=== PATIENT | female | born 1945 | race Caucasian/White ===

== ENCOUNTER → 2016-07-18 | Outpatient (CLI) | payer BC ==
[~2016-07-18] MED LIST: ACET-1325; ASPI81CH2 PO; CLXOPS3; DIFL0.0519; DVN80125 PO; GLC/500 PO; MULT-506 PO
--- NOTE | 2016-07-19 07:55 | MAMMOGRAPHY REPORT ---
BILATERAL DIGITAL SCREENING MAMMOGRAM WITH CAD: 07/18/2016 CLINICAL HISTORY: Routine screening. Patient has no complaints. TECHNIQUE: Current study was also evaluated with a Computer Aided Detection (CAD) system. Bilatera l CC and MLO views were obtained. COMPARISON: Comparison is made to exams dated: 06/28/2015 mammogram, 04/09/2014 mammogram, 3 mammogram, 04/02/2012 mammogram, 03/26/2011 mammogram, and 03/24/2010 mammogram - [facility]. BREAST COMPOSITION: There are scattered areas of fibroglandular density in both breasts. FINDINGS: No suspicious masses, calcifications, or areas of architectural distortion are noted in e ither breast. There has been no significant interval change compared to prior exams. Scattered bilat eral benign-appearing calcifications are not significantly changed. IMPRESSION: ACR BI-RADS CATEGORY 2: BENIGN There is no mammographic evidence of malignancy. A 1 year screening mammogram is recommended. The p atient will receive written notification of the results. Approximately 10% of breast cancers are not detected with mammography. A negative mammographic repor t should not delay biopsy if a clinically suggestive mass is present. Corry Staley M.D. /:07/18/2016 15:46:08 Skatesman: Nora MONTIEL(Kendal)(M), [facility] letter sent: Normal 1/2 BI-RADS Code: ACR BI-RADS Category 2: Benign
== END | disposition home or self-care (01) ==
LOC: C.MAMM 14:35
PROVIDERS: ATTEND Family Medicine
DX: Z12.31 Encounter for screening mammogram for malignant neoplasm of breast (principal)

== ENCOUNTER → 2017-08-16 | Outpatient (CLI) | payer BC ==
--- NOTE | 2017-08-19 14:34 | MAMMOGRAPHY REPORT ---
BILATERAL DIGITAL SCREENING MAMMOGRAM TOMOSYNTHESIS WITH CAD: 08/16/2017 CLINICAL HISTORY: Routine screening. Patient has no complaints. TECHNIQUE: Breast tomosynthesis in addition to standard 2D mammography was performed. Current study was also evaluated with a Computer Aided Detection (CAD) system. COMPARISON: Comparison is made to exams dated: 07/18/2016 mammogram, 06/28/2015 mammogram, 04/09/2014 m ammogram, 04/07/2013 mammogram, 04/02/2012 mammogram, and 03/26/2011 mammogram - [facility]. BREAST COMPOSITION: There are scattered areas of fibroglandular density in both breasts. FINDINGS: No suspicious masses, calcifications, or areas of architectural distortion are noted in ei ther breast. There has been no significant interval change compared to prior exams. Scattered bilater al benign-appearing calcifications are not significantly changed. IMPRESSION: ACR BI-RADS CATEGORY 2: BENIGN There is no mammographic evidence of malignancy. A 1 year screening mammogram is recommended. The pa tient will receive written notification of the results. Approximately 10% of breast cancers are not detected with mammography. A negative mammographic report should not delay biopsy if a clinically suggestive mass is present. Corry Staley M.D. /:08/16/2017 15:31:26 Hospital Clinic Assistant: Saskia Alfonso, [facility] letter sent: Normal 1/2 BI-RADS Code: ACR BI-RADS Category 2: Benign
== END | disposition home or self-care (01) ==
LOC: C.MAMM 15:09
PROVIDERS: ATTEND Family Medicine
DX: Z12.31 Encounter for screening mammogram for malignant neoplasm of breast (principal)

== ENCOUNTER 2018-07-16 14:01 | Inpatient (IN) ==
--- NOTE | 2018-07-16 15:05 | CT Scan Report ---
CT head/brain wo con CLINICAL HISTORY: 72 years-old Female presenting with stroke sx, fall 2 days ago, posterior head inju ry. TECHNIQUE: Multidetector CT imaging of the head was performed without the use of intravenous contrast . IV contrast: None. One or more dose lowering techniques were used consistent with the principles of ALARA (as low as reasonably achievable), including automatic exposure control, mA or kV adjustment t o individual patient size, and/or use of iterative reconstruction. COMPARISON: None. CT DOSE (mGy.cm): The estimated cumulative dose is 788.63 mGycm. FINDINGS: Court Bailiff topogram: Unremarkable. Proportional ventricular and sulcal prominence, likely age-related parenchymal volume loss. No hemorr dion. Periventricular and subcortical white matter hypoattenuation, nonspecific but likely indicative of chronic small vessel ischemic change. Extensive chronic small vessel change in the external capsu les, left greater right. Old lacunar infarct in the left globus pallidus. No acute territorial infarc t. No mass effect or midline shift. No extra-axial fluid collection. Paranasal sinuses and mastoid ai r cells clear. Calvarium intact. IMPRESSION: 1. Chronic small vessel ischemic change. No acute intracranial abnormality. Electronically signed by: Ye Calles M.D. 07/16/2018 3:04 PM
[2018-07-16] MEDS ORDERED: ASPIRIN CHEW 324 MG PO STA (15:39)
[2018-07-16] MEDS ORDERED: SODIUM CHLORIDE 0.9% 1000ML 1,000 ML IV SCH (15:45)
--- NOTE | 2018-07-16 16:05 | XRay Report ---
XR chest 1V portable HISTORY: Stroke symptoms. COMPARISON: Chest 01/10/2015. FINDINGS: The lungs are clear. Cardiac silhouette is normal in size. No pleural effusions. No pneumot horax. IMPRESSION: No acute process. Electronically signed by: Dao Madera M.D. 07/16/2018 4:04 PM
[2018-07-16 16:12] LABS: Basophils # (auto) 0.02 K/uL (0-0.2); Basophils % (auto) 0.3 %; Eosinophils # (auto) 0.04 K/uL (0-0.5); Eosinophils % (auto) 0.5 %; Hematocrit (blood only) 38.3 % (37-47); Hemoglobin 13.4 g/dL (12.0-16.0); Immature Granulocytes # (auto) 0.01 K/uL (0.00-0.02); Immature Granulocytes % (auto) 0.1 %; Lymphocytes # (auto) 0.79 K/uL (1.2-3.4); Lymphocytes % (auto) 10.4 %; Mean Corpuscular Volume 91.2 fL (80-100); Mean Platelet Volume 10.1 fL (7.4-10.4); Monocytes # (auto) 0.77 K/uL (0.11-0.59); Monocytes % (auto) 10.2 %; Neutrophils # (auto) 5.93 K/uL (1.4-6.5); Neutrophils % (auto) 78.5 %; Platelet Count 147 K/uL (130-400); RDW Standard Deviation 43.3 fL (36.4-46.3); White Blood Count 7.56 K/uL (4.8-10.8)
[2018-07-16 16:31] LABS: Alanine Aminotransferase 25 U/L (12-78); Albumin Level 2.6 gm/dl (3.4-5.0); Aspartate Aminotransferase 21 U/L (15-37); BUN Creatinine Ratio 17.9 (10-20); Blood Urea Nitrogen 32 mg/dl (7-18); Calcium 8.6 mg/dl (8.5-10.1); Carbon Dioxide 26 mmol/L (21-32); Chloride 98 mmol/L (98-107); Creatinine Clr Calc Pharmacy 26.9 ml/min; Est GFR (African American) 33.4; Est GFR (Non-African American) 28.8; Glucose 269 mg/dl (70-99); Magnesium 2.4 mg/dl (1.8-2.4); Sodium 133 mmol/L (136-145)
[2018-07-16 16:36] LABS: Albumin Globulin Ratio 0.6 (0.9-2); Alkaline Phosphatase 88 U/L (45-117); Bilirubin,Total 1.2 mg/dl (0.2-1); Globulin 4.5 gm/dl (2.5-4.0); Total Protein 7.1 gm/dl (6.4-8.2); Troponin I < 0.015 ng/ml (0-0.045)
[2018-07-16] MEDS ORDERED: SODIUM CHLORIDE 0.9% 1000ML 500 ML IV ONE (16:43)
--- NOTE | 2018-07-16 17:30 | Emergency Department Note ---
Entered by Tao Edward acting as a scribe for John Cabrera MD History of Present Illness General Chief complaint: Illness Stated complaint: HAVING TROUBLE SPEAKING Time Seen by Provider: 07/16/18 15:24 Source: patient and family History of Present Illness Onset (ago): day(s) 3 Location: mouth (speech) Pain Consistency: + other (persistent) Quality: + other (trouble finding words) Associated symptoms: + nausea/vomiting (night prior to symptom onset) and + oth er (denies one-sided weakness or urinary symptoms); no chest pain, no headaches and no shortness of breath The patient is a 72 year old female who presents to the Emergency Room with complaints of persistent speech difficulties for the past three days. The patient reports that she has been having trouble finding words, but her speech is not slurred. She denies headaches, one-sided weakness, chest pain, shortness of breath, urinary symptoms, or diarrhea. The notes that she vomited the night prior to the onset of her symptoms, but she has not vomited since that time. The patient reports that she has stopped taking her medications for the past three days, including metformin and medication for hypertension. She reports a history of stroke around 10 years ago, and the notes that she has a residual right facial droop from that event. Home Medications Home Medications Medication Instructions Recorded Confirmed Type aspirin [Aspir-81] 81 mg PO DAILY 07/16/18 07/16/18 History metformin [Glucophage] 0 mg PO BID 07/16/18 07/16/18 History multivitamin 1 tab PO DAILY 07/16/18 07/16/18 History valsartan-hydrochlorothiazide 0.5 tab PO DAILY 07/16/18 07/16/18 History [Diovan HCT] Allergies Allergy/AdvReac Type Severity Reaction Status Date / Time olmesartan AdvReac Unknown coughing/sn Verified 07/16/18 15:58 eezing Past Med/Surg History Medical History Essential hypertension Hemorrhagic cerebrovascular accident (CVA) (1994) Mixed hyperlipidemia Type 2 diabetes mellitus Surgical History S/P BRITTANY-BSO (total abdominal hysterectomy and bilateral salpingo-oophorectomy) S/P tonsillectomy Status post hernia repair Family History Other Colorectal cancer Diabetes Hypertension Social History Feels Safe at Home: Yes Smoking Status: Never smoker Review of Systems See HPI for pertinent positives & negatives. and A total of 10 systems reviewed and were otherwise negative Physical Exam Vital Signs Vital Signs - 24 hr 07/16/18 14:06 07/16/18 15:09 07/16/18 16:00 Temperature 37.2 C Temperature Source Oral Sepsis Recent Fever Within 48 Hours No Sepsis New/Unexplained Change in Mental Status No Sepsis Action Taken by Nursing No Action Required Pulse Rate 102 H Pulse Rate [Right Finger] 94 H 88 Pulse Rhythm [Right Finger] Regular Pulse Strength [Right Finger] Normal Respiratory Rate 16 18 18 Respiratory Effort / Characteristics Non-Labored Respiratory Depth Normal Respiratory Pattern Regular Blood Pressure 151/90 H Blood Pressure [Right Arm] 161/112 H 146/99 H Blood Pressure Mean 110 Blood Pressure Mean [Right Arm] 128 114 Blood Pressure Position [Right Arm] Lying Pulse Oximetry 95 95 99 Oxygen Delivery Method Room Air Room Air 07/16/18 18:00 Temperature Temperature Source Sepsis Recent Fever Within 48 Hours Sepsis New/Unexplained Change in Mental Status Sepsis Action Taken by Nursing Pulse Rate Pulse Rate [Right Finger] 80 Pulse Rhythm [Right Finger] Pulse Strength [Right Finger] Respiratory Rate 18 Respiratory Effort / Characteristics Respiratory Depth Respiratory Pattern Blood Pressure Blood Pressure [Right Arm] 150/91 H Blood Pressure Mean Blood Pressure Mean [Right Arm] 110 Blood Pressure Position [Right Arm] Pulse Oximetry 98 Oxygen Delivery Method GENERAL: Patient is in no acute distress. HEENT: No acute trauma, normocephalic atraumatic, mucous membranes moist, no nasal congestion, no scleral icterus. NECK: No stridor, no adenopathy, no meningismus, trachea is midline. LUNGS: Clear to auscultation bilaterally, no wheeze, no rhonchi, breath sounds equal. HEART: Without murmurs gallops or rubs, regular rate and rhythm. ABDOMEN: Soft, nontender, bowel sounds positive, no hernias, no peritonitis. EXTREMITIES: No cyanosis or edema, full range of motion of all the joints without pain or difficulty, no signs for acute trauma. NEUROLOGIC: Slight right-sided facial droop which is by history old, no pronator drift, no cerebellar dysfunction. No speech slur, but there is some difficulty finding words. SKIN: No rash, no jaundice, no diaphoresis. Course 1528: The patient was evaluated in room D4A, and a complete history and physical examination were performed. 1645: I updated the patient on current results and plan. 1655: I consulted Dr. Petit [facility] Hospitalist. The patient will be reevaluated for hospitalization. Consultations Consultation #1: I consulted Dr. Petit [facility] Hospitalist. The patient will be reevaluated for hospitalization. Time: 16:55 Administered Medications Discontinued Medications Aspirin (Aspirin) 324 mg PO NOW STA Stop: 07/16/18 15:40 Last Admin: 07/16/18 16:24 Dose: 324 mg Documented by: [id number] Sodium Chloride (Nss 1000ml) 1,000 mls @ 50 mls/hr IV .Q20H DAHIANA Stop: 08/15/18 15:44 Last Admin: 07/16/18 16:32 Dose: Not Given Documented by: [id number] Sodium Chloride (Nss 1000ml) 500 mls @ 999 mls/hr IV .Q31M ONE Stop: 07/16/18 17:13 Last Infusion: 07/16/18 17:30 Dose: 0 mls/hr Documented by: [id number] Admin: 07/16/18 16:53 Dose: 999 mls/hr Documented by: [id number] Medical Decision Making Differential Diagnosis Differential diagnosis: stroke, TIA, intracranial bleeding, UTI, viral illness, electrolyte imbalance, anemia, medication reaction, medication noncompliance Medical Records Attestation: I reviewed the patient's medical records. Home Medications Current Medication List: was personally reviewed by me Laboratory Data Attestation: I reviewed the patient's lab results. Result diagrams: 07/16/18 15:46 07/16/18 15:46 Lab Results 07/16/18 07/16/18 07/16/18 Range/Units 15:46 15:46 15:46 WBC 7.56 (4.8-10.8) K/uL RBC 4.20 (4.2-5.4) M/uL Hgb 13.4 (12.0-16.0) g/dL Hct 38.3 (37-47) % MCV 91.2 (80-100) fL MCH 31.9 (25-34) pg MCHC 35.0 (32-36) g/dL RDW Std Deviation 43.3 (36.4-46.3) fL RDW Coeff of Murray 13.0 (11.5-14.5) % Plt Count 147 (130-400) K/uL MPV 10.1 (7.4-10.4) fL Immature Gran % (Auto) 0.1 % Neut % (Auto) 78.5 % Lymph % (Auto) 10.4 % [place] % (Auto) 10.2 % Eos % (Auto) 0.5 % Baso % (Auto) 0.3 % Immature Gran # (Auto) 0.01 (0.00-0.02) K/uL Neut # (Auto) 5.93 (1.4-6.5) K/uL Lymph # (Auto) 0.79 L (1.2-3.4) K/uL [place] # (Auto) 0.77 H (0.11-0.59) K/uL Eos # (Auto) 0.04 (0-0.5) K/uL Baso # (Auto) 0.02 (0-0.2) K/uL PT Cancelled INR Cancelled APTT Cancelled PTT Ratio Cancelled Sodium 133 L (136-145) mmol/L Potassium 4.0 (3.5-5.1) mmol/L Chloride 98 (98-107) mmol/L Carbon Dioxide 26 (21-32) mmol/L Anion Gap 9.0 (3-11) BUN 32 H (7-18) mg/dl Creatinine 1.76 H (0.6-1.2) mg/dl Est Cr Clr Drug Dosing 26.9 ml/min Est GFR ( Amer) 33.4 Est GFR (Non-Af Amer) 28.8 BUN/Creatinine Ratio 17.9 (10-20) Glucose 269 H (70-99) mg/dl Calcium 8.6 (8.5-10.1) mg/dl Magnesium 2.4 (1.8-2.4) mg/dl Total Bilirubin 1.2 H (0.2-1) mg/dl AST 21 (15-37) U/L ALT 25 (12-78) U/L Alkaline Phosphatase 88 (45-117) U/L Troponin I < 0.015 (0-0.045) ng/ml Total Protein 7.1 (6.4-8.2) gm/dl Albumin 2.6 L (3.4-5.0) gm/dl Globulin 4.5 H (2.5-4.0) gm/dl Albumin/Globulin Ratio 0.6 L (0.9-2) 07/16/18 Range/Units 17:02 WBC (4.8-10.8) K/uL RBC (4.2-5.4) M/uL Hgb (12.0-16.0) g/dL Hct (37-47) % MCV (80-100) fL MCH (25-34) pg MCHC (32-36) g/dL RDW Std Deviation (36.4-46.3) fL RDW Coeff of Murray (11.5-14.5) % Plt Count (130-400) K/uL MPV (7.4-10.4) fL Immature Gran % (Auto) % Neut % (Auto) % Lymph % (Auto) % [place] % (Auto) % Eos % (Auto) % Baso % (Auto) % Immature Gran # (Auto) (0.00-0.02) K/uL Neut # (Auto) (1.4-6.5) K/uL Lymph # (Auto) (1.2-3.4) K/uL [place] # (Auto) (0.11-0.59) K/uL Eos # (Auto) (0-0.5) K/uL Baso # (Auto) (0-0.2) K/uL PT 11.0 INR 1.1 APTT 29.6 PTT Ratio 1.1 Sodium (136-145) mmol/L Potassium (3.5-5.1) mmol/L Chloride (98-107) mmol/L Carbon Dioxide (21-32) mmol/L Anion Gap (3-11) BUN (7-18) mg/dl Creatinine (0.6-1.2) mg/dl Est Cr Clr Drug Dosing ml/min Est GFR ( Amer) Est GFR (Non-Af Amer) BUN/Creatinine Ratio (10-20) Glucose (70-99) mg/dl Calcium (8.5-10.1) mg/dl Magnesium (1.8-2.4) mg/dl Total Bilirubin (0.2-1) mg/dl AST (15-37) U/L ALT (12-78) U/L Alkaline Phosphatase (45-117) U/L Troponin I (0-0.045) ng/ml Total Protein (6.4-8.2) gm/dl Albumin (3.4-5.0) gm/dl Globulin (2.5-4.0) gm/dl Albumin/Globulin Ratio (0.9-2) Imaging Data Radiologist's Impression: Radiology results as stated below per my review and the radiologist's interpretation: XR chest 1V portable HISTORY: Stroke symptoms. COMPARISON: Chest 01/10/2015. FINDINGS: The lungs are clear. Cardiac silhouette is normal in size. No pleural effusions. No pneumothorax. IMPRESSION: No acute process. Electronically signed by: Dao Madera M.D. 07/16/2018 4:[address] head/brain wo con CLINICAL HISTORY: 72 years-old Female presenting with stroke sx, fall 2 days ago, posterior head injury. TECHNIQUE: Multidetector CT imaging of the head was performed without the use of intravenous contrast. IV contrast: None. One or more dose lowering techniques were used consistent with the principles of ALARA (as low as reasonably achievable), including automatic exposure control, mA or kV adjustment to individual patient size, and/or use of iterative reconstruction. COMPARISON: None. CT DOSE (mGy.cm): The estimated cumulative dose is 788.63 mGycm. FINDINGS: Reeling Operator topogram: Unremarkable. Proportional ventricular and sulcal prominence, likely age-related parenchymal volume loss. No hemorrhage. Periventricular and subcortical white matter hypoattenuation, nonspecific but likely indicative of chronic small vessel ischemic change. Extensive chronic small vessel change in the external capsules, left greater right. Old lacunar infarct in the left globus pallidus. No acute territorial infarct. No mass effect or midline shift. No extra-axial fluid collection. Paranasal sinuses and mastoid air cells clear. Calvarium intact. IMPRESSION: 1. Chronic small vessel ischemic change. No acute intracranial abnormality. Electronically signed by: Ye Calles M.D. 07/16/2018 3:04 PM ECG Data Attestation: I personally reviewed and interpreted this ECG as follows: Indication: other (speech difficulties) Rate (beats per minute): 86 Rhythm: normal sinus Findings: + other (potential old septal infarct); no PVC and no ST elevation Blood Pressure Blood Pressure Findings: Elevated blood pressure Blood Pressure Disposition: further management by hospitalist MDM Narrative There is no leukocytosis or concerning anemia. There was an elevation to the creatinine, this could be consistent with dehydration. Glucose was slightly high at 269. No hepatitis by our testing. EKG shows a sinus rhythm, no acute ischemia. Cardiac enzyme testing x1 is not consistent with acute cardiac injury. Chest x-ray does not show mediastinal widening, pneumonia or pneumothorax. Brain CT shows no acute bleed or mass-effect. On exam, there were no focal neurologic extremity deficits. She did have some difficulty finding her words, no speech slur. The patient received IV saline. She was given oral aspirin. The patient is currently resting comfortably. I do think further workup in the hospital is warranted. She may have had a small stroke just not seen on CT. Further imaging and further neurologic workup is warranted. I spoke to the patient and case technician. The on-call hospitalist was consulted. Impression & Plan Stroke-like symptoms, Difficulty with speech, Vomiting, JUAN CARLOS (acute kidney injury) Discharge Plan Visit Data *Final* Discharge Date/Time: 07/16/18 18:33 Chief Complaint: Illness Stated Complaint: HAVING TROUBLE SPEAKING ED Provider: John Cabrera Discharge Problem: Stroke-like symptoms, Difficulty with speech, Vomiting, JUAN CARLOS (acute kidney injury) Patient Disposition: Admitted As Inpatient Discharge Instructions Interventions: ED Discharge Assessment Last Done: 07/16/18 18:33 Discharge Problem: Vomiting Qualifiers: Vomiting type: unspecified Vomiting Intractability: unspecified Nausea presence: unspecified Qualified Code(s): R11.10 - Vomiting, unspecified The scribe's documentation has been prepared under my direction and personally reviewed by me in its entirety. I confirm that the note above accurately reflects all work, treatment, procedures, and medical decision making performed by me.
[2018-07-16 17:37] LABS: INR 1.1 (0.9-1.1); Partial Thromboplastin Ratio 1.1; Partial Thromboplastin Time 29.6 Seconds (21.0-31.0)
--- NOTE | 2018-07-16 17:50 | History & Physical Report ---
Date of Service July 16, 2018 Assessment & Plan (1) Aphasia: - Patient presenting with difficulty finding words with very minimal stuttering of words - however speech largely comprehensible and follows commands/conversation - this started after a fall resulting in striking her head on a table and emesis - symptoms now have been present for a few days which would be outside the window of a TIA - H/O hemorrhagic CVA (1994) [place] [facility] [place] reports aphasia at that time but completely resolved and a mild facial droop that is very subtle and not noticeable on facial movements - Head CT - no acute findings; evidence of chronic small vessel ischemic changes, old lacunar infarct in L globus pallidus - Will order MRI to R/O CVA given her presentation that could be related to a possible new CVA - Carotid dopplers and monitor on telemetry for evidence of arrhythmia (denies H/O such) - Continue ASA 81 mg daily, will await MRI and consider Plavix addition - does have a hemorrhagic H/O but ischemic etiology may be a greater risk given her H/O T2DM, HTN, HLD - Will obtain an echocardiogram for further assessment - PT/OT/Speech; Stroke protocol - Consult Neurology - appreciate input Present on Admission?: Yes (2) JUAN CARLOS (acute kidney injury): - It is uncertain if this is JUAN CARLOS vs her baseline due to lack of records - she could easily have some diabetic nephropathy or even pre-renal from medications/emesis - Will trend BMP and gently hydrate with IVF and monitor - avoid nephrotoxins Present on Admission?: Yes (3) Type 2 diabetes mellitus: - She is uncertain of her A1c but states she thinks this is high - will check in AM labs - Hold Metformin given elevated Cr and cover with SSI Present on Admission?: Yes (4) Essential hypertension: - Hold Valsartan/HCTZ given elevated Cr and until CVA R/O'd Present on Admission?: Yes (5) Mixed hyperlipidemia: - Check lipid panel in AM - Start Atorvastatin 40 mg daily Present on Admission?: Yes (6) DVT prophylaxis: Disposition: Await further testing and PT/OT History of Present Illness Chief Complaint: Aphasia Primary Care Provider: Georges Carrillo Ms. Wong is a 72 y/o female with PMHx of Hemorrhagic CVA (1994), T2DM, HTN, and HLD who presents to the ED c/o aphasia. She reports that she sustained a fall on Saturday resulting in hitting the backside of the L side of her head. She states she initially had a mild headache and some pain with pushing on the head but this has since resolved. She is not completely sure how she fell but does not recall tripping. She states she hit her head on a table but denies LOC that she is aware of. She then developed one large episode of emesis on Saturday and nothing since. However, states she has never felt right since that emesis. She denies abdominal pain or nausea. Denies further headaches or vision changes. She then noted at sometime after her emesis she was having difficulty finding her words. She knows what she wants to say but cannot get them out. She can be slow to speak during my assessment and does struggle to find intermittent words. She would stutter on a couple words however followed the conversation well and could answer appropriately. Denies saying words that she does not mean to say. She also notes that she had difficulty ambulating up the stairs at her home. With help from her she was able to. She states it feels more like she has generalized weakness not so much motion or balance issues. She denies any other focal deficits she has noticed. She does follow routinely with her eye doctor amadeo baer her diabetes and states he sugars are not as controlled as she would like. She also states she has not taken her Metformin or BP medication for a couple days. She denies fever/chills, CP, SOB, palpitations, diarrhea/constipation. She states she did have aphasia with her previous stroke that resolved, has a mild facial droop at baseline, but no other residual deficits. Allergies Allergy/AdvReac Type Severity Reaction Status Date / Time olmesartan AdvReac Unknown coughing/sn Verified 07/16/18 15:58 eezing Home Medications Home Medications Medication Instructions Recorded Confirmed Type multivitamin 1 tab PO DAILY 07/16/18 07/16/18 History valsartan-hydrochlorothiazide 0.5 tab PO DAILY 07/16/18 07/16/18 History [Diovan HCT] cephalexin 500 mg PO BID #13 cap 07/17/18 Rx clopidogrel [Plavix] 75 mg PO DAILY 30 Days #30 tab 07/17/18 Rx metformin [Glucophage] 850 mg PO BID #0 tab 07/17/18 07/16/18 Rx Past Med/Surg History Medical History Essential hypertension Hemorrhagic cerebrovascular accident (CVA) (1994) Mixed hyperlipidemia Type 2 diabetes mellitus Surgical History History of cataract surgery History of knee replacement procedure of left knee S/P BRITTANY-BSO (total abdominal hysterectomy and bilateral salpingo-oophorectomy) S/P tonsillectomy Status post hernia repair Social History Communication Ability: Effective Beliefs That Will Affect Care: None marital status: Current Living Situation: Spouse current occupational status: retired Other Information That Helps Us Care for You: No other: 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, 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 [employer] Feels Safe at Home: Yes Safety Concerns: Feels Safe At This Time Smoking Status: Never smoker Hx Alcohol Use: No Hx Substance Use: No Review of Systems Constitutional: + fatigue and + weakness (generalized); no fever, no chills and no anorexia Eyes: no diplopia, no eye pain, no photophobia, not seeing flashes and no worsening vision Ear, Nose, Mouth, Throat: no dysphagia Respiratory: no cough and no dyspnea Cardiovascular: no chest pain, no palpitations, no lightheadedness and no edema Gastrointestinal: + vomiting (one episode on Saturday); no abdominal pain, no nausea, no constipation, no diarrhea/loose stools, no blood in stools and no melena Genitourinary (Female): no dysuria Musculoskeletal: no body aches Integumentary: no rash Neurologic: + falls, + generalized weakness, + headache(s) (initially on fall - none currently) and + abnormal speech; no tingling, no numbness, no abnormal movements, no confusion and no memory loss Physical Exam Vital Signs (Past 24 Hours): Last Vital Signs Temp 37.2 C 07/16/18 14:06 Pulse 88 07/16/18 16:00 Resp 18 07/16/18 16:00 BP 146/99 H 07/16/18 16:00 Pulse Ox 99 07/16/18 16:00 Constitutional: WD/WN, vitals as above Eyes: + anicteric sclerae, PERRL and EOM intact bilaterally ENMT: Ears: no hearing impairment Mouth: no oral mucosal abnormality and no tongue abnormality Throat: uvula midline; no posterior oropharynx abnormality Neck: normal visual inspection and trachea midline Respiratory: normal respiratory effort, lungs clear to auscultation Cardiovascular: RRR, no murmur, no edema Gastrointestinal (Abdomen): Inspection/Auscultation: normal bowel sounds Percussion/Palpation: abdomen soft; abdomen nontender Musculoskeletal: Head/Neck/Chest: normocephalic and head atraumatic Extrem ities: no cyanosis and no clubbing Skin: no rashes, warm and dry Neurologic: moves all extremities and awake Speech / Cognition: + abnormal speech and + anomia Motor/Sensory: no tremor, normal movement and no pronator drift Cranial Nerves: PERRL, normal accommodation, EOM intact bilaterally, tongue midline, normal hearing and no nystagmus Coordination: normal [id number] test (however movement was slow but connection intact) and normal rapid alternating movements Psychiatric: A+Ox3, euthymic affect Code Status & VTE Plan Code Status FULL CODE Supervising Physician Co-Signing Physician Notes Attending note: patient seen and examined with Hailee Shepherd PA-C. I agree with her HPI, history, exam, ROS and A/P. I personally reviewed the labs and imaging findings. Patient seen by me in the morning on 07/17/18. Discussed details of the admission over the phone with Hailee DIAZ on 07/16/18. Patient was feeling much better in the morning on 07/17. No further symptoms of word finding, weakness. Discussed results of MRI, no acute stroke, there was evidence of old strokes. Discussed with Dr. Krishna, appreciate his recommendations. - Possible expressive aphasia, weakness: likely a concussion from the fall she suffered several days prior to admission no evidence of acute stroke on MRI carotid doppler negative for significant stenosis see H&P and later the discharge summary for full details.
[2018-07-16] MEDS ORDERED: MAGNESIUM HYDROXIDE SUSP 30 ML UDC PO PRN (19:52)
[2018-07-16] MEDS ORDERED: POLYETHYLENE (MIRALAX) 17 GM PACK PO PRN (19:52)
[2018-07-16] MEDS ORDERED: ALUMINUM/MAGNESIUM SUSP 30 ML UDC PO PRN (19:52)
[2018-07-16] MEDS ORDERED: GLUCAGON FOR INJ 1 MG VIAL SQ PRN (19:52)
[2018-07-16] MEDS ORDERED: CARBOHYDRATES FOR HYPOGLYCEMIA PO PRN (19:52)
[2018-07-16] MEDS ORDERED: GLUCOSE 40% GEL 15 GM TUBE PO PRN (19:52)
[2018-07-16] MEDS ORDERED: PHARMACIST DISCHARGE MED REC CONSULT PRN (19:52)
[2018-07-16] MEDS ORDERED: GLUCOSE 10 TABS/TUBE PO PRN (19:52)
[2018-07-16] MEDS ORDERED: ACETAMINOPHEN 325 MG TAB PO PRN (19:52)
[2018-07-16] MEDS ORDERED: DEXTROSE 50% 50 ML SYRINGE IV PRN (19:52)
[2018-07-16] MEDS ORDERED: ONDANSETRON INJ 2 MG/ML 2 ML VIAL IV PRN (19:52)
[2018-07-16] MEDS: SODIUM CHLORIDE 0.9% 1000ML 1,000 ML IV SCH (20:51)
[2018-07-16 21:24] LABS: Appearance Urine Cloudy (Clear); Bacteria Urine Automated 4+ (Negative); Bilirubin Urine Negative (Negative); Blood Urine 3+ (Negative); Color Urine Dark Yellow; Glucose Urine UA 1+ (Negative); Ketones Urine 1+ (Negative); Leukocyte Esterase Urine 2+ (Negative); Nitrite Urine Positive (Negative); Protein Urine 2+ (Negative); RBC Urine Automated >30 /hpf (0-4); Specific Gravity Urine 1.019 (1.000-1.030); Urobilinogen Urine Negative (Negative); WBC Urine Automated >30 /hpf (0-5); pH Urine 5.5 (4.5-7.5)
--- NOTE | 2018-07-16 21:59 | Ultrasound Report ---
CAROTID ARTERY ULTRASOUND CLINICAL HISTORY: CVA Workup COMPARISON STUDY: None. TECHNIQUE: Real-time, grayscale, and color Doppler sonography of the carotid and vertebral arteries w as performed. Images were viewed in the transverse and longitudinal planes. FINDINGS: There is mild atherosclerotic plaque . Velocity measurements are listed below. COMMON CAROTID PEAK SYSTOLIC VELOCITY (CM/S): RIGHT 59 LEFT 81 ICA PEAK SYSTOLIC VELOCITY (CM/S): RIGHT 57 LEFT 74 Systolic ratios between the internal to common carotid arteries are normal. Antegrade flow is seen in the vertebral arteries. The external carotid arteries are patent. Blood pressure in the right arm measured 159/96. Blood pressure in the left arm measured 153/96. IMPRESSION: No evidence for a hemodynamically significant stenosis. Electronically signed by: Mario Doyle M.D. 07/16/2018 9:58 PM
--- NOTE | 2018-07-16 22:16 | Magnetic Resonance Report ---
MRI OF THE BRAIN WITHOUT CONTRAST CLINICAL HISTORY: Aphasia. Evaluate for cerebrovascular accident. COMPARISON STUDY: Head CT performed earlier today. TECHNIQUE: Utilizing a 1.5 Shayy magnet and dedicated coil, multiplanar, multiecho imaging of the bra in was performed without IV contrast. FINDINGS: There are no foci of restricted diffusion to suggest acute infarct. No acute intracranial h emorrhage, midline shift or mass effect is present. Several old lacunar infarcts are noted. An old le ft basal ganglia infarct is also noted. White matter T2 hyperintense foci suggest moderate small vess el disease. Basilar cisterns are patent. There are no extra-axial collections. Ventricular system is normal for age. Calvarial signal is maintained. Flow-voids for the major intracranial vessels are pre sent. Orbits are unremarkable. No intracranial masses are identified on this unenhanced exam. IMPRESSION: 1. No acute intracranial findings. 2. Several old infarcts and moderate small vessel disease. Electronically signed by: Mario Doyle M.D. 07/16/2018 10:14 PM
[2018-07-16] MEDS: INSULIN ASPART 100 UNITS/ML 3 ML PEN SC SCH (22:36)
[2018-07-17 06:44] LABS: Basophils # (auto) 0.01 K/uL (0-0.2); Basophils % (auto) 0.1 %; Eosinophils # (auto) 0.12 K/uL (0-0.5); Eosinophils % (auto) 1.6 %; Hemoglobin 12.7 g/dL (12.0-16.0); Immature Granulocytes # (auto) 0.03 K/uL (0.00-0.02); Immature Granulocytes % (auto) 0.4 %; Lymphocytes # (auto) 0.74 K/uL (1.2-3.4); Lymphocytes % (auto) 10.1 %; Mean Corpuscular Hgb Conc 35.3 g/dL (32-36); Mean Corpuscular Volume 91.4 fL (80-100); Mean Platelet Volume 9.6 fL (7.4-10.4); Monocytes # (auto) 0.87 K/uL (0.11-0.59); Monocytes % (auto) 11.9 %; Neutrophils # (auto) 5.55 K/uL (1.4-6.5); Neutrophils % (auto) 75.9 %; Platelet Count 148 K/uL (130-400); RDW Standard Deviation 44.1 fL (36.4-46.3); Red Blood Count 3.94 M/uL (4.2-5.4); White Blood Count 7.32 K/uL (4.8-10.8)
[2018-07-17 07:06] LABS: BUN Creatinine Ratio 21.5 (10-20); Calcium 8.5 mg/dl (8.5-10.1); Creatinine Clr Calc Pharmacy 37.1 ml/min; Est GFR (African American) 43.3; Est GFR (Non-African American) 37.3; Potassium 3.7 mmol/L (3.5-5.1)
[2018-07-17 08:33] LABS: Estimated Average Glucose 209 mg/dl; Hemoglobin A1C 8.9 % (4.5-5.6)
--- NOTE | 2018-07-17 08:47 | Neurology Consultation ---
Date of Consultation July 17, 2018 Assessment & Plan (1) Recent head trauma: Patient had an episode of head trauma in the manager technology hours of July 14. This was from a fall (lost her balance) striking her left occipital head region. She has had a number of symptoms since including word-finding difficulties, balance problems, and urinary urgency and incontinence. Currently, on neurologic examination, she has no acute or focal findings. She has a slight droop at the corner of the mouth on the right which moves voluntarily and a slight right drift with outstretched arms, both of which are likely old secondary to her previous hemorrhagic stroke. She has no encephalopathy, speech or word-finding problems, or meningeal signs. I suspect this patient has had a concussion from this head trauma. Clinically she is already making improvements and does not have any obvious word-finding difficulties today and her balance is better. MRI of the brain showed old small vessel ischemia and no acute changes. Therefore, there was no stroke. The time frame of her symptoms especially in conjunction with the head trauma make TIA much less likely. (2) Incontinence of urine: Patient has some incontinence of urine and urinary urgency which started after her head trauma 4 days ago. This would be an unusual symptom postconcussion, however, the patient has a probable urinary tract infection (cultures are pending). (3) Chronic cerebral ischemia: There are significant old small vessel ischemic changes/lacunar infarcts seen bilaterally. She does have a history of left hemispheric hemorrhage in 1994. I do not have any records of this but I suspect that she had a left basal ganglia hemorrhage secondary to her hypertension. (4) Hypertension: Patient has a longstanding history of hypertension not adequately controlled. (5) Diabetes: Patient has a longstanding history of diabetes, not currently adequately controlled. Hemoglobin A1c is markedly elevated at 8.9. Patient also has dyslipidemia with markedly elevated triglycerides. Recommendations: 1. Given her amount of old cerebral ischemia and risk factors for new small vessel ischemic disease, I recommend discontinuing aspirin and initiating clopidogrel 75 milligrams daily. 2. Echocardiogram is pending. 3. Control blood pressure as you are doing, aiming for a mean arterial pressure of between 95 and 100 4. Control glucose, trying to initially decrease hemoglobin A1c down to 7 5. Continue atorvastatin 40 milligrams daily. 6. Increase activity as able. This patient would likely benefit from physical therapy for gait training. She has joint issues in the legs and may benefit from an orthopedic consult as an outpatient. 7. Urine culture is pending; initiate antibiotic if positive. 8. I see no need for additional neurologic testing at this time. Please contact me if I can be of further assistance on this case. Overall, I spent a total of 85 minutes with this case including review of records, review of MRI films, direct evaluation the patient at bedside, discussion of the case with the patient, clinical staff, and Hailee Shepherd PA-C, including differential diagnosis and treatment options. History of Present Illness Reason for Consultation: Patient is a 72-year-old, who I was asked to see the request of Hailee Horner, for neurologic consultation regarding new onset speech problems with other issues. Requesting Physician: Hailee Horner Attending Physician: Moisés Villela, History of Present Illness Patient has a history of a left hemispheric hemorrhagic stroke in 1994 giving her some aphasia and right sided weakness. She recovered from this and has just some residual droop at the corner of her mouth on the right. Her speech was doing very well. Patient has a longstanding history of hypertension (30+ years), diabetes type 2 (45+ years), dyslipidemia. She has been on 81 milligram aspirin tablet, metformin and Diovan HCT She went to bed Saturday night July 13 feeling fine. Sometime in the middle the night she woke up try to ambulate to the bathroom but ended up losing her balance and falling backwards hitting her left occipital head region on a table. She denies loss of consciousness but was stunned for 2nd or 2. She noted trouble crawling back to bed. Later that morning she had a violent episode of emesis 1 time. She has not had any nausea or vomiting since. Since this head trauma, she has noted balance problems, which seem to be persistent. She has not fallen anymore. She has noted speech problems with word-finding difficulty. She knows what she wants to say but the words does not come out. She is not having slurred speech. She also has noted some urgency with urination and she can have incontinence if she does not make it to the bathroom. She denies numbness or weakness of the limbs specifically but does have left knee problems and some left hip and knee pain affecting her gait. This is old. She has no new vision problems or double vision. She arrived to the emergency room July 16 at 1406 with a temperature 37.2, pulse 102, respiratory rate 16, blood pressure 151/90 and O2 saturation 95 percent. In the emergency room blood pressure increased to 161/112. On exam she had the old right facial droop at the corner of the mouth and some word-finding difficulty noted. There were no other focal signs, meningeal signs, or encephalopathy. Chest x-ray was unremarkable. CT scan of the head showed old ischemia and no acute hemorrhage or other events. She was given aspirin in the emergency room. CBC was unremarkable. Chem profile was noted for an elevated BUN and creatinine and glucose of 269. Liver profile was unremarkable. Hemoglobin A1c is 8.9. Triglycerides were 363, cholesterol 169, and LDL 80 Urine is cloudy with elevated white cells and a culture is pending. Carotid ultrasound was unremarkable with no significant stenoses. MRI of the brain without contrast revealed old scattered lacunar infarcts including a left basal ganglia. There was moderate old small vessel ischemia in general and mild to moderate generalized atrophy. There were no acute findings. This morning blood pressure is 152/84 and the patient feels 100 percent better today. He is not having word-finding difficulties auras much balance problems today. She denies neck and low back pain. Allergies Allergy/AdvReac Type Severity Reaction Status Date / Time olmesartan AdvReac Unknown coughing/sn Verified 07/16/18 15:58 eezing Home Medications Home Medications Medication Instructions Recorded Confirmed Type aspirin [Aspir-81] 81 mg PO DAILY 07/16/18 07/16/18 History metformin [Glucophage] 0 mg PO BID 07/16/18 07/16/18 History multivitamin 1 tab PO DAILY 07/16/18 07/16/18 History valsartan-hydrochlorothiazide 0.5 tab PO DAILY 07/16/18 07/16/18 History [Diovan HCT] Patient History Medical History Essential hypertension Hemorrhagic cerebrovascular accident (CVA) (1994) Mixed hyperlipidemia Type 2 diabetes mellitus Surgical History History of cataract surgery History of knee replacement procedure of left knee S/P BRITTANY-BSO (total abdominal hysterectomy and bilateral salpingo-oophorectomy) S/P tonsillectomy Status post hernia repair Family History Mother Hypertension Diabetes Father , age 69 of a significant accident involving a train. 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 [employer] Feels Safe at Home: Yes Safety Concerns: Feels Safe At This Time Smoking Status: Never smoker Hx Alcohol Use: No Hx Substance Use: No Review of Systems Constitutional: no fever, no fatigue and no weakness Eyes: no diplopia, no eye pain and no worsening vision Ear, Nose, Mouth, Throat: no ear pain, no tinnitus, no hearing loss and no dysphagia Respiratory: no cough and no dyspnea Cardiovascular: no chest pain, no dyspnea and no palpitations Gastrointestinal: no abdominal pain, no nausea and no vomiting Genitourinary (Female): + urinary urgency and + urinary incontinence; no dysuria and no urinary frequency Musculoskeletal: no back pain, no neck pain, no radicular pain, no myalgia, no muscle weakness and no muscle atrophy Integumentary: no rash and no lesions Neurologic: + gait abnormality and + abnormal speech; no falls, no localized weakness, no generalized weakness, no tingling, no numbness, no tremor(s), no abnormal movements, no dizziness, no headache(s), no behavioral changes, no confusion and no memory loss Psychiatric: no depression, no abnormal sleep pattern, no anxiety, no difficulty concentrating, no confusion and no hallucinations Endocrine: no fatigue and no flushing Hematologic / Lymphatic: no easy bleeding and no easy bruising Allergy / Immunological: no urticaria Physical Exam Vital Signs (Past 24 Hours): Last Vital Signs Temp 36.8 C 07/17/18 06:58 Pulse 68 07/17/18 06:58 Resp 18 07/17/18 06:58 BP 152/84 H 07/17/18 06:58 Pulse Ox 98 07/17/18 06:58 Physical Exam: The patient is right-handed. The patient is awake, alert, and attentive. Speech is normal without any aphasia or dysarthria. Mentation and thought processes are intact, with full orientation and normal fund of knowledge. Attention and concentration are normal. Mood and affect are normal and appropriate. General appearance and grooming are normal. Short and long-term memory are intact. The discs are sharp with positive venous pulsations bilaterally. There are no exudates, hemorrhages, or blood vessel changes seen. Pupils are 3 mm bilaterally and reactive to light. Extraocular eye muscles are intact without nystagmus. Visual acuity and visual belcher seem normal grossly to confrontation. There are no deficits to sensation in the face in all 3 distributions of the fifth cranial nerve bilaterally. Corneal reflexes are positive bilaterally. Facial strength was normal bilaterally, however, there was a slight droop at the corner of the mouth on the right (which move voluntarily symmetrically). Hearing seems intact grossly to voice and finger rub bilaterally. Palate moves well without asymmetry. There is normal sternocleidomastoid and trapezius ( shoulder shrug) strength bilaterally. Tongue is midline with good strength bilaterally. Neck has a full range of motion without discomfort. There are no cervical bruits bilaterally. There are no cranial or ocular bruits. Heart is without murmur. There is a regular rhythm and rate. Cervical, thoracic, and lumbar spine are nontender to palpation. Gait is narrow based, with reasonable arm swing, turns, and stance, however, she limps favoring her left leg (knee and hip). Stance is normal eyes open. The patient can tandem walk without difficulty. T With outstretched arms there is very mild drift on the right but not the left. There are no resting, postural, or action tremors. There is no ataxia with finger to nose testing. There is good facility in the hands. No other abnormal involuntary movements are noted. Motor strength is 5/5 diffusely in the arms bilaterally including deltoids, biceps, triceps, brachioradialis, wrist flexors and extensors, supervisor records change, and intrinsic hand muscles. Motor strength is 5/5 diffusely in the legs bilaterally including hip flexors, quadriceps, hamstrings, gastrocnemius, tibialis anterior, tibialis posterior, and Peroneii muscles bilaterally. Toe extensors are normal and there is good bulk in the extensor digitorum brevis muscles bilaterally. The limbs have good tone without rigidity or spasticity. There is no atrophy noted in the muscles. Muscle bulk is normal, there is no tenderness to palpation, no myotonia to percussion, and no fasciculations seen. Sensory examination is intact to touch and pin throughout all 4 limbs diffusely. Reflexes are 2/4 in the biceps tendons bilaterally. Triceps tendons are 1/4 bilaterally and brachioradialis, quadriceps, and Achilles tendon reflexes are 0/4. Toes are downgoing with plantar stimulation bilaterally. Peripheral pulses are present and of normal quality distally in all 4 limbs. There is mild peripheral edema noted in the legs distally.. Results & Data Diagnostic Findings MRI OF THE BRAIN WITHOUT CONTRAST CLINICAL HISTORY: Aphasia. Evaluate for cerebrovascular accident. COMPARISON STUDY: Head CT performed earlier today. TECHNIQUE: Utilizing a 1.5 Shayy magnet and dedicated coil, multiplanar, multiecho imaging of the brain was performed without IV contrast. FINDINGS: There are no foci of restricted diffusion to suggest acute infarct. No acute intracranial hemorrhage, midline shift or mass effect is present. Several old lacunar infarcts are noted. An old left basal ganglia infarct is also noted. White matter T2 hyperintense foci suggest moderate small vessel disease. Basilar cisterns are patent. There are no extra-axial collections. Ventricular system is normal for age. Calvarial signal is maintained. Flow-voids for the major intracranial vessels are present. Orbits are unremarkable. No intracranial masses are identified on this unenhanced exam. IMPRESSION: 1. No acute intracranial findings. 2. Several old infarcts and moderate small vessel disease. Electronically signed by: Mario Doyle M.D. 07/16/2018 10:14 PM
[2018-07-17] MEDS: SODIUM CHLORIDE 0.9% 1000ML 1,000 ML IV SCH (08:51)
[2018-07-17] MEDS: INSULIN ASPART 100 UNITS/ML 3 ML PEN SC SCH ×2 (08:52→12:17)
[2018-07-17] MEDS ORDERED: cephALEXin 500 MG CAP PO SCH (09:00)
[2018-07-17] MEDS ORDERED: ASPIRIN 81 MG ECTAB PO SCH (09:00)
[2018-07-17] MEDS ORDERED: ATORVASTATIN 40 MG TAB PO SCH (09:00)
[2018-07-17] MEDS ORDERED: STROKE PATIENT DISCHARGE STA (12:54)
--- NOTE | 2018-07-17 13:38 | Pharmacy Report ---
Pharmacist Stroke Counseling - Date of Service July 17, 2018 - Scope: Pharmacy has been consulted to provide medication discharge counseling for this patient admitted with NO NEW STROKE BUT GOING HOME ON NEW ANTIPLT as per the Pharmacist Discharge Counseling for Stroke Patients Protocol. - Medications on Discharge: Home Medications Medication Instructions Recorded Confirmed multivitamin 1 tab PO DAILY 07/16/18 07/16/18 valsartan-hydrochlorothiazide 0.5 tab PO DAILY 07/16/18 07/16/18 [Diovan HCT] New Rx's Medication Instructions Recorded cephalexin 500 mg PO BID #13 cap 07/17/18 clopidogrel [Plavix] 75 mg PO DAILY 30 Days #30 tab 07/17/18 metformin [Glucophage] 850 mg PO BID #0 tab 07/17/18 - Action: The above medications, specifically ones for stroke treatment/prophylaxis, have been reviewed in detail with the patient and/or patient technical services representative(s) prior to discharge. This includes indication, common adverse reactions, drug interactions, and medication administration. Medication counseling has been employed using the teach-back method to ensure understanding. - Outcome: The patient and/or patient technical services representative(s) have demonstrated understanding of the medications. Please note, they are aware that the pharmacist will call them within 72 hours post-discharge to confirm that the appropriate medications are being taken and answer any further medication related questions the patient might have at that time. Contact information Individual to be contacted: Yahaira Wong Relationship to patient (if applicable): n/a Phone number: Best time to call: [phone] Additional comments: spoke with pt re: asa ---> Plavix switch. Pt is aware of the d-di with omeprazole. She does not take omeprazole OTC. She was made aware of the ADRs associated with plavix. She admits to taking multiple herbal supps at home. She can not remember which ones. we will discuss these tomorrow during my f/u phone call. Further, her had a heart transplant 15 years ago. he would like me to discuss his rx's with him as well. will f/u tomorrow Thank you for allowing pharmacy to be involved in the care of this patient. Please call [phone] or [phone] with any additional questions
--- NOTE | 2018-07-17 16:29 | Discharge Summary ---
Date of Service July 17, 2018 Admission HPI Per Admitting Provider Ms. Wong is a 72 y/o female with PMHx of Hemorrhagic CVA (1994), T2DM, HTN, and HLD who presents to the ED c/o aphasia. She reports that she sustained a fall on Saturday resulting in hitting the backside of the L side of her head. She states she initially had a mild headache and some pain with pushing on the head but this has since resolved. She is not completely sure how she fell but does not recall tripping. She states she hit her head on a table but denies LOC that she is aware of. She then developed one large episode of emesis on Saturday and nothing since. However, states she has never felt right since that emesis. She denies abdominal pain or nausea. Denies further headaches or vision changes. She then noted at sometime after her emesis she was having difficulty finding her words. She knows what she wants to say but cannot get them out. She can be slow to speak during my assessment and does struggle to find intermittent words. She would stutter on a couple words however followed the conversation well and could answer appropriately. Denies saying words that she does not mean to say. She also notes that she had difficulty ambulating up the stairs at her home. With help from her she was able to. She states it feels more like she has generalized weakness not so much motion or balance issues. She denies any other focal deficits she has noticed. She does follow routinely with her eye doctor given her diabetes and states he sugars are not as controlled as she would like. She also states she has not taken her Metformin or BP medication for a couple days. She denies fever/chills, CP, SOB, palpitations, diarrhea/constipation. She states she did have aphasia with her previous stroke that resolved, has a mild facial droop at baseline, but no other residual deficits. Principal Diagnosis Aphasia; E. Coli UTI Discharge Exam Constitutional WD/WN, vitals as above Eyes + anicteric sclerae, PERRL and EOM intact bilaterally ENMT Ears: no hearing impairment Mouth: no oral mucosal abnormality and no tongue abnormality Throat: uvula midline; no posterior oropharynx abnormality Neck normal visual inspection and trachea midline Respiratory normal respiratory effort, lungs clear to auscultation Cardiovascular RRR, no murmur, no edema Gastrointestinal (Abdomen) Inspection/Auscultation: normal bowel sounds Percussion/Palpation: abdomen soft; abdomen nontender Musculoskeletal Head/Neck/Chest: normocephalic and head atraumatic Extremities: no cyanosis and no clubbing Skin no rashes, warm and dry Neurologic moves all extremities and awake Speech / Cognition: normal speech Motor/Sensory: no tremor, normal movement and no pronator drift Cranial Nerves: PERRL, normal accommodation, EOM intact bilaterally, tongue midline, normal hearing and no nystagmus Coordination: normal [id number] test and normal rapid alternating movements Psychiatric A+Ox3, euthymic affect Discharge Data Allergies Allergy/AdvReac Type Severity Reaction Status Date / Time olmesartan AdvReac Unknown coughing/sn Verified 07/16/18 15:58 eezing Consultations 07/16/18 16:57 ED Decision to Admit Stat 07/16/18 19:52 Consult Case Management - Discharge Planning Routine Consult Neurology Routine Ordered Studies 07/16/18 14:11 CT head/brain wo con Stat 07/16/18 19:52 MR brain wo con Routine US carotid doppler BI Routine Hospital Course (1) Aphasia: - Occurred after a fall resulting in striking her head on a table - Speech is completely resolved today and very mild R facial droop present at rest (residual from prior CVA) but nothing on movement; no focal deficits elsewhere and again speech is completely resolved today - H/O hemorrhagic CVA (1994) - maybe hypertension induced? no records to review for this - MRI without acute CVA but evidence of small vessel disease and old lacunars/CVAs; Carotids negative for hemodynamically significant stenosis - No arrhythmias noted on monitor or H/O such - Did well with therapy and no speech needs - Change ASA 81 mg daily to Plavix 75 mg daily; Discussed statin therapy however she was unsure about this - lipid panel only with elevated triglycerides and can be discussed with PCP - Discussed with Neurology - given the precipitating factor of a fall this could be a post-concussive presentation, duration is quite too long for a TIA, but maybe caused by UTI? (2) E. coli UTI: - UA was pending on admission but likely symptoms could be due to this UTI. Growing E. coli with sensitivities pending - Patient is doing clinically well and did start Keflex 500 mg BID x 7 days and can monitor sensitivities to make sure this is susceptible - do not have prior Cx to compare previous infections/organisms (3) JUAN CARLOS (acute kidney injury): - It is uncertain if this is JUAN CARLOS vs her baseline due to lack of records - she could easily have some diabetic nephropathy or even pre-renal from medications/emesis - Cr increased from 1.7 down to 1.4 and maybe some dehydration was contributing to her symptoms (4) Type 2 diabetes mellitus: - A1c is 8.9 - Will continue Metformin now and likely could benefit from an additional agent or increased dosing - however that would be dependent on her baseline Cr as a different agent may be better suited (5) Essential hypertension: - Continue Valsartan/HCTZ - can continue at this time but may need different option pending on what her baseline Cr truly is; maybe played a role in the suspected JUAN CARLOS however for stroke prevention this would be beneficial to have good control (6) Mixed hyperlipidemia: - Lipid panel with elevated triglycerides Total Time Total Time Spent Total Time Spent (In Minutes): Greater than 30 minutes Discharge Plan Discharge Items Patient Disposition: Home - Self-Care Reason For Visit: APHASIA,CVA R/O Discharge Diagnosis: Word Finding Issues/Concussion; Urinary Tract Infection Discharge Goals: Decrease discomfort and Prevent disease Activity: Resume your previous activity Non-emergency contact: Primary Care Provider Call non-emergency contact if: you have any medication questions, your symptoms worsen and you have a fever Follow-up/Referrals: Georges Carrillo [Primary Care Provider] - Diet: Carb Consistent or DM2 Addtl Provider Instructions: Word Finding Issues: Possible Concussion: - Thankfully your MRI of the brain did not show a new stroke. It does show that you had a stroke in the past and have some changes that are caused by having high blood pressure. But again NO new stroke and NO bleeding in the brain - Your symptoms can likely be caused by a concussion given that you fell and it your head and vomiting and having different neurological symptoms could happen. - The best thing to do is rest and take it easy for a few days. Try to avoid watching too much TV or reading books in dim light (anything that makes you strain your eyes and such) so that your brain can rest some - The neurologist does recommend changing your baby aspirin to Plavix 75 mg daily. This is similar to aspirin but can have better protection to prevent strokes in the future. - Could also consider a cholesterol medication which you can discuss with your family doctor. - The [place]ura to stroke prevention for you is good sugar control and good blood pressure control. Which we will talk about below Urinary Tract Infection: - As well, your weakness and even your speech may have partially been impacted by a urinary tract infection (bacteria in the urine). You culture is growing e. coli which is a very common bacteria found during urinary tract infections. - For some people this can cause them to have memory issues or not act normal. Sometimes people never have actual urinary symptoms. - We will treat with Keflex 500 mg twice a day for 7 days. Sometimes people can get some loose stool with antibiotics so watch for that. Diabetes: - Your A1c is 8.9 which is higher than we would like to see it. If you can work towards getting this number closer to 7 that would be fantastic. - High sugars can cause blood vessel issues and can increase your risk of strokes. Recommend to continue your medications and talk with your doctor about it as a different medication may be a better option for you. High Blood Pressure: - Recommend to continue your blood pressure medication as prescribed and to have your blood pressures routinely checked. Your family doctor can monitor them and make medication adjustments if necessary Higher Kidney Number: - Your kidney number (creatinine) was a little higher than normal (we like this below 1.2 but is now 1.4) this could be from dehydration from your urinary tract infection and not feeling well over the past couple days. - However, Metformin and your blood pressure medication is processed through your kidneys more than other medications and may need this adjusted if your kidney numbers stay a little bumped up. However, you do not need to do anything about this right now but just need to have your labs routinely monitored with your family doctor. . Who to Call and When: Medical Emergencies: Call 911 immediately if you experience any of the following warning signs and symptoms of Stroke: * Sudden numbness or weakness of the face, arm or leg, especially on one side of the body * Sudden confusion, trouble speaking or understanding * Sudden trouble seeing in one or both eyes * Sudden trouble walking, dizziness, loss of balance or coordination * Sudden severe headache with no cause Do not delay calling 911 if you experience any warning signs or symptoms of a stroke. Delay in seeking medical attention may affect what treatments can be given to you. . Risk Factors for Stroke: You can reduce your chances of stroke by working with your medical provider to adopt a healthy lifestyle. Some specific ways to lower your chance of stroke are: * If you are a smoker, now is the time to stop smoking cigarettes * If you are diabetic, improve the control of your blood sugars * Avoid excessive amounts of alcohol * Control high blood pressure * Lose weight if you are overweight * Be sure to lead an active lifestyle * Eat a healthy diet low in salt, cholesterol and fat You should know about other risk factors for stroke that you are unable to control. These include: * Age 55 years or older * Male gender * Certain racial groups: , or / * Family History of Stroke, Mini stroke or Heart Attack * Sickle Cell Disease Follow Up: It is important for you to keep your follow up appointments with your medical provider. Who to Call and When: Medical Emergencies: Call 911 immediately if you experience any of the following warning signs and symptoms of Stroke: * Sudden numbness or weakness of the face, arm or leg, especially on one side of the body * Sudden confusion, trouble speaking or understanding * Sudden trouble seeing in one or both eyes * Sudden trouble walking, dizziness, loss of balance or coordination * Sudden severe headache with no cause Do not delay calling 911 if you experience any warning signs or symptoms of a stroke. Delay in seeking medical attention may affect what treatments can be given to you. . Prescriptions: New cephalexin 500 mg Capsule 500 mg PO BID Qty: 13 RF: 0 clopidogrel [Plavix] 75 mg tablet 75 mg PO DAILY 30 Days Qty: 30 RF: 1 Continued multivitamin Tablet 1 tab PO DAILY RF: 0 valsartan-hydrochlorothiazide [Diovan HCT] 80-12.5 mg tablet 0.5 tab PO DAILY RF: 0 Changed metformin [Glucophage] 850 mg tablet 850 mg PO BID Qty: 0 RF: 0 Discontinued aspirin [Aspir-81] 81 mg Tablet,Delayed Release (Dr/Ec) 81 mg PO DAILY RF: 0 Stand-Alone Forms: [facility] Discharge Orders: Discharge Order (Routine); Ordered 07/17/18 Ordered By: Hailee Shepherd Admission Data Admit Date/Time: 07/16/18 17:50 Attending Provider: Moisés Villela Admit Provider: Moisés Villela Primary Care Provider: Georges Carrillo Other Providers: Maximiliano Petit Emile Pierre III Service: Telemetry Medical Other Interventions: Discharge Summary Assessment (RN) Last Done: 07/17/18 13:06 Pending Studies at Discharge: No DC Date/Time DO NOT enter until pt leaves facility: 07/17/18 14:33
--- NOTE | 2018-07-18 10:52 | Pharmacy Report ---
Pharmacist Post D/C Phone Note - Phone Note: Date of phone call: July 18, 2018. Individual with whom pharmacist spoke to: VALERIE MAURICIO The following questions were reviewed during the phone call with responses listed below each: Can you tell me the medications that you are currently taking as well as when and how you take each medication? -See Table Below When have you missed any doses of your medications? - none yet What side effects are you having from your medications, specifically, the new medications you were started on? - none What questions do you have about your medications? - none What problems are you having obtaining your medications? - none When is your next appointment with your primary care doctor? - july [address] Georges Carrillo Additional comments: - D/w patient her herbal/OTC supps. She takes melatonin PRN insomnia. No other supps to report. Her was asleep at this time and not available to speak with me re: his anti rejection medications. They will call [facility] pharmacy if they have further questions As per the Pharmacist Discharge Counseling for Stroke Patients Protocol, this phone call has been completed within 72 hours of discharge. Thank you for allowing us to be involved in the care of this patient. - Home Medications: Home Medications Medication Instructions Recorded Confirmed multivitamin 1 tab PO DAILY 07/16/18 07/16/18 valsartan-hydrochlorothiazide 0.5 tab PO DAILY 07/16/18 07/16/18 [Diovan HCT] New Rx's Medication Instructions Recorded cephalexin 500 mg PO BID #13 cap 07/17/18 clopidogrel [Plavix] 75 mg PO DAILY 30 Days #30 tab 07/17/18 metformin [Glucophage] 850 mg PO BID #0 tab 07/17/18
== END 2018-07-17 14:33 | disposition home or self-care (01) | DRG 89 ==
LOC: ED 14:01 → 2W 17:50

== ENCOUNTER 2019-01-01 05:49 | Inpatient (IN) ==
--- NOTE | 2018-12-19 11:09 | PAT Medication Instructions ---
Medication Instructions Date of Service December 19, 2018 Home Medications multivitamin 1 tab PO DAILY valsartan-hydrochlorothiazide [Diovan HCT] 0.5 tab PO QAM aspirin 81 mg chewable tablet 81 mg PO QAM insulin glargine [Lantus U-100 Insulin] 10 unit SUBCUT HS metformin [Glucophage] 850 mg PO QAM DO NOT take the morning of surgery multivitamin 1 tab PO DAILY valsartan-hydrochlorothiazide [Diovan HCT] 0.5 tab PO QAM metformin [Glucophage] 850 mg PO QAM Take morning of surgery With a small sip of water, OTHERWISE NOTHING TO EAT OR DRINK AFTER MIDNIGHT: aspirin 81 mg chewable tablet 81 mg PO QAM Take evening before surgery insulin glargine [Lantus U-100 Insulin] 10 unit SUBCUT HS Other Notes If you have any questions please call us at [phone] or [phone] or [phone] or [phone]
--- NOTE | 2018-12-19 13:16 | Anesthesiology Consultation ---
Date of Service December 19, 2018 Assessment & Plan (1) Encounter for pre-operative examination: - Check BSG AM DOS Chart Review Chart Review: Acceptable Risk for Surgery (pending surgeon-ordered PCP clearance scheduled 12/24 (Dr. Carrillo)) and Patient seen in Pre Admission Testing Teaching & Discussion Pre-Anesthesia Teaching/Discussion Notes: Instructed NPO after midnight before surgery,except medications with 15 cc of water. Medication instructions provided according to the PAT guidelines. History Surgery Operation Date: 01/01/19 07:00 Proposed Procedures p Right Total Knee Arthroplasty - Ye Lucia MD Height/Weight Height: 5 ft Weight: 89 kg Allergies Allergy/AdvReac Type Severity Reaction Status Date / Time olmesartan Allergy Unknown coughing/sn Verified 12/12/18 15:34 eezing Medications Home Medications Medication Instructions Recorded Confirmed Last Taken multivitamin 1 tab PO DAILY 07/16/18 12/12/18 Unknown valsartan-hydrochlorothiazide 0.5 tab PO QAM 07/16/18 12/12/18 12/12/18 [Diovan HCT] aspirin 81 mg chewable tablet 81 mg PO QAM 11/27/18 12/12/18 12/12/18 insulin glargine [Lantus U-100 10 unit SUBCUT HS 12/12/18 12/12/18 12/11/18 Insulin] metformin [Glucophage] 850 mg PO QAM 12/12/18 12/12/18 12/12/18 Past Medical History Medical History CKD (chronic kidney disease) Cancer ?uterine (s/p hysterectomy, no chemo or radiation) Essential hypertension Hemorrhagic cerebrovascular accident (CVA) Hx (1994)- residual rare right hand weakness Mixed hyperlipidemia Obesity Osteoarthritis Type 2 diabetes mellitus IDDM Exercise / Class Metabolic Activity II 4-5 Yardwork/Stairs/Walk up hill Past Family History Family History Mother Hypertension Diabetes Father , age 69 of a significant accident involving a train. Diabetes Congenital kidney disease Sister Breast cancer Other Colorectal cancer Past Surgical History Surgical History History of cataract surgery B/L History of colonoscopy History of hand surgery LEFT X2 History of hernia repair History of knee replacement procedure of left knee History of tonsillectomy History of total abdominal hysterectomy and bilateral salpingo-oophorectomy Past Anesthesia History No Family Hx of Anesthesia Complications and Other "Slow to wake"; no known hx reintubation. History of PONV No Hx of PONV and No Hx of Motion Sickness Social History Smoking Status: Never smoker Do You Dip or Chew Tobacco: No Hx Alcohol Use: No Hx Substance Use: No substance use type: does not use Review of Systems Patient denies chest pain, shortness of breath, dyspnea on exertion, reflux, cough, wheezing, palpitations. Physical Exam Vital Signs VITALS BP 147/88 P 60 TEMP 98.3 SP02 97% RESP 18 PHYSICAL Full neck and c-spine range of motion. Full TMJ range of motion. TMD 4 finger breaths Mallampati Score 1 Dentition: missing molar, cracked molar, caps on molars Lungs: clear throughout to auscultation Cardiac: regular rate and rhythm, no murmurs noted Spine: normal Carotid arteries: negative bruit Extremities: no edema Testing Laboratory Results 12/19/18 13:36 12/19/18 13:36 PT 10.1 Seconds (9.0-12.0) 12/19/18 13:36 INR 1.0 (0.9-1.1) 12/19/18 13:36 APTT 26.0 Seconds (21.0-31.0) 12/19/18 13:36 Blood Type A Positive 12/19/18 13:36 Antibody Screen NEGATIVE 12/19/18 13:36 Electrocardiogram Date: 07/16/18 NSR at 86bpm. Possible LAE. NS STA. Inferior infarct (subsequent ECHO done 07/17/18*) Chest X-Ray Date: 07/16/18 Findings: + NAD Echocardiogram Date: 07/17/18 EF 50-55%. Possible apical HK (apex not well visualized). Mild cLVH. Type I DD. Mild LAD. Mild MR.
[2018-12-19 15:26] LABS: Basophils # (auto) 0.01 K/uL (0-0.2); Basophils % (auto) 0.2 %; Eosinophils # (auto) 0.13 K/uL (0-0.5); Eosinophils % (auto) 2.3 %; Hemoglobin 13.4 g/dL (12.0-16.0); Immature Granulocytes # (auto) 0.02 K/uL (0.00-0.02); Immature Granulocytes % (auto) 0.4 %; Lymphocytes # (auto) 1.48 K/uL (1.2-3.4); Lymphocytes % (auto) 26.3 %; Mean Corpuscular Hemoglobin 31.2 pg (25-34); Mean Corpuscular Hgb Conc 34.4 g/dL (32-36); Mean Corpuscular Volume 90.7 fL (80-100); Mean Platelet Volume 10.5 fL (7.4-10.4); Monocytes # (auto) 0.35 K/uL (0.11-0.59); Monocytes % (auto) 6.2 %; Neutrophils # (auto) 3.63 K/uL (1.4-6.5); Neutrophils % (auto) 64.6 %; Platelet Count 202 K/uL (130-400); RDW Standard Deviation 42.6 fL (36.4-46.3); White Blood Count 5.62 K/uL (4.8-10.8)
[2018-12-19 15:34] LABS: Albumin Level 3.2 gm/dl (3.4-5.0); BUN Creatinine Ratio 19.2 (10-20); Calcium 8.8 mg/dl (8.5-10.1); Creatinine Clr Calc Pharmacy 39.7 ml/min; Est GFR (African American) 47.7; Est GFR (Non-African American) 41.1; Potassium 4.2 mmol/L (3.5-5.1)
[2018-12-19 15:39] LABS: Prothrombin Time 10.1 Seconds (9.0-12.0)
[2018-12-19 16:43] LABS: Appearance Urine Clear (Clear); Bacteria Urine Automated Negative (Negative); Bilirubin Urine Negative (Negative); Blood Urine Negative (Negative); Color Urine Yellow; Epithelial Cell Urine Auto >30 /lpf (0-5); Glucose Urine UA Negative (Negative); Ketones Urine Negative (Negative); Leukocyte Esterase Urine 1+ (Negative); Nitrite Urine Negative (Negative); Protein Urine Negative (Negative); RBC Urine Automated 0-4 /hpf (0-4); Specific Gravity Urine 1.021 (1.000-1.030); Urobilinogen Urine Negative (Negative); pH Urine 5.5 (4.5-7.5)
[2018-12-20 06:56] LABS: Estimated Average Glucose 148 mg/dl; Hemoglobin A1C 6.8 % (4.5-5.6)
--- NOTE | 2018-12-30 20:25 | History & Physical Report ---
Date of Service December 30, 2018 Assessment & Plan (1) Osteoarthritis of right knee: Treatment options discussed. She has failed conservative measures as above. Previously has done well with right knee replacement. Risks, benefits and alternatives to surgery including but not limited to infection, DVT, pain, stiffness, need for revision surgery, damage to blood vessels, damage to nerves, PE, , were discussed with the patient and they wish to proceed. Plan will be for right total knee arthroplasty. Will plan on aspirin 81mg BID x 30 days for DVT prophylaxis. She plans on [facility] upon discharge from the hospital. All questions answered. She will follow up post operatively. Osteoarthritis type: primary Qualified Code(s): M17.11 - Unilateral primary osteoarthritis, right knee History of Present Illness Chief Complaint: Right knee pain Primary Care Provider: Georges Carrillo 72 year old female with PMHx significant for HTN, high cholesterol, DM2, CVA, CKD, lymphedema left leg presents with chronic right knee pain. Her pain is a ffecting her daily activities. She has previous left total knee arthroplasty. She has failed conservative measures including cortisone injections. She would like to proceed with right knee replacement. Patient denies headaches, sweats, fevers, chills, double vision, blurred vision, cough, sore throat, dysphagia, chest pain, sob, wheezing, n/v/d/c, numbness, tingling, fatigue, urinary symptoms, mood disorders. ROS positive for right knee pain and stiffness. Allergies Allergy/AdvReac Type Severity Reaction Status Date / Time olmesartan Allergy Unknown coughing/sn Verified 12/12/18 15:34 eezing Home Medications Home Medications Medication Instructions Recorded Confirmed Type multivitamin 1 tab PO DAILY 07/16/18 12/12/18 History valsartan-hydrochlorothiazide 0.5 tab PO QAM 07/16/18 12/12/18 History [Diovan HCT] aspirin 81 mg chewable tablet 81 mg PO QAM 11/27/18 12/12/18 History insulin glargine [Lantus U-100 10 unit SUBCUT HS 12/12/18 12/12/18 History Insulin] metformin [Glucophage] 850 mg PO QAM 12/12/18 12/12/18 History Past Med/Surg History Medical History CKD (chronic kidney disease) Cancer ?uterine (s/p hysterectomy, no chemo or radiation) Essential hypertension 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 [employer] Feels Safe at Home: Yes Smoking Status: Never smoker Do You Dip or Chew Tobacco: No ; Hx Alcohol Use: No Hx Substance Use: No Review of Systems All systems reviewed & are unremarkable except as noted in HPI & below Physical Exam Constitutional: well developed and well nourished; no acute distress Eyes: PERRL, conjunctivae normal, anicteric sclerae ENMT: external ear and nose normal, oropharynx normal Neck: trachea midline, no thyromegaly Respiratory: normal respiratory effort, lungs clear to auscultation Cardiovascular: RRR, no murmur, no edema Musculoskeletal: Right knee: Tenderness medial joint line and PF joint. Crepitus with ROM with discomfort. Stable to valgus and varus stress tests. Skin: no rashes, warm and dry Neurologic: patellar DTR's 2+ bilat, sensation intact Psychiatric: A+Ox3, euthymic affect Results & Data Laboratory Results Lab Results 12/19/18 12/19/18 12/19/18 Range/Units 13:36 13:36 13:36 WBC 5.62 (4.8-10.8) K/uL RBC 4.30 (4.2-5.4) M/uL Hgb 13.4 (12.0-16.0) g/dL Hct 39.0 (37-47) % MCV 90.7 (80-100) fL MCH 31.2 (25-34) pg MCHC 34.4 (32-36) g/dL RDW Std Deviation 42.6 (36.4-46.3) fL RDW Coeff of Murray 13.0 (11.5-14.5) % Plt Count 202 (130-400) K/uL MPV 10.5 H (7.4-10.4) fL Immature Gran % (Auto) 0.4 % Neut % (Auto) 64.6 % Lymph % (Auto) 26.3 % Brule % (Auto) 6.2 % Eos % (Auto) 2.3 % Baso % (Auto) 0.2 % Immature Gran # (Auto) 0.02 (0.00-0.02) K/uL Neut # (Auto) 3.63 (1.4-6.5) K/uL Lymph # (Auto) 1.48 (1.2-3.4) K/uL Brule # (Auto) 0.35 (0.11-0.59) K/uL Eos # (Auto) 0.13 (0-0.5) K/uL Baso # (Auto) 0.01 (0-0.2) K/uL PT 10.1 (9.0-12.0) Seconds INR 1.0 (0.9-1.1) APTT 26.0 (21.0-31.0) Seconds PTT Ratio 1.0 Sodium 141 (136-145) mmol/L Potassium 4.2 (3.5-5.1) mmol/L Chloride 107 (98-107) mmol/L Carbon Dioxide 29 (21-32) mmol/L Anion Gap 5.0 (3-11) BUN 25 H (7-18) mg/dl Creatinine 1.31 H (0.6-1.2) mg/dl Est Cr Clr Drug Dosing 39.7 ml/min Est GFR ( Amer) 47.7 Est GFR (Non-Af Amer) 41.1 BUN/Creatinine Ratio 19.2 (10-20) Glucose 190 H (70-99) mg/dl Estimat Average Glucose mg/dl Hemoglobin A1c (4.5-5.6) % Calcium 8.8 (8.5-10.1) mg/dl Albumin 3.2 L (3.4-5.0) gm/dl Urine Color Urine Appearance (Clear) Urine pH (4.5-7.5) Ur Specific [place] (1.000-1.030) Urine Protein (Negative) Urine Glucose (UA) (Negative) Urine Ketones (Negative) Urine Blood (Negative) Urine Nitrite (Negative) Urine Bilirubin (Negative) Urine Urobilinogen (Negative) Ur Leukocyte Esterase (Negative) Urine WBC (Auto) (0-5) /hpf Urine RBC (Auto) (0-4) /hpf U Hyaline Cast (Auto) (0-5) /lpf U Epithel Cells (Auto) (0-5) /lpf Urine Bacteria (Auto) (Negative) Blood Type Antibody Screen 12/19/18 12/19/18 12/19/18 Range/Units 13:36 13:36 Unknown WBC (4.8-10.8) K/uL RBC (4.2-5.4) M/uL Hgb (12.0-16.0) g/dL Hct (37-47) % MCV (80-100) fL MCH (25-34) pg MCHC (32-36) g/dL RDW Std Deviation (36.4-46.3) fL RDW Coeff of Murray (11.5-14.5) % Plt Count (130-400) K/uL MPV (7.4-10.4) fL Immature Gran % (Auto) % Neut % (Auto) % Lymph % (Auto) % Brule % (Auto) % Eos % (Auto) % Baso % (Auto) % Immature Gran # (Auto) (0.00-0.02) K/uL Neut # (Auto) (1.4-6.5) K/uL Lymph # (Auto) (1.2-3.4) K/uL Brule # (Auto) (0.11-0.59) K/uL Eos # (Auto) (0-0.5) K/uL Baso # (Auto) (0-0.2) K/uL PT (9.0-12.0) Seconds INR (0.9-1.1) APTT (21.0-31.0) Seconds PTT Ratio Sodium (136-145) mmol/L Potassium (3.5-5.1) mmol/L Chloride (98-107) mmol/L Carbon Dioxide (21-32) mmol/L Anion Gap (3-11) BUN (7-18) mg/dl Creatinine (0.6-1.2) mg/dl Est Cr Clr Drug Dosing ml/min Est GFR ( Amer) Est GFR (Non-Af Amer) BUN/Creatinine Ratio (10-20) Glucose (70-99) mg/dl Estimat Average Glucose 148 mg/dl Hemoglobin A1c 6.8 H (4.5-5.6) % Calcium (8.5-10.1) mg/dl Albumin (3.4-5.0) gm/dl Urine Color Yellow Urine Appearance Clear (Clear) Urine pH 5.5 (4.5-7.5) Ur Specific [place] 1.021 (1.000-1.030) Urine Protein Negative (Negative) Urine Glucose (UA) Negative (Negative) Urine Ketones Negative (Negative) Urine Blood Negative (Negative) Urine Nitrite Negative (Negative) Urine Bilirubin Negative (Negative) Urine Urobilinogen Negative (Negative) Ur Leukocyte Esterase 1+ H (Negative) Urine WBC (Auto) 1-5 (0-5) /hpf Urine RBC (Auto) 0-4 (0-4) /hpf U Hyaline Cast (Auto) 1-5 (0-5) /lpf U Epithel Cells (Auto) >30 H (0-5) /lpf Urine Bacteria (Auto) Negative (Negative) Blood Type A Positive Antibody Screen NEGATIVE Diagnostic Findings Right knee radiographs: Significant degenerative changes PF [id number] patellofemoral joint with periarticular osteophyte formation. Mild joint space narrowing medial compartment.
[2019-01-01] MEDS ORDERED: CeleBREX 200 MG CAP PO SCH (06:00)
[2019-01-01] MEDS ORDERED: GABAPENTIN 300 MG CAP PO SCH (06:00)
[2019-01-01] MEDS ORDERED: CEFAZOLIN 2000MG 2,000 MG/15 ML SYR IV SCH (06:00)
[2019-01-01] MEDS ORDERED: ACETAMINOPHEN 500 MG TAB PO SCH (06:00)
[2019-01-01] MEDS ORDERED: SODIUM CHLORIDE 0.9% 1,000 ML IV SCH (06:00)
[2019-01-01] MEDS ORDERED: dexAMETHasone 4 MG TAB PO SCH (06:00)
[2019-01-01] MEDS ORDERED: METOCLOPRAMIDE HCL 10 MG TABLET PO SCH (06:00)
[2019-01-01] MEDS ORDERED: FAMOTIDINE 20 MG TAB PO SCH (06:00)
[2019-01-01] MEDS ORDERED: BUPIVACAINE 0.5 % 5 MG/1 ML PF 10ML VIAL ONE (06:37)
[2019-01-01] MEDS ORDERED: BUPIVACAINE/EPINEPHRINE 0.25% 1:200,000 30 ML VIAL ONE (06:37)
--- NOTE | 2019-01-01 06:59 | History & Physical Bridge Note ---
Date of Service January 01, 2019 History & Physical Bridge Note I have examined the patient, reviewed the History & Physical and in the interval since the performance of the History & Physical I have noted the following changes of clinical significance: no changes noted
[2019-01-01] MEDS ORDERED: BACITRACIN INJ 50,000 UNIT VIAL ONE (07:14)
[2019-01-01] MEDS ORDERED: ROPIVACAINE 0.5% HCL/PF 150 MG, BUPIVACAINE 0.5% MPF 30 ML, EPINEPHrine 30MG/30ML (OR U... INFIL SCH (07:30)
[2019-01-01] MEDS ORDERED: MIDAZOLAM HCL 1 MG/ML 2ML VIAL ONE (07:31)
[2019-01-01] MEDS ORDERED: fentaNYL citrate 100 MCG/2 ML VIAL ONE (07:31)
[2019-01-01] MEDS ORDERED: ONDANSETRON INJ 2 MG/ML 2 ML VIAL ONE (09:24)
[2019-01-01] MEDS ORDERED: LIDOCAINE HCL 2% 2 ML VIAL/AMP(20MG/ML) INFIL ONE (09:24)
--- NOTE | 2019-01-01 09:34 | Operative Report ---
Post Operative Report Pre & Post Diagnosis Operation Date: 01/01/19 08:30 Pre-Op Diagnosis: Right Knee Osteoarthritis Post-Op Diagnosis: Right Knee Osteoarthritis Procedure Operation Date: 01/01/19 08:30 Actual Procedures p Right Total Knee Arthroplasty(Right) - Ye Lucia MD Surgeon Ye Lucia MD Security Management Specialist Jorge Cleveland PA-C Estimated Blood Loss 20 Findings Consistent with Post-Op Diagnosis Specimens none Drains 2 hemovac Anesthesia Type Spinal MAC Complications none Disposition Accompanied Patient To Recovery: No Disposition: Recovery Room Indications Patient is a 73-year-old female long-standing arthritic change of the knee. She is [id number] particular the patellofemoral joint. She has failed conservative measures. She previously had a total knee arthroplasty in the contralateral side and is done well and wishes to proceed with total knee on the side. Description of Procedure Risks benefits and alternatives of surgery including but not limited to infection, DVT, pain, stiffness, need for surgery, damage to blood vessels, damage to nerves or risks of anesthesia were discussed with the patient and they wished to proceed. The patient was identified and the laterality was confirmed and marked. They received a preoperative antibiotic as well as a spinal anesthetic and an abductor canal block. A well-padded tourniquet was applied and then the limb was prepped and draped in standard manner with ChloraPrep. The limb was exsanguinated and the tourniquet was inflated. I made a standard anterior incision. I sharply incised the skin then utilized Bovie electrocautery to achieve hemostasis. I made a medial parapatellar arthrotomy and mobilized the patella laterally. I then excised the anterior horns of the medial and lateral meniscus as well as the infrapatellar fat pad. I elevated a portion of the MCL off of the tibia. I then pinned into place a patient-matched distal femoral cutting guide and made my distal femoral resection. I then pinned into place the 5 in 1 femoral cutting guide. I made my anterior, posterior and chamfer cuts. I then excised the cruciates and the remaining portions of the menisci. I then pinned into place a patient- matched tibial cutting guide and made my tibial resection. I then pinned into place the tibial plate a utilizing alignment calvin to confirm rotation. I then cut for the post. Utilizing a lamina commercial roofing estimator and I then removed posterior osteophytes off the femur. I then placed a trial femur into position and cut for the trochlear component. I then sequentially trialed to size the polyethylene until there was good soft tissue balancing and range of motion. I then prepared the patella with a freehand cut utilizing sagittal saw. I sized and drilled for the patella. There was good tracking to the patella no lateral release was needed. All the trial components were removed. The deep tissues were anesthetized with an ortho mix solution. Then with Simplex HV with gentamicin cement, I cemented my definitive components. Definitive components, Mcclendon and Nephew Sandyney 2: Femur 5 Tibia 3 Poly 9 Patella 32 oval A betadine soak was performed. A deep drain was placed. The arthrotomy was closed with interrupted #1 Vicryl suture subcutaneous tissue was closed with interrupted 2-0 Vicryl suture. The skin was closed with with oliver. An Acticoat and Serena dressing were placed. Sterile dressings were applied. All needle and sponge counts were correct at the end of the procedure patient was transferred to the PACU in stable condition without apparent complication. The PA-C was necessary for assistance with procedure for assistance in positioning, prepping, draping, retraction and closure. I attest to the content of the Intraoperative Record and any orders documented therein. Any exceptions are noted below.
--- NOTE | 2019-01-01 10:26 | XRay Report ---
XR knee RT 2V routine CLINICAL HISTORY: Postop arthroplasty COMPARISON: None. DISCUSSION: There are postsurgical changes of a total right knee arthroplasty and patellar resurfacin g. The femoral and tibial components appear well seated. Overlying skin oliver and surgical drains a re evident. There is air within the soft tissues consistent with recent surgery. IMPRESSION: Postsurgical changes of a total right knee arthroplasty. Electronically signed by: Yousuf Brantley M.D. 01/01/2019 10:24 AM
--- NOTE | 2019-01-01 10:48 | Anesthesiology Progress Note ---
Date of Service January 01, 2019 Anesthesia Post Procedure Vital Signs Vital Signs: Temp Pulse Pulse Pulse Resp BP BP 01/01/19 10:25 76 16 144/83 H 01/01/19 10:22 73 17 01/01/19 10:21 74 15 132/76 01/01/19 10:20 76 13 132/76 01/01/19 10:16 79 15 01/01/19 10:15 77 15 139/78 01/01/19 10:11 75 14 01/01/19 10:10 75 16 131/76 01/01/19 10:06 74 16 01/01/19 10:05 78 14 116/73 01/01/19 10:04 83 17 01/01/19 10:03 36.0 C L 83 75 15 121/72 121/72 01/01/19 06:30 37.0 C 63 20 217/104 H Pulse Ox 01/01/19 10:25 99 01/01/19 10:22 100 01/01/19 10:21 99 01/01/19 10:20 100 01/01/19 10:16 100 01/01/19 10:15 100 01/01/19 10:11 99 01/01/19 10:10 100 01/01/19 10:06 99 01/01/19 10:05 98 01/01/19 10:04 100 01/01/19 10:03 98 01/01/19 06:30 97 Pain Intensity Right Knee: Pain Intensity: 0 Transfer of Care Handoff Completed per policy Notes Mental Status: alert / awake / arousable and participated in evaluation Patient Amnestic to Procedure: Yes Nausea / Vomiting: adequately controlled Pain: adequately controlled Airway Patency, RR, SpO2: stable & adequate BP & HR: stable & adequate Hydration State: stable & adequate Anesthetic Complications: no major complications apparent and Pt Satisfied with anesthetic care
[2019-01-01] MEDS ORDERED: NALOXONE HCL 0.4 MG/1 ML VIAL/CARP IV PRN (11:28)
[2019-01-01] MEDS ORDERED: HYDROmorphone INJ 0.5 MG/0.5 ML SYR IV PRN (11:28)
[2019-01-01] MEDS ORDERED: bisacodyL 10 MG SUPP PR PRN (11:28)
[2019-01-01] MEDS ORDERED: ONDANSETRON INJ 2 MG/ML 2 ML VIAL IV PRN (11:28)
[2019-01-01] MEDS ORDERED: MAGNESIUM HYDROXIDE SUSP 30 ML UDC PO PRN (11:28)
[2019-01-01] MEDS ORDERED: PHARMACY GLYCEMIC MGMT CONSULT PRN (11:32)
[2019-01-01] MEDS ORDERED: ePHEDrine sulfate 50 MG/ML AMP IV PRN (11:36)
[2019-01-01] MEDS ORDERED: ATROPINE SULFATE 0.1 MG/ML 10ML SYR IV PRN (11:36)
[2019-01-01] MEDS ORDERED: GLUCAGON FOR INJ 1 MG VIAL IM PRN (12:45)
[2019-01-01] MEDS ORDERED: CARBOHYDRATES FOR HYPOGLYCEMIA PO PRN (12:45)
[2019-01-01] MEDS ORDERED: GLUCOSE 10 TABS/TUBE PO PRN (12:45)
[2019-01-01] MEDS ORDERED: DEXTROSE 50% 50 ML SYRINGE IV PRN (12:45)
[2019-01-01] MEDS ORDERED: INSULIN HUMAN NPH SC ONE (12:45)
[2019-01-01] MEDS ORDERED: GLUCOSE 40% GEL 15 GM TUBE PO PRN (12:45)
[2019-01-01] MEDS ORDERED: INSULIN GLARGINE SOLOSTAR 100 UNITS/ML 3 ML PEN SC ONE (13:00)
[2019-01-01] MEDS: INSULIN ASPART 100 UNITS/ML 3 ML PEN SC SCH ×3 (13:26→21:03)
[2019-01-01] MEDS: ACETAMINOPHEN 500 MG TAB PO SCH ×2 (13:29→21:02)
[2019-01-01] MEDS: SODIUM CHLORIDE 0.9% 1000ML 1,000 ML IV SCH ×2 (13:30→21:03)
--- NOTE | 2019-01-01 14:34 | Pharmacy Report ---
Glycemic Control Consultation - Date of Service January 01, 2019 - Scope Scope: Glycemic Pharmacist consulted by Jorge Cleveland on 01/01/19 for glycemic control and to write orders per [facility] inpatient glycemic control protocol - Objective Weight: 88.9 kg Accuchecks BSG (last 24hrs): 01/01/19 01/01/19 01/01/19 06:13 10:26 11:58 POC Glucose 168 H 189 H 211 H HbA1c: Hemoglobin A1c 6.8 % (4.5-5.6) H 12/19/18 13:36 - Recent Pertinent Medications Outpatient Anti-diabetic Regimen: * Metformin 850mg PO QAM * Lantus 10 units SQ HS Risk Factors for Insulin Resistance: * Steroids: Dexamethasone 8mg PO preop * Recent Surgery * Diet - Assessment & Plan Assessment & Plan: ASSESSMENT: * 73yo T2DM female with adequate outpatient glycemic control per recent A1c * Pt is maintained on oral antidiabetic agent + basal insulin as an outpatient * Oral agents are not recommended for inpatient use d/t drug interactions, changing PO intake, and difficulty titrating for acute hyper/hypoglycemia. ADA recommends re-initiating outpatient oral agents 1-2 days prior to discharge if/when appropriate if they were held on admission. * Will hold oral agents for admission and utilize SQ basal bolus insulin regimen which is the recommended regimen for inpatient glycemic control. * Will initiate stress outpatient dosing of Lantus and add corresponding basal insulin parameters * Goal is to maintain post op BSGs <200 mg/dl (ideally less than 150mg/dl) to prevent post-op complications PLAN FOR INPATIENT GLYCEMIC CONTROL: * Hold outpatient oral diabetes medications * Basal insulin * Lantus 30 units SQ x 1 dose today and then resume Lantus 10 units SQ HS starting tomorrow * Bolus insulin * NovoLog per scale ACHS or Q6hrs while NPO. Additional checks/coverage at 0000 & 0400 tonight * Goal Range: Low 110 mg/dL - High 140 mg/dL * Correction Factor: 20 mg/dL/unit * Nutritional / Prandial insulin per carb ratio of 1 unit per 6 grams CHO consumed * Please note that the plan above was derived based on current level of insulin resistance and hospital stress. These recommendations are appropriate for inpatient admission only. Plan of care upon discharge will need to be reassessed to avoid potential outpatient hypo/hyperglycemia. Thank you.
[2019-01-01] MEDS: CEFAZOLIN 2000MG 2,000 MG/15 ML SYR IV SCH (16:04)
[2019-01-01] MEDS: FERROUS GLUCONATE 324 MG TAB PO SCH (16:05)
[2019-01-01] MEDS: VALSARTAN 80 MG TAB PO SCH (16:38)
[2019-01-01] MEDS ORDERED: HydrALAZINE HCL 20 MG/ML VIAL IV PRN (16:44)
[2019-01-01] MEDS: ASPIRIN 81 MG ECTAB PO SCH (21:00)
[2019-01-01] MEDS: DOCUSATE SODIUM 100 MG CAP PO SCH (21:00)
[2019-01-01] MEDS: SENNA 8.6 MG TAB PO SCH (21:01)
[2019-01-02] MEDS: CEFAZOLIN 2000MG 2,000 MG/15 ML SYR IV SCH (00:14)
[2019-01-02] MEDS: INSULIN ASPART 100 UNITS/ML 3 ML PEN SC SCH ×6 (00:16→21:19)
[2019-01-02] MEDS: ACETAMINOPHEN 500 MG TAB PO SCH ×3 (05:35→21:18)
[2019-01-02 06:01] LABS: Hematocrit (blood only) 31.5 % (37-47); Hemoglobin 10.7 g/dL (12.0-16.0); Mean Corpuscular Hemoglobin 30.7 pg (25-34); Mean Corpuscular Volume 90.5 fL (80-100); Mean Platelet Volume 10.1 fL (7.4-10.4); Platelet Count 190 K/uL (130-400); RDW Coefficient of Variation 13.1 % (11.5-14.5); Red Blood Count 3.48 M/uL (4.2-5.4); White Blood Count 10.62 K/uL (4.8-10.8)
[2019-01-02 06:34] LABS: BUN Creatinine Ratio 18.7 (10-20); Creatinine Clr Calc Pharmacy 35.1 ml/min; Est GFR (African American) 41.5; Est GFR (Non-African American) 35.8; Potassium 4.2 mmol/L (3.5-5.1)
--- NOTE | 2019-01-02 07:16 | Orthopedic Progress Note ---
Date of Service January 02, 2019 Assessment & Plan (1) Osteoarthritis of right knee: Patient is POD#1 right TKA -Pain management -DVT prophylaxis-ASA 81mg BID, SCDs, TEDs -PT/OT -AM labs- hemoglobin down to 10.4, Acute blood loss anemia likely due to surgical loss vs dilutional affect. Will recheck in AM. -D/C planning-Patient looking to go to [facility] upon discharge. Case management to discuss with patient. Subjective Patient is POD#1 right TKA. Doing well, no pain currently. No chest pain, sob, dizziness. No other complaints. Review of Systems Review of Systems: All systems reviewed & are unremarkable except as noted in HPI & below Physical Exam Physical Exam: Resting in bed comfortably. Dressing c/d/i. Hemovac in place. Serena intact. No calf tenderness. Good dorsiflexion, toes mobile. Distally n/v intact. Constitutional: well developed and well nourished; no acute distress Results & Data Vital Signs (Past 12 Hours) Vital Signs Temp Pulse Resp BP BP Pulse Ox 01/02/19 04:05 36.5 C 58 L 16 127/80 98 01/01/19 22:47 36.5 C 69 16 132/81 94 01/01/19 20:30 36.7 C 86 17 146/83 H 97 Laboratory Results Lab Results 12/19/18 12/19/18 12/19/18 Range/Units 13:36 13:36 13:36 WBC 5.62 (4.8-10.8) K/uL RBC 4.30 (4.2-5.4) M/uL Hgb 13.4 (12.0-16.0) g/dL Hct 39.0 (37-47) % MCV 90.7 (80-100) fL MCH 31.2 (25-34) pg MCHC 34.4 (32-36) g/dL RDW Std Deviation 42.6 (36.4-46.3) fL RDW Coeff of Murray 13.0 (11.5-14.5) % Plt Count 202 (130-400) K/uL MPV 10.5 H (7.4-10.4) fL Immature Gran % (Auto) 0.4 % Neut % (Auto) 64.6 % Lymph % (Auto) 26.3 % [place] % (Auto) 6.2 % Eos % (Auto) 2.3 % Baso % (Auto) 0.2 % Immature Gran # (Auto) 0.02 (0.00-0.02) K/uL Neut # (Auto) 3.63 (1.4-6.5) K/uL Lymph # (Auto) 1.48 (1.2-3.4) K/uL [place] # (Auto) 0.35 (0.11-0.59) K/uL Eos # (Auto) 0.13 (0-0.5) K/uL Baso # (Auto) 0.01 (0-0.2) K/uL PT 10.1 (9.0-12.0) Seconds INR 1.0 (0.9-1.1) APTT 26.0 (21.0-31.0) Seconds PTT Ratio 1.0 Sodium 141 (136-145) mmol/L Potassium 4.2 (3.5-5.1) mmol/L Chloride 107 (98-107) mmol/L Carbon Dioxide 29 (21-32) mmol/L Anion Gap 5.0 (3-11) BUN 25 H (7-18) mg/dl Creatinine 1.31 H (0.6-1.2) mg/dl Est Cr Clr Drug Dosing 39.7 ml/min Est GFR ( Amer) 47.7 Est GFR (Non-Af Amer) 41.1 BUN/Creatinine Ratio 19.2 (10-20) Glucose 190 H (70-99) mg/dl POC Glucose (70-99) Estimat Average Glucose mg/dl Hemoglobin A1c (4.5-5.6) % Calcium 8.8 (8.5-10.1) mg/dl Albumin 3.2 L (3.4-5.0) gm/dl Urine Color Urine Appearance (Clear) Urine pH (4.5-7.5) Ur Specific Fletcher (1.000-1.030) Urine Protein (Negative) Urine Glucose (UA) (Negative) Urine Ketones (Negative) Urine Blood (Negative) Urine Nitrite (Negative) Urine Bilirubin (Negative) Urine Urobilinogen (Negative) Ur Leukocyte Esterase (Negative) Urine WBC (Auto) (0-5) /hpf Urine RBC (Auto) (0-4) /hpf U Hyaline Cast (Auto) (0-5) /lpf U Epithel Cells (Auto) (0-5) /lpf Urine Bacteria (Auto) (Negative) Blood Type Antibody Screen 12/19/18 12/19/18 12/19/18 Range/Units 13:36 13:36 Unknown WBC (4.8-10.8) K/uL RBC (4.2-5.4) M/uL Hgb (12.0-16.0) g/dL Hct (37-47) % MCV (80-100) fL MCH (25-34) pg MCHC (32-36) g/dL RDW Std Deviation (36.4-46.3) fL RDW Coeff of Murray (11.5-14.5) % Plt Count (130-400) K/uL MPV (7.4-10.4) fL Immature Gran % (Auto) % Neut % (Auto) % Lymph % (Auto) % [place] % (Auto) % Eos % (Auto) % Baso % (Auto) % Immature Gran # (Auto) (0.00-0.02) K/uL Neut # (Auto) (1.4-6.5) K/uL Lymph # (Auto) (1.2-3.4) K/uL [place] # (Auto) (0.11-0.59) K/uL Eos # (Auto) (0-0.5) K/uL Baso # (Auto) (0-0.2) K/uL PT (9.0-12.0) Seconds INR (0.9-1.1) APTT (21.0-31.0) Seconds PTT Ratio Sodium (136-145) mmol/L Potassium (3.5-5.1) mmol/L Chloride (98-107) mmol/L Carbon Dioxide (21-32) mmol/L Anion Gap (3-11) BUN (7-18) mg/dl Creatinine (0.6-1.2) mg/dl Est Cr Clr Drug Dosing ml/min Est GFR ( Amer) Est GFR (Non-Af Amer) BUN/Creatinine Ratio (10-20) Glucose (70-99) mg/dl POC Glucose (70-99) Estimat Average Glucose 148 mg/dl Hemoglobin A1c 6.8 H (4.5-5.6) % Calcium (8.5-10.1) mg/dl Albumin (3.4-5.0) gm/dl Urine Color Yellow Urine Appearance Clear (Clear) Urine pH 5.5 (4.5-7.5) Ur Specific Fletcher 1.021 (1.000-1.030) Urine Protein Negative (Negative) Urine Glucose (UA) Negative (Negative) Urine Ketones Negative (Negative) Urine Blood Negative (Negative) Urine Nitrite Negative (Negative) Urine Bilirubin Negative (Negative) Urine Urobilinogen Negative (Negative) Ur Leukocyte Esterase 1+ H (Negative) Urine WBC (Auto) 1-5 (0-5) /hpf Urine RBC (Auto) 0-4 (0-4) /hpf U Hyaline Cast (Auto) 1-5 (0-5) /lpf U Epithel Cells (Auto) >30 H (0-5) /lpf Urine Bacteria (Auto) Negative (Negative) Blood Type A Positive Antibody Screen NEGATIVE 01/01/19 01/01/19 01/01/19 Range/Units 06:13 10:26 11:58 WBC (4.8-10.8) K/uL RBC (4.2-5.4) M/uL Hgb (12.0-16.0) g/dL Hct (37-47) % MCV (80-100) fL MCH (25-34) pg MCHC (32-36) g/dL RDW Std Deviation (36.4-46.3) fL RDW Coeff of Murray (11.5-14.5) % Plt Count (130-400) K/uL MPV (7.4-10.4) fL Immature Gran % (Auto) % Neut % (Auto) % Lymph % (Auto) % [place] % (Auto) % Eos % (Auto) % Baso % (Auto) % Immature Gran # (Auto) (0.00-0.02) K/uL Neut # (Auto) (1.4-6.5) K/uL Lymph # (Auto) (1.2-3.4) K/uL [place] # (Auto) (0.11-0.59) K/uL Eos # (Auto) (0-0.5) K/uL Baso # (Auto) (0-0.2) K/uL PT (9.0-12.0) Seconds INR (0.9-1.1) APTT (21.0-31.0) Seconds PTT Ratio Sodium (136-145) mmol/L Potassium (3.5-5.1) mmol/L Chloride (98-107) mmol/L Carbon Dioxide (21-32) mmol/L Anion Gap (3-11) BUN (7-18) mg/dl Creatinine (0.6-1.2) mg/dl Est Cr Clr Drug Dosing ml/min Est GFR ( Amer) Est GFR (Non-Af Amer) BUN/Creatinine Ratio (10-20) Glucose (70-99) mg/dl POC Glucose 168 H 189 H 211 H (70-99) Estimat Average Glucose mg/dl Hemoglobin A1c (4.5-5.6) % Calcium (8.5-10.1) mg/dl Albumin (3.4-5.0) gm/dl Urine Color Urine Appearance (Clear) Urine pH (4.5-7.5) Ur Specific Fletcher (1.000-1.030) Urine Protein (Negative) Urine Glucose (UA) (Negative) Urine Ketones (Negative) Urine Blood (Negative) Urine Nitrite (Negative) Urine Bilirubin (Negative) Urine Urobilinogen (Negative) Ur Leukocyte Esterase (Negative) Urine WBC (Auto) (0-5) /hpf Urine RBC (Auto) (0-4) /hpf U Hyaline Cast (Auto) (0-5) /lpf U Epithel Cells (Auto) (0-5) /lpf Urine Bacteria (Auto) (Negative) Blood Type Antibody Screen 01/01/19 01/01/19 01/02/19 Range/Units 17:16 20:46 00:13 WBC (4.8-10.8) K/uL RBC (4.2-5.4) M/uL Hgb (12.0-16.0) g/dL Hct (37-47) % MCV (80-100) fL MCH (25-34) pg MCHC (32-36) g/dL RDW Std Deviation (36.4-46.3) fL RDW Coeff of Murray (11.5-14.5) % Plt Count (130-400) K/uL MPV (7.4-10.4) fL Immature Gran % (Auto) % Neut % (Auto) % Lymph % (Auto) % [place] % (Auto) % Eos % (Auto) % Baso % (Auto) % Immature Gran # (Auto) (0.00-0.02) K/uL Neut # (Auto) (1.4-6.5) K/uL Lymph # (Auto) (1.2-3.4) K/uL [place] # (Auto) (0.11-0.59) K/uL Eos # (Auto) (0-0.5) K/uL Baso # (Auto) (0-0.2) K/uL PT (9.0-12.0) Seconds INR (0.9-1.1) APTT (21.0-31.0) Seconds PTT Ratio Sodium (136-145) mmol/L Potassium (3.5-5.1) mmol/L Chloride (98-107) mmol/L Carbon Dioxide (21-32) mmol/L Anion Gap (3-11) BUN (7-18) mg/dl Creatinine (0.6-1.2) mg/dl Est Cr Clr Drug Dosing ml/min Est GFR ( Amer) Est GFR (Non-Af Amer) BUN/Creatinine Ratio (10-20) Glucose (70-99) mg/dl POC Glucose 231 H 262 H 165 H (70-99) Estimat Average Glucose mg/dl Hemoglobin A1c (4.5-5.6) % Calcium (8.5-10.1) mg/dl Albumin (3.4-5.0) gm/dl Urine Color Urine Appearance (Clear) Urine pH (4.5-7.5) Ur Specific Fletcher (1.000-1.030) Urine Protein (Negative) Urine Glucose (UA) (Negative) Urine Ketones (Negative) Urine Blood (Negative) Urine Nitrite (Negative) Urine Bilirubin (Negative) Urine Urobilinogen (Negative) Ur Leukocyte Esterase (Negative) Urine WBC (Auto) (0-5) /hpf Urine RBC (Auto) (0-4) /hpf U Hyaline Cast (Auto) (0-5) /lpf U Epithel Cells (Auto) (0-5) /lpf Urine Bacteria (Auto) (Negative) Blood Type Antibody Screen 01/02/19 01/02/19 01/02/19 Range/Units 04:09 05:31 05:31 WBC 10.62 (4.8-10.8) K/uL RBC 3.48 L (4.2-5.4) M/uL Hgb 10.7 L (12.0-16.0) g/dL Hct 31.5 L (37-47) % MCV 90.5 (80-100) fL MCH 30.7 (25-34) pg MCHC 34.0 (32-36) g/dL RDW Std Deviation 43.0 (36.4-46.3) fL RDW Coeff of Murray 13.1 (11.5-14.5) % Plt Count 190 (130-400) K/uL MPV 10.1 (7.4-10.4) fL Immature Gran % (Auto) % Neut % (Auto) % Lymph % (Auto) % [place] % (Auto) % Eos % (Auto) % Baso % (Auto) % Immature Gran # (Auto) (0.00-0.02) K/uL Neut # (Auto) (1.4-6.5) K/uL Lymph # (Auto) (1.2-3.4) K/uL [place] # (Auto) (0.11-0.59) K/uL Eos # (Auto) (0-0.5) K/uL Baso # (Auto) (0-0.2) K/uL PT (9.0-12.0) Seconds INR (0.9-1.1) APTT (21.0-31.0) Seconds PTT Ratio Sodium 142 (136-145) mmol/L Potassium 4.2 (3.5-5.1) mmol/L Chloride 110 H (98-107) mmol/L Carbon Dioxide 24 (21-32) mmol/L Anion Gap 8.0 (3-11) BUN 27 H (7-18) mg/dl Creatinine 1.46 H (0.6-1.2) mg/dl Est Cr Clr Drug Dosing 35.1 ml/min Est GFR ( Amer) 41.5 Est GFR (Non-Af Amer) 35.8 BUN/Creatinine Ratio 18.7 (10-20) Glucose 145 H (70-99) mg/dl POC Glucose 138 H (70-99) Estimat Average Glucose mg/dl Hemoglobin A1c (4.5-5.6) % Calcium 8.0 L (8.5-10.1) mg/dl Albumin (3.4-5.0) gm/dl Urine Color Urine Appearance (Clear) Urine pH (4.5-7.5) Ur Specific Fletcher (1.000-1.030) Urine Protein (Negative) Urine Glucose (UA) (Negative) Urine Ketones (Negative) Urine Blood (Negative) Urine Nitrite (Negative) Urine Bilirubin (Negative) Urine Urobilinogen (Negative) Ur Leukocyte Esterase (Negative) Urine WBC (Auto) (0-5) /hpf Urine RBC (Auto) (0-4) /hpf U Hyaline Cast (Auto) (0-5) /lpf U Epithel Cells (Auto) (0-5) /lpf Urine Bacteria (Auto) (Negative) Blood Type Antibody Screen (1) Osteoarthritis of right knee Osteoarthritis type: primary Qualified Code(s): M17.11 - Unilateral primary osteoarthritis, right knee
[2019-01-02] MEDS ORDERED: INSULIN GLARGINE SOLOSTAR 100 UNITS/ML 3 ML PEN SC SCH (09:00)
[2019-01-02] MEDS ORDERED: VALSARTAN/HCTZ 80/12.5MG TAB PO SCH (09:00)
[2019-01-02] MEDS ORDERED: INSULIN HUMAN NPH SC SCH (09:00)
[2019-01-02] MEDS: SODIUM CHLORIDE 0.9% 1000ML 1,000 ML IV SCH (09:16)
[2019-01-02] MEDS: INSULIN GLARGINE SOLOSTAR 100 UNITS/ML 3 ML PEN SC SCH ×2 (09:18→18:32)
[2019-01-02] MEDS: FERROUS GLUCONATE 324 MG TAB PO SCH ×2 (09:22→18:34)
[2019-01-02] MEDS: ASPIRIN 81 MG ECTAB PO SCH ×2 (09:22→21:18)
[2019-01-02] MEDS: VALSARTAN 80 MG TAB PO SCH (09:22)
[2019-01-02] MEDS: DOCUSATE SODIUM 100 MG CAP PO SCH ×2 (09:22→21:18)
[2019-01-02] MEDS: hydroCHLOROthiazide 25 MG TAB PO SCH (09:26)
[2019-01-02] MEDS: MULTIVITAMIN TAB PO SCH (09:27)
--- NOTE | 2019-01-02 10:57 | Pharmacy Report ---
Pharmacy Glycemic Short Note 2 - Date of Service January 02, 2019 - Glycemic Short BSG Results (Last 24 hours): 01/01/19 01/01/19 01/01/19 11:58 17:16 20:46 Glucose POC Glucose 211 H 231 H 262 H 01/02/19 01/02/19 01/02/19 00:13 04:09 05:31 Glucose 145 H POC Glucose 165 H 138 H 01/02/19 08:22 Glucose POC Glucose 137 H OUTPATIENT ANTIDIABETIC REGIMEN: * Metformin 850mg PO QAM * Lantus 10 units SQ HS Risk Factors for Insulin Resistance: * Steroids: Dexamethasone 8mg PO preop * Recent Surgery * Diet - Assessment & Plan ASSESSMENT: 01/02 * Ms. Wong received 30 units of basal and most likely 30 units (300 units of Novolog inadvertently documented for lunch) of bolus insulin yesterday * Anticipated effects of dexamethasone to hang on through mid/late today so will continue with tightened Novolog parameters for now. Loosen starting with dinner. * Fasting 137 mg/dL - will provide additional 10 units of Lantus this AM (mercedezwee denise stress of 1 and 2), outpatient dose will be resumed tonight 01/01 * 73yo T2DM female with adequate outpatient glycemic control per recent A1c * Pt is maintained on oral antidiabetic agent + basal insulin as an outpatient * Oral agents are not recommended for inpatient use d/t drug interactions, changing PO intake, and difficulty titrating for acute hyper/hypoglycemia. ADA recommends re-initiating outpatient oral agents 1-2 days prior to discharge if/when appropriate if they were held on admission. * Will hold oral agents for admission and utilize SQ basal bolus insulin regimen which is the recommended regimen for inpatient glycemic control. * Will initiate stress outpatient dosing of Lantus and add corresponding basal insulin parameters * Goal is to maintain post op BSGs <200 mg/dl (ideally less than 150mg/dl) to prevent post-op complications PLAN FOR INPATIENT GLYCEMIC CONTROL: * Continue to hold outpatient oral diabetes medications (consider resuming tomorrow if renal function allows) * Basal insulin * Lantus 10 units SQ x 1 now, then * Lantus 10 units qHS (outpatient dose) * Bolus insulin * NovoLog per scale ACHS or Q6hrs while NPO * Goal Range: Low 110 mg/dL - High 140 mg/dL * Correction Factor: 20 mg/dL/unit; loosen to 25 mg/dL/unit starting w/ dinner * Nutritional / Prandial insulin per carb ratio of 1 unit per 6 grams CHO consumed; loosen to 1 unit per 9 starting w/ dinner PLAN FOR DISCHARGE: * A1c is 6.8% on 12/19/18 * Goal A1c < 7% based on age/comorbidities * A reasonable A1C goal for many non- adults is A1c less than 7% * Continue metformin and Lantus on discharge
[2019-01-02] MEDS: OXYCODONE HCL IR 5 MG TAB (IMMEDIATE RELEASE) PO PRN ×2 (11:10→19:29)
[2019-01-02] MEDS: SENNA 8.6 MG TAB PO SCH (21:18)
[2019-01-03] MEDS: ACETAMINOPHEN 500 MG TAB PO SCH ×3 (05:33→20:53)
[2019-01-03 06:16] LABS: Basophils # (auto) 0.01 K/uL (0-0.2); Basophils % (auto) 0.2 %; Eosinophils % (auto) 1.5 %; Hemoglobin 10.2 g/dL (12.0-16.0); Immature Granulocytes # (auto) 0.01 K/uL (0.00-0.02); Immature Granulocytes % (auto) 0.2 %; Lymphocytes # (auto) 1.44 K/uL (1.2-3.4); Lymphocytes % (auto) 21.7 %; Mean Corpuscular Hemoglobin 31.7 pg (25-34); Mean Corpuscular Hgb Conc 35.2 g/dL (32-36); Mean Corpuscular Volume 90.1 fL (80-100); Mean Platelet Volume 9.7 fL (7.4-10.4); Monocytes # (auto) 0.69 K/uL (0.11-0.59); Monocytes % (auto) 10.4 %; Neutrophils # (auto) 4.39 K/uL (1.4-6.5); Platelet Count 159 K/uL (130-400); RDW Coefficient of Variation 13.2 % (11.5-14.5); RDW Standard Deviation 43.5 fL (36.4-46.3); Red Blood Count 3.22 M/uL (4.2-5.4); White Blood Count 6.64 K/uL (4.8-10.8)
[2019-01-03 06:51] LABS: Calcium 7.8 mg/dl (8.5-10.1); Creatinine Clr Calc Pharmacy 31.2 ml/min; Est GFR (African American) 36.1; Est GFR (Non-African American) 31.1; Potassium 3.8 mmol/L (3.5-5.1)
--- NOTE | 2019-01-03 07:16 | Orthopedic Progress Note ---
Date of Service January 03, 2019 Assessment & Plan (1) Osteoarthritis of right knee: Patient is POD#2 right TKA -Pain management -DVT prophylaxis-ASA 81mg BID, SCDs, TEDs -PT/OT -AM labs- hemoglobin stable at 10.2. Creatinine up to 1.6 from baseline of 1.3 preop, possible JUAN CARLOS. Med consult has already been placed. -D/C planning-Patient looking to go to [facility] upon discharge. If denied will plan on going home with OPPT. Awainting determination. Patient had a syncopal event this morning in the bathroom. Med consult placed. Subjective Patient is POD#2 right TKA. Was doing well. This morning while in the bathroom was washing her face and then had a syncopal event, pulse was in 40s at that time. Currently resting in bed. States she does't feel right, not having any chest pain, sob, dizziness, n/v/d, fevers, or chills. Pain increased today from yesterday in knee. Med consult has been placed. Review of Systems Review of Systems: All systems reviewed & are unremarkable except as noted in HPI & below Physical Exam Physical Exam: Patient is resting in bed currently. REYES is c/d/i. Toes mobile, no calf tenderness. Toes mobile. Distally n/v intact Constitutional: well developed and well nourished; no acute distress Results & Data Vital Signs (Past 12 Hours) Vital Signs Temp Pulse Resp BP Pulse Ox 01/03/19 05:33 52 L 153/79 H 98 01/03/19 05:05 36.9 C 43 L 14 135/46 L 95 01/02/19 23:57 37.0 C 56 L 16 147/81 H 97 Laboratory Results H & H 12/19/18 01/02/19 01/03/19 Range/Units 13:36 05:31 05:56 Hgb 13.4 10.7 L 10.2 L (12.0-16.0) g/dL Hct 39.0 31.5 L 29.0 L (37-47) % Coagulation 12/19/18 Range/Units 13:36 INR 1.0 (0.9-1.1) (1) Osteoarthritis of right knee Osteoarthritis type: primary Qualified Code(s): M17.11 - Unilateral primary osteoarthritis, right knee
[2019-01-03] MEDS: FERROUS GLUCONATE 324 MG TAB PO SCH ×3 (07:42→17:28)
[2019-01-03] MEDS: INSULIN ASPART 100 UNITS/ML 3 ML PEN SC SCH ×4 (07:43→20:55)
[2019-01-03] MEDS: DOCUSATE SODIUM 100 MG CAP PO SCH ×2 (07:47→20:53)
[2019-01-03] MEDS: ASPIRIN 81 MG ECTAB PO SCH ×2 (07:47→20:53)
[2019-01-03] MEDS: MULTIVITAMIN TAB PO SCH (07:48)
[2019-01-03] MEDS: VALSARTAN 80 MG TAB PO SCH (07:48)
[2019-01-03] MEDS: hydroCHLOROthiazide 25 MG TAB PO SCH (07:50)
[2019-01-03] MEDS ORDERED: LACTATED RINGER'S 1,000 ML IV SCH (13:45)
[2019-01-03] MEDS: POLYETHYLENE (MIRALAX) 17 GM PACK PO SCH (13:56)
--- NOTE | 2019-01-03 19:58 | Hospitalist Consultation ---
Date of Consultation January 03, 2019 Assessment & Plan (1) Syncope: Syncopal event with complete loss of consciousness. Prodromal nausea without dizziness. Now back to her normal self and normal examination. Most likely vasovagal syncope with vagal stimulation while washing face with stefany er. In the setting of post TKA, mild dehydration and hydrochlorothiazide use. However bradycardia on exam with one recorded HR of 36. TWI in lateral leads and prior echocardiogram in July with possible apical hypokinesis. Therefore recommend serial troponins and 24 hour monitoring on telemetry to assess for myocardial infarction +/- arrhythmia. (2) Elevated serum creatinine: Suspect mild dehydration in setting of HCTZ use and s/p TKA. 1L LR 125 ml/hr. Repeat Cr in AM. (3) Essential hypertension: Continue valsartan 40 mg PO daily Hold HCTZ Hydralazine 10mg IV if sBP > 180 (4) Type 2 diabetes mellitus: Will defer management to pharmacy glycemic control management already ordered. Follow up with PCP on d/c. (5) Osteoarthritis of right knee: s/p TKA. Management and discharge planning as per orthopedics. If everything negative tomorrow morning she will be medically cleared for discharge. DVT prophylaxis as per primary team History of Present Illness Reason for Consultation: Medical management, syncope Attending Physician: Ye Lucia MD History of Present Illness Patient seen around 8 AM this morning. 73-year-old female admission for elective right total knee arthroplasty by Dr. Lucia on January 01. Earlier this morning around 5:30 AM she lost consciousness while washing her face in the bathroom. She remembers feeling nauseous seconds before the event but does not remember falling. Prior to this she been feeling her normal self. She next remembers waking up in bed not remembering what happened, she denies having any symptoms at that point. BSG 159. HR 43. EKG performed 6:35AM showed sinus bradycardia with HR 59 bpm, TWI appears more prominent than prior EKG in 07/2018 in lateral leads although possible this is due to lead placement. She denies any fever, chest pain, shortness of breath, cough, orthopnea, PND, c laudication or palpitations. She has had no other syncopal events in the last 12 months. Review of prior records show an echocardiogram in July with possible apical hypokinesis during work-up for strokelike symptoms. She denies any history of coronary artery disease. Allergies Allergy/AdvReac Type Severity Reaction Status Date / Time olmesartan Allergy Intermediate coughing/sn Verified 01/01/19 06:27 eezing Home Medications Home Medications Medication Instructions Recorded Confirmed Type multivitamin 1 tab PO DAILY 07/16/18 01/01/19 History valsartan-hydrochlorothiazide 0.5 tab PO QAM 07/16/18 01/01/19 History [Diovan HCT] aspirin 81 mg chewable tablet 81 mg PO QAM 11/27/18 01/01/19 History insulin glargine [Lantus U-100 10 unit SUBCUT HS 12/12/18 01/01/19 History Insulin] metformin [Glucophage] 850 mg PO QAM 12/12/18 01/01/19 History acetaminophen [Tylenol Extra 1,000 mg PO Q8 #60 tab 01/02/19 Rx Strength] aspirin [Ecotrin Low Strength] 81 mg PO BID #60 tab 01/02/19 Rx oxycodone 5 - 10 mg PO .Q4H-6H PRN #30 tab 01/02/19 Rx MDD 6 Patient History Medical History CKD (chronic kidney disease) Cancer ?uterine (s/p hysterectomy, no chemo or radiation) Essential hypertension Hemorrhagic cerebrovascular accident (CVA) Hx (1994)- residual rare right hand weakness Mixed hyperlipidemia Obesity Osteoarthritis Type 2 diabetes mellitus IDDM Surgical History History of colonoscopy History of hand surgery LEFT X2 History of hernia repair History of tonsillectomy History of total abdominal hysterectomy and bilateral salpingo-oophorectomy History of cataract surgery B/L History of knee replacement procedure of left knee Family History Mother Hypertension Diabetes Father , age 69 of a significant accident involving a train. 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 [employer] Feels Safe at Home: Yes Smoking Status: Never smoker Do You Dip or Chew Tobacco: No ; Hx Alcohol Use: No Hx Substance Use: No Review of Systems Review of Systems: All systems reviewed & are unremarkable except as noted in HPI & below Physical Exam Constitutional: well developed, well nourished, + obese and healthy appearing; no acute distress and not in distress Eyes: normal visual belcher by confrontation and PERRL; normal pupil size and no nystagmus ENMT: external ear and nose normal, oropharynx normal Mouth: oral mucous membranes not dry Neck: normal visual inspection and trachea midline Respiratory: normal respiratory effort, lungs clear to auscultation Cardiovascular: RRR, no murmur, no edema Vessels: no JVD Extremities: no edema Gastrointestinal (Abdomen): normal bowel sounds, soft, nontender, no hepatosplenomegaly Musculoskeletal: no cyanosis or clubbing, extremities motor strength 5/5 Skin: no rashes, warm and dry Neurologic: PERRL, EOMI, accommodation nl, no face palsy, no dysarthria normal touch/pain/proprioception, moves all extremities and awake; no focal motor deficits and not confused Speech / Cognition: normal speech Motor/Sensory: no pronator drift Psychiatric: A+Ox3, euthymic affect Results & Data Vital Signs (Past 12 Hours) Vital Signs Temp Pulse Pulse Pulse Resp BP Pulse Ox 01/03/19 19:14 98.1 F 77 17 169/82 H 979 H 01/03/19 16:14 67 01/03/19 15:04 98.1 F 54 L 17 156/87 H 97 01/03/19 12:00 97.9 F 77 20 123/71 97 01/03/19 09:44 98.1 F 61 18 165/91 H 98 PG Care Time/CCT Total # of Minutes Spent Total Time Spent with Patient: Total time spent is greater than 50% in coordination of care (as documented) at patient's floor/unit and/or counseling patient: (1) Osteoarthritis of right knee Osteoarthritis type: primary Qualified Code(s): M17.11 - Unilateral primary osteoarthritis, right knee
[2019-01-03] MEDS: SENNA 8.6 MG TAB PO SCH (20:53)
[2019-01-03] MEDS: INSULIN GLARGINE SOLOSTAR 100 UNITS/ML 3 ML PEN SC SCH (20:55)
[2019-01-04] MEDS: ACETAMINOPHEN 500 MG TAB PO SCH (06:33)
--- NOTE | 2019-01-04 07:31 | Orthopedic Progress Note ---
Date of Service January 04, 2019 Assessment & Plan (1) Osteoarthritis of right knee: Patient is POD#3 right TKA -Pain management -DVT prophylaxis-ASA 81mg BID, SCDs, TEDs -PT/OT -AM labs- hemoglobin stable at 10.2. Creatinine improved to 1.17, however troponin is elevated this morning. -D/C planning-Patient looking to go to [facility] upon discharge however continues to wait for authorization. May want to be discharged home. Will discuss with case management. If medically able, can be discharged later today however troponin elevated this morning. Will await medicine eval. Subjective Patient is POD#3 right TKA. Had syncopal event yesterday. Feeling much better this AM, no complaints. Currently resting in bed doing her exercises, not having any chest pain, sob, dizziness, n/v/d, fevers, or chills. Pain controlled. Medincine is on board. Review of Systems Review of Systems: All systems reviewed & are unremarkable except as noted in HPI & below Physical Exam Physical Exam: Serena c/d/i, dressing to hemovac site intact. No calf tenderness, toes mobile, good DF. N/v status and sensation intact. Constitutional: well developed and well nourished; no acute distress Results & Data Vital Signs (Past 12 Hours) Vital Signs Temp Pulse Resp BP Pulse Ox 01/04/19 07:27 37 C 61 20 164/92 H 96 01/04/19 03:34 36.8 C 65 16 159/90 H 97 01/03/19 23:02 36.7 C 67 16 148/88 H 97 (1) Osteoarthritis of right knee Osteoarthritis type: primary Qualified Code(s): M17.11 - Unilateral primary osteoarthritis, right knee
[2019-01-04 07:32] LABS: BUN Creatinine Ratio 19.9 (10-20); Calcium 8.7 mg/dl (8.5-10.1); Creatinine Clr Calc Pharmacy 43.8 ml/min; Est GFR (African American) 54.3; Est GFR (Non-African American) 46.8; Potassium 4.1 mmol/L (3.5-5.1)
[2019-01-04 07:41] LABS: Troponin I 0.073 ng/ml (0-0.045)
[2019-01-04] MEDS: FERROUS GLUCONATE 324 MG TAB PO SCH (07:51)
[2019-01-04] MEDS: POLYETHYLENE (MIRALAX) 17 GM PACK PO SCH (07:53)
[2019-01-04] MEDS: DOCUSATE SODIUM 100 MG CAP PO SCH (07:53)
[2019-01-04] MEDS: INSULIN ASPART 100 UNITS/ML 3 ML PEN SC SCH ×2 (07:54→12:04)
[2019-01-04] MEDS: ASPIRIN 81 MG ECTAB PO SCH (07:55)
[2019-01-04] MEDS: MULTIVITAMIN TAB PO SCH (07:55)
[2019-01-04] MEDS: VALSARTAN 80 MG TAB PO SCH (08:16)
--- NOTE | 2019-01-06 22:40 | Discharge Summary ---
DISCHARGE DIAGNOSIS: Degenerative joint disease, right knee. SECONDARY DIAGNOSES: Chronic kidney disease, uterine cancer, essential hypertension, cerebrovascular accident in the past, hyperlipidemia, obesity, osteoarthritis, type 2 diabetes mellitus. CONSULTS: None. COMPLICATIONS: None. PROCEDURES: Right total knee arthroplasty performed by Dr. Lucia on 01/01/2019. BRIEF HISTORY: As dictated in the history and physical. HOSPITAL SUMMARY: The patient was admitted on the above-noted date and had the above-noted surgery performed, which she tolerated well. On her first postoperative day, she was doing well and had good pain control. Denied chest pain, shortness of breath or dizziness. No other complaints. She was resting in bed comfortably. Dressings were intact. Hemovac was in place. REYES was intact. No calf tenderness. Good dorsiflexion. Toes were mobile. Neurovascular was intact. Vital signs were stable. She was afebrile. Hemoglobin was 13.4. She was started on physical therapy protocol and continued on DVT prophylaxis and pain management. The patient was hoping to go to [facility] post-discharge. By the second postoperative day, she was doing well, but later that morning as they had gotten up to the bathroom and the patient was washing her face that had a syncopal event, pulse was in the 40s at that time and the patient when checked again was currently resting in bed and states that she did not feel right, not having any chest pain, no shortness of breath or dizziness. No nausea, vomiting or diarrhea. No fevers or chills. Pain had increased from the previous day in the knee. Medical consult had been placed. REYES dressing was clean, dry and intact. Toes were mobile. Calves were nontender. Neurovascular was intact. Latest blood pressure was 153/79. Hemoglobin was around 10.2 and medicine saw the patient shortly thereafter and felt to be most likely a vasovagal syncope with vagal stimulation while washing her face with water. Medicine recommended serial troponins x24 hours and monitored on telemetry to assess for myocardial infarction. By the patient's third postoperative day, she was feeling much better that morning, had no complaints, currently resting in bed, doing her exercises. No chest pain, shortness of breath or dizziness. No fevers or chills. Pain was controlled. Dressing was intact. Calves were soft, nontender. Neurovascular was intact. Plans were to continue her PT and OT. Her labs were remaining stable. It was noted that her troponins were mildly elevated and the plans were to await medicine service input before discharging to home or to [facility]. She was otherwise remaining stable and she was thusly then discharged to home on 01/04/2019. For further review, please see chart. LABORATORY AND X-RAY DATA: As per chart. DISCHARGE INSTRUCTIONS: The patient was discharged home in satisfactory condition on 01/04/2019. Diet: Regular. Activity: Weightbearing as tolerated on the affected extremity. Follow TK instructions and special care instructions as noted. Follow up with Dr. Lucia in 2 weeks ____ provider instructions from medicine service, recommending follow up with PCP regarding recent episode of fainting with also a 3-second episode of paroxysmal SVT and mildly elevated troponins also unlikely to be contributing towards her fall. No change in blood pressure medications and again follow up with PCP post-discharge. DISCHARGE MEDICATIONS: Acetaminophen 1000 mg p.o. q. 8 hours, aspirin 81 mg p.o. b.i.d., oxycodone 5-10 mg p.o. q. 4-6 hours p.r.n. Resume home meds as listed and stop taking previous aspirin dosage.
--- NOTE | 2019-01-16 07:03 | Coding Query ---
CODING QUERY To promote full compliance with coding requirements relating to patient care, provider participation is requested in all cases of physician coder uncertainty. Please assist us with the question(s) below: Coding Question(s): There was documentation of a syncopal episode and elevated troponin with mention of possible FL that was being evaluated. Please specify below, regarding the possible FL. (X ) Possible FL was ruled-out ( ) There was Possible FL Physician's Response(s): Thank you Suzie Garcia Principal Diagnosis: "that condition established after study, to be chiefly responsible for occasioning the admission of the patient to the hospital for care." Co-Existing Principal Diagnosis: "when two or more diagnoses equally meet the criteria for principal diagnosis as determined by the circumstances of admission, diagnostic work up, and/or therapy provided, and the Alphabetic Index, Tabular List, or another coding guideline does not provide sequencing direction, any one of the diagnoses may be sequenced first." "When the physician has documented what appears to be a current diagnosis in the body of the record, but has not included the diagnosis in the final diagnostic statement, the physician should be asked whether the diagnosis should be added." (Source Coding [facility] 2 QTR90. p3-4) RITA
== END 2019-01-04 13:54 | disposition home or self-care (01) | DRG 470 ==
LOC: ASU 05:49 → 3E 10:09 → 2S 01-03 09:30

== ENCOUNTER 2021-12-05 09:29 | Observation (INO) ==
--- NOTE | 2021-12-05 09:54 | Emergency Department Note ---
Impression & Plan Seizure, LOC (loss of consciousness), Elevated troponin ED Provider Note NAME: VALERIE MAURICIO AGE: 75 SEX: F : 1945 ARRIVES VIA: Ambulance INFORMANT: [Patient][nursing] ED PROVIDER(S): [John Cabrera MD] CHIEF COMPLAINT: Seizure HISTORY OF PRESENT ILLNESS: The patient is a 75-year-old female who recently had a head injury and spent some time at [facility]. This morning, she was checking her blood sugar and felt a bit dizzy. She woke up to her daughter screaming that she had a seizure. The patient does not think she even lost consciousness completely. She denies biting her tongue or having any urinary incontinence. She did not have chest pain or shortness of breath. She says she remembers feeling dizzy but thinks it is unlikely that she had a seizure, she has never had a seizure before. The patient has not had cough, congestion. She has been in baseline health. As per the nursing staff, the seizure like activity was described as tonic- clonic and lasting around 2 minutes. The patient's daughter arrived. She describes a 1 to 2-minute seizure-like episode with drooling and eyes rolling back in the head, there was generalized tonic-clonic activity. The patient awoke afterwards and seemed confused for several minutes and then returned to baseline. The patient was amnestic of what had happened today. REVIEW OF SYSTEMS: See HPI for pertinent positives and negatives. A total of ten systems were reviewed and were otherwise negative. PMHx/PSHx: See Below SOCIAL HISTORY: See Below. PHYSICAL EXAM: GENERAL: Patient is in no acute distress. HEENT: There is older contusion to the left face and forehead consistent with her history of recent fall. Mucous membranes are moist. NECK: No stridor, no adenopathy, no meningismus, trachea is midline. LUNGS: Clear to auscultation bilaterally, no wheeze, no rhonchi, breath sounds equal. HEART: Subtle systolic murmur, regular rate and rhythm. ABDOMEN: Soft, nontender, bowel sounds positive, no peritonitis. EXTREMITIES: No cyanosis, mild bilateral pedal edema, full range of motion of all the joints without pain or difficulty, no signs for acute trauma. NEUROLOGIC: Oriented x 3, no acute motor or sensory deficits, no focal weakness. SKIN: No rash, no jaundice, no diaphoresis. DIFFERENTIAL DIAGNOSIS: Infection, dehydration, UTI, dysrhythmia, syncope, seizure, metabolic abnormality, hypo/hyperglycemia, electrolyte disturbance, anemia, hypoxia, cardiac sources, intracerebral event, toxicologic issues, stroke, TIA, as well as other pathologies. EMERGENCY DEPARTMENT COURSE/PROCEDURES: ECG: Indication was seizure. The ECG shows a sinus bradycardia with a rate of 52. There are some inverted T waves noted laterally. There is some LVH present. No ST elevation. No PVCs. The QTc is 418. Compared to an ECG from 03 August 2020, the rate has decreased, there is now some T wave inversion noted in leads V3 through V6. Continuous Cardiac Monitoring: An order was placed for continuous cardiac monitoring. The monitor shows a rate of 57 with sinus bradycardia. MEDICAL DECISION MAKING: There is no leukocytosis or worrisome anemia. There is a normal platelet count. Creatinine is slightly elevated but this is baseline looking back at previous testing. No electrolyte abnormality in need of emergent correction. No concerning liver enzyme elevation. Patient appears to be in a euthyroid state. Prolactin level is elevated consistent with potential seizure activity. ECG showed a sinus bradycardia, no ischemia. Cardiac enzyme testing was slightly elevated. This troponin elevation could be from cardiac injury/strain or demand mismatch. Urinalysis does not show infection. COVID test returned negative. Brain CT showed no acute bleed or mass-effect. CT angio of the head and neck were performed, some basilar artery stenosis was seen. No occlusions. The patient was given IV saline, she is currently resting comfortably. I spoke with neurology, Dr. Tran. Given the circumstances, given all the unknowns, he did recommend a hospital stay, further cardiac and neurologic work- up. I spoke with the patient and her daughter. Hospitalization is warranted, the patient and family understand. Case management has been involved, I did speak with the on-call hospitalist. In short, it is unclear if this was a true seizure or if this was a syncopal seizure-like event. It is unclear if her loss of consciousness was secondary to a cardiac or neurologic issue. 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 [employer] Feels Safe at Home: Yes Assistive Devices: Walker Allergies Allergies Allergy/AdvReac Type Severity Reaction Status Date / Time olmesartan Allergy Intermediate coughing/sn Verified 12/05/21 10:39 eezing Home Meds Home Medications Medication Instructions Recorded Confirmed valsartan 80 1 tab PO QAM 07/16/18 12/05/21 mg-hydrochlorothiazide 12.5 mg tablet (Diovan HCT) insulin glargine 100 unit/mL 30 unit subcut 12/12/18 12/05/21 subcutaneous solution (Lantus U-100 Insulin) apixaban 5 mg tablet (Eliquis) 5 mg PO BID 12/05/21 12/05/21 ciclopirox 8 % topical solution 1 applic topical HS 12/05/21 12/05/21 metformin 850 mg tablet 850 mg PO BID 12/05/21 12/05/21 pravastatin 10 mg tablet 10 mg PO HS 12/05/21 12/05/21 Results & Data (ED) Vital Signs Vital Signs - 24 hr 12/05/21 09:36 12/05/21 09:45 12/05/21 12:01 Temperature 36.9 C 36.8 C Temperature Source Oral Oral Pulse Rate 51 L Pulse Rate [Apical] 57 L 94 H Pulse Rhythm [Apical] Regular Regular Pulse Strength [Apical] Normal Respiratory Rate 14 16 23 Respiratory Effort / Characteristics Non-Labored Spontaneous Non-Labored Spontaneous Spontaneous Respiratory Depth Normal Normal Respiratory Pattern Regular Regular Regular Blood Pressure 164/84 H Blood Pressure [Right Arm] 164/84 H 122/81 Blood Pressure Mean 110 Blood Pressure Mean [Right Arm] 110 94 Blood Pressure Position Lying Blood Pressure Position [Right Arm] Lying Semi-fowlers Pulse Oximetry 99 99 90 Oxygen Delivery Method Room Air Room Air Room Air Sepsis Recent Fever Within 48 Hours No Sepsis New/Unexplained Change in Mental Status No Sepsis Action Taken by Nursing No Action Required Home Medications Current Medication List: was personally reviewed by me Laboratory Data Attestation: I reviewed the patient's lab results. Result diagrams: 12/05/21 09:40 12/05/21 09:40 Lab Results 12/05/21 12/05/21 12/05/21 Range/Units 09:40 09:40 09:40 WBC 4.17 L (4.8-10.8) K/ul RBC 3.69 L (3.93-5.22) M/uL Hgb 11.4 L (12.0-16.0) g/dl Hct 34.4 (34.1-44.9) % MCV 93.2 (80.0-100.0) fL MCH 30.9 (25.0-34.0) pg MCHC 33.1 (32.0-36.0) g/dL RDW Std Deviation 46.9 H (36.4-46.3) fL RDW Coeff of Murray 13.9 (11.5-14.5) % Plt Count 196 (130-400) K/uL MPV 10.5 (9.4-12.3) fL Immature Gran % (Auto) 0.2 % Neut % (Auto) 54.6 % Lymph % (Auto) 28.8 % [place] % (Auto) 10.6 % Eos % (Auto) 4.6 % Baso % (Auto) 1.2 % Neut # (Auto) 2.28 (1.4-6.5) K/uL Lymph # (Auto) 1.20 (1.2-3.4) K/uL [place] # (Auto) 0.44 (0.24-0.82) K/uL Eos # (Auto) 0.19 (0-0.50) K/uL Baso # (Auto) 0.05 (0-0.2) K/uL Immature Gran # (Auto) 0.01 (0.00-0.02) K/uL Sodium 139 (136-145) mmol/L Potassium 4.4 (3.5-5.1) mmol/L Chloride 107 (98-107) mmol/L Carbon Dioxide 24 (21-32) mmol/L Anion Gap 8 (3-11) BUN 22 (6-23) mg/dl Creatinine 1.51 H (0.6-1.2) mg/dl Est Cr Clr Drug Dosing 34.1 ml/min Est GFR ( Amer) 39.3 ml/min Est GFR (Non-Af Amer) 33.9 ml/min BUN/Creatinine Ratio 14.6 (10-20) Glucose 168 H (70-99(Fasting)) mg/dl Calcium 8.7 (8.5-10.1) mg/dl Magnesium 1.8 (1.7-2.4) mg/dl Total Bilirubin 1.0 (0.2-1.0) mg/dl AST 10 L (13-39) U/L ALT 9 (7-52) U/L Alkaline Phosphatase 51 (34-104) U/L Troponin I High Sens 33.2 H (0-14) pg/ml Total Protein 6.2 (6.0-8.3) gm/dl Albumin 3.5 (3.4-5.0) gm/dl Globulin 2.7 (2.5-4.0) gm/dl Albumin/Globulin Ratio 1.3 (0.9-2) TSH 3.855 (0.300-4.500) uIu/ml Prolactin ng/ml Urine Color Urine Appearance (Clear) Urine pH (4.5-7.5) Ur Specific [place] (1.000-1.030) Urine Protein (Negative) Urine Glucose (UA) (Negative) Urine Ketones (Negative) Urine Blood (Negative) Urine Nitrite (Negative) Urine Bilirubin (Negative) Urine Urobilinogen (Negative) Ur Leukocyte Esterase (Negative) Urine WBC (Auto) (0-5) /hpf Urine RBC (Auto) (0-4) /hpf U Hyaline Cast (Auto) (0-5) /lpf U Epithel Cells (Auto) (0-5) /lpf Urine Bacteria (Auto) (Negative) SARS-CoV-2, RNA, NAAT (NEGATIVE) 12/05/21 12/05/21 12/05/21 Range/Units 09:40 11:07 12:00 WBC (4.8-10.8) K/ul RBC (3.93-5.22) M/uL Hgb (12.0-16.0) g/dl Hct (34.1-44.9) % MCV (80.0-100.0) fL MCH (25.0-34.0) pg MCHC (32.0-36.0) g/dL RDW Std Deviation (36.4-46.3) fL RDW Coeff of Murray (11.5-14.5) % Plt Count (130-400) K/uL MPV (9.4-12.3) fL Immature Gran % (Auto) % Neut % (Auto) % Lymph % (Auto) % [place] % (Auto) % Eos % (Auto) % Baso % (Auto) % Neut # (Auto) (1.4-6.5) K/uL Lymph # (Auto) (1.2-3.4) K/uL [place] # (Auto) (0.24-0.82) K/uL Eos # (Auto) (0-0.50) K/uL Baso # (Auto) (0-0.2) K/uL Immature Gran # (Auto) (0.00-0.02) K/uL Sodium (136-145) mmol/L Potassium (3.5-5.1) mmol/L Chloride (98-107) mmol/L Carbon Dioxide (21-32) mmol/L Anion Gap (3-11) BUN (6-23) mg/dl Creatinine (0.6-1.2) mg/dl Est Cr Clr Drug Dosing ml/min Est GFR ( Amer) ml/min Est GFR (Non-Af Amer) ml/min BUN/Creatinine Ratio (10-20) Glucose (70-99(Fasting)) mg/dl Calcium (8.5-10.1) mg/dl Magnesium (1.7-2.4) mg/dl Total Bilirubin (0.2-1.0) mg/dl AST (13-39) U/L ALT (7-52) U/L Alkaline Phosphatase (34-104) U/L Troponin I High Sens 32.3 H (0-14) pg/ml Total Protein (6.0-8.3) gm/dl Albumin (3.4-5.0) gm/dl Globulin (2.5-4.0) gm/dl Albumin/Globulin Ratio (0.9-2) TSH (0.300-4.500) uIu/ml Prolactin 42.66 ng/ml Urine Color Urine Appearance (Clear) Urine pH (4.5-7.5) Ur Specific [place] (1.000-1.030) Urine Protein (Negative) Urine Glucose (UA) (Negative) Urine Ketones (Negative) Urine Blood (Negative) Urine Nitrite (Negative) Urine Bilirubin (Negative) Urine Urobilinogen (Negative) Ur Leukocyte Esterase (Negative) Urine WBC (Auto) (0-5) /hpf Urine RBC (Auto) (0-4) /hpf U Hyaline Cast (Auto) (0-5) /lpf U Epithel Cells (Auto) (0-5) /lpf Urine Bacteria (Auto) (Negative) SARS-CoV-2, RNA, NAAT NEGATIVE (NEGATIVE) 12/05/21 Range/Units 12:34 WBC (4.8-10.8) K/ul RBC (3.93-5.22) M/uL Hgb (12.0-16.0) g/dl Hct (34.1-44.9) % MCV (80.0-100.0) fL MCH (25.0-34.0) pg MCHC (32.0-36.0) g/dL RDW Std Deviation (36.4-46.3) fL RDW Coeff of Murray (11.5-14.5) % Plt Count (130-400) K/uL MPV (9.4-12.3) fL Immature Gran % (Auto) % Neut % (Auto) % Lymph % (Auto) % [place] % (Auto) % Eos % (Auto) % Baso % (Auto) % Neut # (Auto) (1.4-6.5) K/uL Lymph # (Auto) (1.2-3.4) K/uL [place] # (Auto) (0.24-0.82) K/uL Eos # (Auto) (0-0.50) K/uL Baso # (Auto) (0-0.2) K/uL Immature Gran # (Auto) (0.00-0.02) K/uL Sodium (136-145) mmol/L Potassium (3.5-5.1) mmol/L Chloride (98-107) mmol/L Carbon Dioxide (21-32) mmol/L Anion Gap (3-11) BUN (6-23) mg/dl Creatinine (0.6-1.2) mg/dl Est Cr Clr Drug Dosing ml/min Est GFR ( Amer) ml/min Est GFR (Non-Af Amer) ml/min BUN/Creatinine Ratio (10-20) Glucose (70-99(Fasting)) mg/dl Calcium (8.5-10.1) mg/dl Magnesium (1.7-2.4) mg/dl Total Bilirubin (0.2-1.0) mg/dl AST (13-39) U/L ALT (7-52) U/L Alkaline Phosphatase (34-104) U/L Troponin I High Sens (0-14) pg/ml Total Protein (6.0-8.3) gm/dl Albumin (3.4-5.0) gm/dl Globulin (2.5-4.0) gm/dl Albumin/Globulin Ratio (0.9-2) TSH (0.300-4.500) uIu/ml Prolactin ng/ml Urine Color Yellow Urine Appearance Clear (Clear) Urine pH 7.0 (4.5-7.5) Ur Specific [place] 1.008 (1.000-1.030) Urine Protein Negative (Negative) Urine Glucose (UA) Negative (Negative) Urine Ketones Negative (Negative) Urine Blood Trace H (Negative) Urine Nitrite Negative (Negative) Urine Bilirubin Negative (Negative) Urine Urobilinogen Negative (Negative) Ur Leukocyte Esterase Negative (Negative) Urine WBC (Auto) 1-5 (0-5) /hpf Urine RBC (Auto) 0-4 (0-4) /hpf U Hyaline Cast (Auto) 0 (0-5) /lpf U Epithel Cells (Auto) 20-30 H (0-5) /lpf Urine Bacteria (Auto) Negative (Negative) SARS-CoV-2, RNA, NAAT (NEGATIVE) Administered Medications Discontinued Medications Sodium Chloride (Nss) 500 mls @ 999 mls/hr IV .Q31M DAHIANA Stop: 12/05/21 10:30 Last Infusion: 12/05/21 13:19 Dose: 0 mls/hr Documented By: Admin: 12/05/21 12:02 Dose: 999 mls/hr Documented By: SHENG Ioversol (Optiray 300 500ml) 115 ml IV ONCE ONE Stop: 12/05/21 12:45 Last Admin: 12/05/21 12:47 Dose: 115 ml Documented By: [facility] Imaging Data Radiologist's Impression: Head CT 12/05/21 09:47 CT head/brain wo con CLINICAL HISTORY: fall, poss seizure Technique: Contiguous axial CT images of the head were acquired from the base of the skull to the vertex without intravenous contrast administration. Images were viewed in brain, subdural and bone windows. Automated dose lowering techniques and/or adjustment according to patient size were utilized for this exam. Comparison: Comparison is made to CT head 07/16/2018 and MRI brain 07/16/2018 Findings: The ventricles, basal cisterns, and cerebral sulci are normal. There is no acute intracranial hemorrhage or evidence of acute territorial infarction. Neither mass effect, shift of the midline structures, nor abnormal extra-axial fluid collections are shown. A few white matter hypodensities may represent encephalomalacia. Focal encephalomalacia about the left insula is unchanged. Imaged portions of the paranasal sinuses and mastoid air cells are clear. The orbits appear normal. There are no acute fractures of the calvaria or scalp swelling. Impression: No acute intracranial hemorrhage, no evidence of acute territorial infarction or other acute intracranial disease process. Stable findings of prior infarcts and small vessel ischemic change. ACT 112: Negative or not required by law. Electronically signed by: Moisés Tobias M.D. 12/05/2021 10:36 AM Head CTA 12/05/21 11:38 CT angio head w con CLINICAL HISTORY: seizure TECHNIQUE: CT angiography of the head was performed following intravenous administration of iodinated contrast. Coronal and sagittal MIPS were obtained from the axial data set and were submitted for review. Automated dose lowering techniques and/or adjustment according to patient size were utilized for this examination. All measurements were calculated based on NASCET criteria. Comparison: Comparison is made to CT neck 12/05/[address] head 12/05/2021 FINDINGS: CTA Head: The anterior and posterior cerebral circulations are patent. No aneurysm, dissection, or AVN is seen. Extensive atherosclerotic disease is seen. There is hemodynamically significant stenosis of the basilar artery just prior to the origin of the posterior cerebral arteries. There is origin of the left posterior cerebral artery. There is prominent atherosclerosis of the supraclinoid segment of the right internal carotid artery which however is likely not hemodynamically significant. 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 No jim occlusion or significant aneurysm is seen. ACT 112: Negative or not required by law. Electronically signed by: Moisés Tobias M.D. 12/05/2021 1:09 PM Neck CTA 12/05/21 11:38 NECK CTA HISTORY: seizure, stroke history TECHNIQUE: Multiaxial CT images of the neck were performed following the intravenous administration of contrast to evaluate the major cervical vessels. M aximum intensity projection images were also obtained. All measurements were calculated based on NASCET criteria. A dose lowering technique was utilized adhering to the principles of ALARA. COMPARISON STUDY: None. FINDINGS: The aortic arch and proximal great vessels are widely patent. There is no significant stenosis, occlusion, or dissection identified within the bilateral common carotid, internal carotid, or cervical vertebral arteries. Mild narrowing within the distal intracranial vertebral arteries due to the calcified plaque. There is also focal moderate to severe narrowing within the mid basilar artery. Mild calcified plaque within the carotid bifurcations. IMPRESSION: 1. No significant stenosis, occlusion, or dissection identified within the common or internal carotid arteries. 2. Focal moderate to severe narrowing within the mid basilar artery. 3. Mild narrowing within the distal intracranial vertebral arteries due to the calcified plaque. ACT 112: Negative or not required by law. Electronically signed by: Dao Madera M.D. 12/05/2021 1:14 PM Discharge Plan Visit Data Chief Complaint: Seizure ED Provider: John Cabrera Discharge Problem: Seizure, LOC (loss of consciousness), Elevated troponin Patient Disposition: Admitted As Inpatient Condition: Good Forms Stand Alone Forms: My [facility] Prescriptions Prescriptions: No Action valsartan-hydrochlorothiazide [Diovan HCT] 80-12.5 mg tablet 1 tab PO QAM insulin glargine [Lantus U-100 Insulin] 100 unit/mL Solution 30 unit SUBCUT HS metformin 850 mg tablet 850 mg PO BID ciclopirox 8 % solution 1 applic TOPICAL HS pravastatin 10 mg tablet 10 mg PO HS Eliquis 5 mg tablet 5 mg PO BID Referrals Referrals: Nora Sheikh CRNP [Primary Care Provider] -
[2021-12-05] MEDS ORDERED: SODIUM CHLORIDE 0.9% 500 ML IV SCH (10:00)
[2021-12-05 10:02] LABS: Basophils # (auto) 0.05 K/uL (0-0.2); Basophils % (auto) 1.2 %; Eosinophils # (auto) 0.19 K/uL (0-0.50); Eosinophils % (auto) 4.6 %; Hematocrit (blood only) 34.4 % (34.1-44.9); Hemoglobin 11.4 g/dl (12.0-16.0); Immature Granulocytes # (auto) 0.01 K/uL (0.00-0.02); Immature Granulocytes % (auto) 0.2 %; Lymphocytes % (auto) 28.8 %; Mean Corpuscular Hemoglobin 30.9 pg (25.0-34.0); Mean Corpuscular Hgb Conc 33.1 g/dL (32.0-36.0); Mean Corpuscular Volume 93.2 fL (80.0-100.0); Mean Platelet Volume 10.5 fL (9.4-12.3); Monocytes # (auto) 0.44 K/uL (0.24-0.82); Monocytes % (auto) 10.6 %; Neutrophils # (auto) 2.28 K/uL (1.4-6.5); Neutrophils % (auto) 54.6 %; Platelet Count 196 K/uL (130-400); RDW Coefficient of Variation 13.9 % (11.5-14.5); RDW Standard Deviation 46.9 fL (36.4-46.3); Red Blood Count 3.69 M/uL (3.93-5.22); White Blood Count 4.17 K/ul (4.8-10.8)
[2021-12-05 10:20] LABS: Albumin Globulin Ratio 1.3 (0.9-2); Albumin Level 3.5 gm/dl (3.4-5.0); BUN Creatinine Ratio 14.6 (10-20); Calcium 8.7 mg/dl (8.5-10.1); Creatinine Clr Calc Pharmacy 34.1 ml/min; Est GFR (African American) 39.3 ml/min; Est GFR (Non-African American) 33.9 ml/min; Globulin 2.7 gm/dl (2.5-4.0); Magnesium 1.8 mg/dl (1.7-2.4); Potassium 4.4 mmol/L (3.5-5.1); Total Protein 6.2 gm/dl (6.0-8.3)
[2021-12-05 10:23] LABS: Troponin I High Sensitivity 33.2 pg/ml (0-14)
--- NOTE | 2021-12-05 10:38 | CT Scan Report ---
CT head/brain wo con CLINICAL HISTORY: fall, poss seizure Technique: Contiguous axial CT images of the head were acquired from the base of the skull to the guerline kate without intravenous contrast administration. Images were viewed in brain, subdural and bone [facility] . Automated dose lowering techniques and/or adjustment according to patient size were utilized for this exam. Comparison: Comparison is made to CT head 07/16/2018 and MRI brain 07/16/2018 Findings: The ventricles, basal cisterns, and cerebral sulci are normal. There is no acute intracranial hemorrh age or evidence of acute territorial infarction. Neither mass effect, shift of the midline structures , nor abnormal extra-axial fluid collections are shown. A few white matter hypodensities may represe nt encephalomalacia. Focal encephalomalacia about the left insula is unchanged. Imaged portions of the paranasal sinuses and mastoid air cells are clear. The orbits appear normal. There are no acute fractures of the calvaria or scalp swelling. Impression: No acute intracranial hemorrhage, no evidence of acute territorial infarction or other acute intracra nial disease process. Stable findings of prior infarcts and small vessel ischemic change. ACT 112: Negative or not required by law. Electronically signed by: Moisés Tobias M.D. 12/05/2021 10:36 AM
--- NOTE | 2021-12-05 11:27 | History & Physical Report ---
Date of Service December 05, 2021 Assessment & Plan (1) Syncope: Plan: -Admit to med/tele -Currently afebrile, hemodynamically stable, and stable on RA -History from daughter and granddaughter from syncopal episode today sounds like possible seizure, she has multiple risk factors including previous ischemic and hemorrhagic strokes -Obtaining STAT CT Angio of the head and neck, MRI of the brain with seizure protocol, and EEG for further assessment -Seizure precautions ordered -Monitor on tele, will order TTE, will repeat another troponin and EKG in 3 hours to ensure troponin has plateaued or trending down -Need to confirm why patient is on Eliquis, she and her family say it's for sever stenosis in the brain, will hold anticoagulation until CT angio's are done to rule out possible bleeding -Requesting records from [facility] for more detailed history and medication review (2) Chronic cerebral ischemia: Plan: -Continue SHOVELER pravastatin (3) Type 2 diabetes mellitus: Plan: -Hold SHOVELER lantus and metformin for now -Start with q6h accu checks while NPO -Start with correction factor of 20 and carb ration of 8 (4) Essential hypertension: Plan: -Will hold SHOVELER Valsartan-hydrochlorothiazide for now as she's hemodynamically stable and had syncopal episode, restart as needed (5) Mixed hyperlipidemia: Plan: -See chronic cerebral ischemia Plan The patient was seen with and discussed with Dr. Ruiz at the time of admission History of Present Illness Chief Complaint: Seizure-Like activity Primary Care Provider: Nora Syed is a 75 year old female with a PMH significant for recent syncopal episode and fall, previous hemorrhagic stroke (1994), CKD, DM II, HTN, Uterine cancer S/P hysterectomy and chemotherapy, who presented to the [facility] ED on 12/05/21 with a chief complaint of seizure-like activity. In the ED the patient was found to be afebrile, hemodynamically stable, and stable on room air. CT of the head was not read as having acute changes but my read shows a circular irregularity in the right ventricle that was not seen on her MRI of the brain in 2019. Prolactin was noted to be elevated at 42.66, and TSH was elevated at 33.2. We were asked to admit the patient to continue evaluation of the etiology of her syncopal events and possible seizure-like activity. Getting ready to check blood sugar this morning, then got shakey then had a shaking unresponsive episode ~1 minute. Coming out of it was unresponsive, then very confused with no memory of what happened. Had garbled speech after, was trying to talk but couldn't get words out just prior to the seizure. some dizziness right before, no preceding chest pain/chest pressure. She reports she often feels lightheaded which sometimes improves with sitting. Denies orthostasis when standing, gets intermittent lightheaded without positional change. Garbled speech, then seized right after. +bowel incontience during episode. +increased fatigue in the previous few weeks. No fevers, chills but is chilly in the room. 'Cold all the time, wears a sweater in 80 degree weather' Denies headache, neck pain. 'I have no pain at all' Daughter caught her while having the seizure, did not fall or hit the ground No chest pain, chest pressure, dififculty breathing, nausea, vomiting, dysuria, hematuria, BRBPR/melena. At [facility] 2-3 weeks ago was noted to have a UTI at that time and was treated with Keflex for a few days. She presented to [facility] after she lost conciousness and fell down the stairs. Unwitnessed fall. Sustained contusion to L face. Still on eliquis, per family was placed on blood thinner due a 'blockage in her heart, and narrowing in her brain.' Takes a baby aspirin for years for strokes, no hx of DAPT. Brain bleed 1994. Was told to start eliquis due to severity of narrowing in her brain. Medical History: Reviewed Medications: Reviewed. Has not taken medications today. Surgical History: Reviewed Allergies: Reviewed Social History: Code Status: Surrogate DM would be Judy [phone], backup would be granddaughter [phone]. DNR/DNI. Allergies Allergy/AdvReac Type Severity Reaction Status Date / Time olmesartan Allergy Intermediate coughing/sn Verified 12/05/21 10:39 eezing Home Medications Medication Instructions Recorded Confirmed Type valsartan 80 1 tab PO QAM 07/16/18 12/05/21 History mg-hydrochlorothiazide 12.5 mg tablet (Diovan HCT) insulin glargine 100 unit/mL 30 unit subcut HS 12/12/18 12/05/21 History subcutaneous solution (Lantus U-100 Insulin) apixaban 5 mg tablet (Eliquis) 5 mg PO BID 12/05/21 12/05/21 History ciclopirox 8 % topical solution 1 applic topical HS 12/05/21 12/05/21 History metformin 850 mg tablet 850 mg PO BID 12/05/21 12/05/21 History pravastatin 10 mg tablet 10 mg PO HS 12/05/21 12/05/21 History Past Med/Surg History Medical History Cancer ?uterine (s/p hysterectomy, no chemo or radiation) CKD (chronic kidney disease) Essential hypertension 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 [employer] Feels Safe at Home: Yes Assistive Devices: Walker Review of Systems Review of Systems: Denies current fever, chills, headache, changes in vision, hearing, taste, and smell, chest pain, SOB, cough, abdominal pain, nausea, vomiting, diarrhea, hematemesis, melena, dysuria, hematuria Physical Exam Physical Exam: Physical Exam: General: In no acute distress, stated age, chronically ill-appearing HEENT: Normocephalic, patient with bruising to the left cheek and left temporal scalp, no scleral icterus, pupils around round, symmetrical, and reactive to light, moist mucus membranes, trachea midline, no thyromegaly Chest/Pulm: No respiratory distress, symmetrical chest expansion, clear breath sounds throughout Cardiac: RRR, no murmurs noted Abdomen: Negative for ascites and bruising, normoactive bowel sounds, soft, non-tender to palpation throughout Musculoskeletal: Symmetrical and without other signs of acute trauma, upper and lower extremities with full ROM, no atrophy, spasticity, or flaccidity Neuro: Alert and oriented to person, place, month, year, and president, no focal defects, CN II-XII tested and intact, finger to nose test negative, no tremors noted Psych: No acute distress, calm and cooperative during the exam Results & Data Results & Data ([facility]) Vital Signs (Past 12 Hours) Vital Signs Temp Pulse Pulse Resp BP BP Pulse Ox 12/05/21 09:45 36.8 C 57 L 16 164/84 H 99 12/05/21 09:36 36.9 C 51 L 14 164/84 H 99 O2 Del Method 12/05/21 09:45 Room Air 12/05/21 09:36 Room Air Laboratory Results Abnormal lab results 12/05/21 12/05/21 Range/Units 09:40 09:40 WBC 4.17 L (4.8-10.8) K/ul RBC 3.69 L (3.93-5.22) M/uL Hgb 11.4 L (12.0-16.0) g/dl RDW Std Deviation 46.9 H (36.4-46.3) fL Creatinine 1.51 H (0.6-1.2) mg/dl Glucose 168 H (70-99(Fasting)) mg/dl AST 10 L (13-39) U/L Troponin I High Sens 33.2 H (0-14) pg/ml Diagnostic Findings Head CT 12/05/21 09:47 CT head/brain wo con CLINICAL HISTORY: fall, poss seizure Technique: Contiguous axial CT images of the head were acquired from the base of the skull to the vertex without intravenous contrast administration. Images were viewed in brain, subdural and bone windows. Automated dose lowering techniques and/or adjustment according to patient size were utilized for this exam. Comparison: Comparison is made to CT head 07/16/2018 and MRI brain 07/16/2018 Findings: The ventricles, basal cisterns, and cerebral sulci are normal. There is no acute intracranial hemorrhage or evidence of acute territorial infarction. Neither mass effect, shift of the midline structures, nor abnormal extra-axial fluid collections are shown. A few white matter hypodensities may represent encephalomalacia. Focal encephalomalacia about the left insula is unchanged. Imaged portions of the paranasal sinuses and mastoid air cells are clear. The orbits appear normal. There are no acute fractures of the calvaria or scalp swelling. Impression: No acute intracranial hemorrhage, no evidence of acute territorial infarction or other acute intracranial disease process. Stable findings of prior infarcts and small vessel ischemic change. ACT 112: Negative or not required by law. Electronically signed by: Moisés Tobias M.D. 12/05/2021 10:36 AM ECG Additional Comments: Poor data quality, interpretation may be adversely affected Sinus bradycardia Left ventricular hypertrophy with repolarization abnormality Abnormal ECG When compared with ECG of 03-AUG-2020 16:33, Vent. rate has decreased BY 39 BPM Confirmed by Amilcar Diamond ([id number]) on 12/05/2021 11:49:56 AM 25mm/s10mm/[id number] 241CID: [id number] by: REFERRED SELF Confirmed By: Amilcar Diamond Code Status & VTE Plan Code Status No Code/DNR/DNI VTE Prophylaxis Plan VTE Prophylaxis will be ordered: Yes Supervising Physician Co-Signing Physician Notes Patient seen and examined, chart reviewed, case discussed with Albert Graf PA-C and I agree with the assessment and plan as above except as otherwise noted Labs and images reviewed Yahaira 75-year-old female with past medical history of strokelike symptoms, total abdominal hysterectomy, type 2 diabetes, hypertension, head trauma, diabetes who felt dizzy this morning and was found by her daughter who thought she had a seizure. Patient does not think she lost consciousness. Remembers being dizzy, denies past seizure. Patient's daughter describes 1 to 2-minute seizure-like episode with drooling and eyes rolling back, generalized tonic-clonic activity with patient awaking afterwards and being confused. Expresses patient is unaware of this 1 to 2- minute episode Per ED: Talked to Marc. ?Cards vs neuro. Recommended admit for both. Second even in the last month. Was at [facility] for a fall, ?syncopal vs fall. Bruising L face from prior fall. Describes is as passing out first, not after falling. ?Syncope. No intervention at [facility]. 'Bleeding around the brain but no intervention.' Wanted a cardiac cath for risk stratification, refused cath because insurance is through [facility] and wanted to followup here. Sitting in chair, and had a dizzy feeling. Last thing she remembers before EMS arrived. Per daughter eyes rolled back, tonic-clonic activity for 1-2 minutes. No tongue biting. Confusion for several minutes, then argued about going to the hospital. Trop mild elevation. Seen in room, patient describes to hear blood sugar being frustrated using her machine and then remembers EMS. Daughter describes 1-2 minute tonic clonic activity as above. At bedside patient is nondistressed, wi th no focal neurologic deficits, lungs are clear, breathing is unlabored, heart rate is regular without murmurs. - Last echo 2019: 50-55%, ?apica hypokinesis, mi con LVH. T1DD. EKG: Sinus bradycardia, lateral T wave inversions. No territorial ischemic changes Suspected seizure, 2x episodes of syncope vs seizure 1 to 2 minutes, tonic-clonic activity, with patient amnesia of event per daughter Neuro consulted. Recommended continuing observation and syncope versus seizure eval, but deferring antiepileptic/Keppra for now. No leukocytosis on admission Normal sodium, normal potassium Creatinine baseline approximately 1.21.64, on admit 1.54 BSG on admit 168 Magnesium 1.8 No transaminitis/elevated alk phos/hyperbilirubinemia Troponin pending 33.2, repeat pending and trended Prolactin 42, TSH normal CThead: No acute intracranial hemorrhage, no acute processes. Stable prior infarcts, small vessel changes - CTA-H/N pending MRI seizure protocol pending -MRI 2018 reviewed. Multiple old infarcts, including left periventricular matter. - Continue tele - By reprot pt anticoagulated for intracranial stenosis although pt a poor historian and records pending. [facility] [place] records requested. Pending CTA followup, DOAC last taken last night. Pending CTA and reconcilation prior to resuming anticoagulation Hypertension: Continue Diovan, creatinine at baseline CKD: BMP daily, renally adjust medications, appears at/near baseline on admit Type II DM: On Lantus 30 nightly, metformin SHOVELER. Converted to basal bolus. Hyperlipidemia: Statin PG Care Time/CCT Total # of Minutes Spent Total Time Spent with Patient: Total time spent is greater than 50% in coordination of care (as documented) at patient's floor/unit and/or counseling patient: Coding [place] [address] Initial Inpt Care Lvl 1 Patient Type Established History Detailed Exam Detailed Medical Decision Making Moderate Complexity Diagnoses Syncope R55 Chronic cerebral ischemia I67.82 Type 2 diabetes mellitus E11.9 Essential hypertension I10 Mixed hyperlipidemia E78.2
--- NOTE | 2021-12-05 11:50 | Electrocardiogram Report ---
Test Reason : Blood Pressure : / mmHG Vent. Rate : 052 BPM Atrial Rate : 052 BPM P-R Int : 146 ms QRS Dur : 088 ms QT Int : 450 ms P-R-T Axes : 005 -23 110 degrees QTc Int : 418 ms Poor data quality, interpretation may be adversely affected Sinus bradycardia Left ventricular hypertrophy with repolarization abnormality Abnormal ECG When compared with ECG of 03-AUG-2020 16:33, Vent. rate has decreased BY 39 BPM Confirmed by Amilcar Diamond ([id number]) on 12/05/2021 11:49:56 AM Referred By: REFERRED SELF Confirmed By:Amilcar Diamond
[2021-12-05] MEDS ORDERED: DEXTROSE 50% 50 ML SYRINGE IV PRN (12:12)
[2021-12-05] MEDS ORDERED: GLUCOSE 10 TAB/TUBE PO PRN (12:12)
[2021-12-05] MEDS ORDERED: CARBOHYDRATES FOR HYPOGLYCEMIA PO PRN (12:12)
[2021-12-05] MEDS ORDERED: ACETAMINOPHEN 325 MG TAB PO PRN (12:12)
[2021-12-05] MEDS ORDERED: GLUCOSE 40% GEL 15 GM TUBE PO PRN (12:12)
[2021-12-05] MEDS ORDERED: GLUCAGON FOR INJ 1 MG VIAL SQ PRN (12:12)
[2021-12-05] MEDS ORDERED: OPTIRAY 300 500mL IV ONE (12:44)
[2021-12-05 13:04] LABS: Appearance Urine Clear (Clear); Bacteria Urine Automated Negative (Negative); Bilirubin Urine Negative (Negative); Blood Urine Trace (Negative); Cast Urine Automated 0 /lpf (0-5); Color Urine Yellow; Epithelial Cell Urine Auto 20-30 /lpf (0-5); Glucose Urine UA Negative (Negative); Ketones Urine Negative (Negative); Leukocyte Esterase Urine Negative (Negative); Nitrite Urine Negative (Negative); Protein Urine Negative (Negative); RBC Urine Automated 0-4 /hpf (0-4); Specific Gravity Urine 1.008 (1.000-1.030); Urobilinogen Urine Negative (Negative)
--- NOTE | 2021-12-05 13:11 | CT Scan Report ---
CT angio head w con CLINICAL HISTORY: seizure TECHNIQUE: CT angiography of the head was performed following intravenous administration of iodinated contrast. Coronal and sagittal MIPS were obtained from the axial data set and were submitted for rev iew. Automated dose lowering techniques and/or adjustment according to patient size were utilized fo r this examination. All measurements were calculated based on NASCET criteria. Comparison: Comparison is made to CT neck 12/05/[address] head 12/05/2021 FINDINGS: CTA Head: The anterior and posterior cerebral circulations are patent. No aneurysm, dissection, or A VN is seen. Extensive atherosclerotic disease is seen. There is hemodynamically significant stenosis of the basilar artery just prior to the origin of the posterior cerebral arteries. There is yash gin of the left posterior cerebral artery. There is prominent atherosclerosis of the supraclinoid seg ment of the right internal carotid artery which however is likely not hemodynamically significant. 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 No jim occlusion or significant aneurysm is seen. ACT 112: Negative or not required by law. Electronically signed by: Moisés Tobias M.D. 12/05/2021 1:09 PM
--- NOTE | 2021-12-05 13:17 | CT Scan Report ---
NECK CTA HISTORY: seizure, stroke history TECHNIQUE: Multiaxial CT images of the neck were performed following the intravenous administration o f contrast to evaluate the major cervical vessels. Maximum intensity projection images were also obta ined. All measurements were calculated based on NASCET criteria. A dose lowering technique was utili zed adhering to the principles of ALARA. COMPARISON STUDY: None. FINDINGS: The aortic arch and proximal great vessels are widely patent. There is no significant sten osis, occlusion, or dissection identified within the bilateral common carotid, internal carotid, or c ervical vertebral arteries. Mild narrowing within the distal intracranial vertebral arteries due to t he calcified plaque. There is also focal moderate to severe narrowing within the mid basilar artery. Mild calcified plaque within the carotid bifurcations. IMPRESSION: 1. No significant stenosis, occlusion, or dissection identified within the common or internal carotid arteries. 2. Focal moderate to severe narrowing within the mid basilar artery. 3. Mild narrowing within the distal intracranial vertebral arteries due to the calcified plaque. ACT 112: Negative or not required by law. Electronically signed by: Dao Madera M.D. 12/05/2021 1:14 PM
--- NOTE | 2021-12-05 16:53 | XCELERA ---
[id number]
[2021-12-05] MEDS: ASPIRIN 81 MG CHEW PO SCH (17:24)
--- NOTE | 2021-12-05 17:25 | Magnetic Resonance Report ---
MR brain seizure wo con CLINICAL HISTORY: seizure protocol TECHNIQUE: Multiplanar and multisequence MR images of the brain were obtained prior to and following administration of gadolinium contrast. Comparison: Comparison is made to MRI brain 07/16/2018 and CTA head and neck 12/05/2021 FINDINGS: No abnormal restricted diffusion is identified. Foci of T2 and FLAIR hyperintensity are noted in the paraventricular areas consistent with chronic small vessel ischemic disease. Ex vacuo ventriculomegal y and sulcal enlargement is noted compatible with diffuse encephalomalacia. Focal encephalomalacia is seen in the left supra ventricular white matter compatible with old hernia. There is no mass effect or midline shift. There is no evidence of acute intraparenchymal hemorrhage. No extra axial fluid col lections are seen. The corpus callosum, pituitary gland, and cerebellar tonsils appear grossly unrema rkable. High-resolution images of the temporal lobes do not demonstrate any signal abnormality. Flow voids of the major intracranial arterial vessels are identified. The imaged portions of the para nasal sinuses, mastoid air cells, and orbits are unremarkable. IMPRESSION: No acute abnormality. In particular, no edema in the temporal lobes bilaterally in this postictal pat ient. Chronic volume loss and age related white matter changes are seen. ACT 112: Negative or not required by law. Electronically signed by: Moisés Tobias M.D. 12/05/2021 5:24 PM
[2021-12-05] MEDS: INSULIN ASPART PER UNIT SC SCH ×2 (18:06→20:55)
[2021-12-05] MEDS: APIXABAN 5 MG TABLET PO SCH (20:30)
[2021-12-05] MEDS: PRAVASTATIN SOD 10 MG TAB PO SCH (20:31)
[2021-12-06 06:53] LABS: Hemoglobin 10.7 g/dl (12.0-16.0); Mean Corpuscular Hemoglobin 30.9 pg (25.0-34.0); Mean Corpuscular Hgb Conc 33.4 g/dL (32.0-36.0); Mean Corpuscular Volume 92.5 fL (80.0-100.0); Mean Platelet Volume 10.4 fL (9.4-12.3); Platelet Count 170 K/uL (130-400); RDW Coefficient of Variation 13.9 % (11.5-14.5); RDW Standard Deviation 46.5 fL (36.4-46.3); Red Blood Count 3.46 M/uL (3.93-5.22); White Blood Count 3.91 K/ul (4.8-10.8)
[2021-12-06 07:28] LABS: Albumin Globulin Ratio 1.4 (0.9-2); Albumin Level 3.2 gm/dl (3.4-5.0); BUN Creatinine Ratio 12.1 (10-20); Calcium 8.5 mg/dl (8.5-10.1); Creatinine Clr Calc Pharmacy 34.9 ml/min; Est GFR (African American) 43.1 ml/min; Est GFR (Non-African American) 37.2 ml/min; Globulin 2.3 gm/dl (2.5-4.0); Total Protein 5.5 gm/dl (6.0-8.3)
--- NOTE | 2021-12-06 08:36 | Electrocardiogram Report ---
Test Reason : Blood Pressure : / mmHG Vent. Rate : 053 BPM Atrial Rate : 053 BPM P-R Int : 132 ms QRS Dur : 092 ms QT Int : 464 ms P-R-T Axes : -09 -17 049 degrees QTc Int : 435 ms Sinus bradycardia Left ventricular hypertrophy with repolarization abnormality Abnormal ECG When compared with ECG of 05-DEC-2021 09:38, No significant change was found Confirmed by Amilcar Diamond ([id number]) on 12/06/2021 8:35:43 AM Referred By: REFERRED SELF Confirmed By:Amilcar Diamond
[2021-12-06] MEDS ORDERED: VALSARTAN/HCTZ 80/12.5MG TAB PO SCH (09:00)
[2021-12-06] MEDS: hydroCHLOROthiazide 25 MG TAB PO SCH (09:11)
[2021-12-06] MEDS: ASPIRIN 81 MG CHEW PO SCH (09:11)
[2021-12-06] MEDS: VALSARTAN 80 MG TAB PO SCH (09:12)
[2021-12-06] MEDS: APIXABAN 5 MG TABLET PO SCH ×2 (09:12→20:31)
[2021-12-06] MEDS: INSULIN ASPART PER UNIT SC SCH ×4 (09:19→21:16)
[2021-12-06] MEDS: levETIRAcetam 500 MG in 0.9 % SODIUM CHLORIDE 100 ML IV SCH ×2 (09:19→20:32)
--- NOTE | 2021-12-06 10:32 | Electroencephalogram ---
EEG Procedure Note Date of Service December 06, 2021 Start / End Times Start Time: 8:41 End Time: 9:01 Referring Physician Albert Graf History New onset seizure with history of syncopal events. Home Medication List Medication Instructions Recorded Confirmed Type valsartan 80 1 tab PO QAM 07/16/18 12/05/21 History mg-hydrochlorothiazide 12.5 mg tablet (Diovan HCT) insulin glargine 100 unit/mL 30 unit subcut HS 12/12/18 12/05/21 History subcutaneous solution (Lantus U-100 Insulin) apixaban 5 mg tablet (Eliquis) 5 mg PO BID 12/05/21 12/05/21 History ciclopirox 8 % topical solution 1 applic topical HS 12/05/21 12/05/21 History metformin 850 mg tablet 850 mg PO BID 12/05/21 12/05/21 History pravastatin 10 mg tablet 10 mg PO HS 12/05/21 12/05/21 History Inpatient Medication List Apixaban (Apixaban 5 Mg Tablet) 5 mg PO BID DAHIANA Stop: 01/04/22 20:59 Last Admin: 12/06/21 09:12 Dose: 5 mg Documented By: Admin: 12/05/21 20:30 Dose: 5 mg Documented By: TMD Aspirin (Aspirin 81 Mg Chew) 81 mg PO DAILY DAHIANA Stop: 01/04/22 16:14 Last Admin: 12/06/21 09:11 Dose: 81 mg Documented By: Admin: 12/05/21 17:24 Dose: 81 mg Documented By: MG Hydrochlorothiazide (Hydrochlorothiazide 25 Mg Tab) 12.5 mg PO DAILY DAHIANA Stop: 01/05/22 08:59 Last Admin: 12/06/21 09:11 Dose: 12.5 mg Documented By: MG Levetiracetam 500 mg/ Sodium (Chloride) 105 mls @ 420 mls/hr IV Q12 DAHIANA Stop: 01/05/22 08:29 Last Admin: 12/06/21 09:19 Dose: 420 mls/hr Documented By: MG Insulin Aspart (Insulin Aspart Per Unit) 0 units SC ACHS DAHIANA Stop: 01/04/22 16:29 Last Admin: 12/06/21 09:19 Dose: 4 units Documented By: MG Co-signed By: BT Admin: 08/23/22 20:55 Dose: Not Given Documented By: TMD Co-signed By: CB Admin: 12/05/21 18:06 Dose: Not Given Documented By: MG Miscellaneous (Order Awaiting Action [Ciclopirox 8 % Solution]) 1 each N/A QS [facility] Stop: 01/04/22 15:59 Last Admin: 12/06/21 09:19 Dose: Not Given Documented By: Admin: 12/06/21 00:34 Dose: Not Given Documented By: Admin: 12/05/21 17:20 Dose: Not Given Documented By: MG Pravastatin Sodium (Pravastatin Sod 10 Mg Tab) 10 mg PO HS [facility] Stop: 01/04/22 20:59 Last Admin: 12/05/21 20:31 Dose: 10 mg Documented By: TMD Valsartan (Valsartan 80 Mg Tab) 80 mg PO QAM [facility] Stop: 01/05/22 08:59 Last Admin: 12/06/21 09:12 Dose: 80 mg Documented By: MG Discontinued Medications Sodium Chloride (Nss) 500 mls @ 999 mls/hr IV .Q31M DAHIANA Stop: 12/05/21 10:30 Last Infusion: 12/05/21 13:19 Dose: 0 mls/hr Documented By: Admin: 12/05/21 12:02 Dose: 999 mls/hr Documented By: NA Ioversol (Optiray 300 500ml) 115 ml IV ONCE ONE Stop: 12/05/21 12:45 Last Admin: 12/05/21 12:47 Dose: 115 ml Documented By: [facility] Description This is a 21 electrode EEG with a single channel dedicated to limited EKG. The electrodes were placed in accordance with the International 10-20 system. Interpretation Background activity: Well organized, low to moderate amplitude, composed of generalized theta, occasional frontal delta, muscle contraction artifacts, and beta waveforms. There is distinctive posterior rhythm, up to 30 V, 9 Hz recording in wakefulness, which attenuates with eye opening bilaterally. Sleep pattern: None. Stimulation maneuvers: Photic stimulations induced posterior driving responses bilaterally and symmetrically. Hyperventilation is not attempted. Abnormal activity: There is no electrographic seizures, epileptiform discharge, or other abnormal waveforms. Impression: This is a normal EEG, recorded in wakefulness only. There is no electrographic seizures or epileptogenic discharge. Clinical Correlation Normal interictal electroencephalography does not rule out seizure disorder. If clinically indicated, sleep deprived and prolonged EEG recording might offer further information.
--- NOTE | 2021-12-06 11:52 | Neurology Consultation ---
Date of Consultation December 06, 2021 Assessment & Plan (1) Syncope: (2) Seizure: (3) Elevated troponin: (4) LOC (loss of consciousness): (5) Difficulty with speech: (6) Essential hypertension: (7) Mixed hyperlipidemia: (8) Recent head trauma: Plan ASSESSMENT and PLAN: 1. Convulsive syncope Impression: The patient had an episode, which was highly suggestive of convulsive syncope. Elevated prolactin suggest loss of consciousness but does not prove seizure disorder. Brain MRI shows significant intracranial atherosclerosis, more prominently involving posterior circulation, chronic ischemic changes and small vessel disease, but no acute pathology. EEG was normal. The patient has history of multiple episodes of loss of consciousness, and they were unwitnessed. She was recently hospitalized at [facility] after a fall, which was likely due to another syncopal event. Even though there is no definitive clinical or electrophysiologic evidence to prove seizure disorder, but based on history of unwitnessed episodes of loss of consciousness, episodic speech disturbance and confusions, and risk factors for seizure disorder including prior cerebrovascular accident, it is reasonable to start patient on antiepileptic medication empirically, until further work-up completed. Plan: We will start patient on Keppra 250 mg twice a day for a week. If she tolerates low-dose, then dosage will be increased to 500 mg twice a day. Potential side effects are fully explained to the patient. If cardiac work-up reveals explanation of the patient's recurrent syncopal episodes, antiepileptic medication will be stopped. Based on planned cardiac work-up findings, the patient might need additional, preferably outpatient prolonged EEG study. Seizure precautions are fully explained to patient and family. The patient should not drive motor vehicles until getting clearance from neurology clinic. Cardiology consultation regarding cardiac work-up for recurrent syncope. We should check orthostatics. 2. History of cerebrovascular accident Impression: The patient has significant atherosclerosis of posterior circulation, and history of cerebrovascular accident several years ago. She has been on Eliquis, low-dose aspirin, and statin. Eliquis is was started 3 weeks ago, after the patient had COVID-19 infection, and TIA symptoms. Plan: We will keep the patient on Eliquis, and aspirin as suggested by [facility]. After 3 months, Eliquis should be stopped and the patient should stay on double antipl atelet treatment with aspirin and Plavix. Continue on lipid-lowering treatment. Goal LDL level is lower than 70. Management of hypertension. Based on significant posterior circulation atherosclerosis, we should avoid hypotension. Fall precautions are fully explained the patient. 3. 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 However, if the patient's symptoms persist to suggest vertebrobasilar insufficiency, then outpatient consultation with neuro interventionalist will be indicated. Thank you for the consultation. History of Present Illness Reason for Consultation: Convulsive syncope Requesting Physician: Sahil Dixon MD Attending Physician: Sahil Dixon MD History of Present Illness The patient is a very pleasant, 75-year-old right-handed female, who was brought to emergency department yesterday morning, after the patient had a syncopal episode with convulsing. She was standing in the kitchen, and reported feeling dizzy and lightheaded, and sat down in a chair. According to daughter, she lost her consciousness approximately 20 seconds later, her eyes rolled backwards, with generalized tonic-clonic activity, foaming from mouth, and bowel incontinence. Convulsion lasted less than a minute, and the patient regained her consciousness in a minute or so. Her daughter did not notice color changes or diaphoresis. When EMS arrived, the patient was having some word finding difficulty but otherwise, she was back to her baseline neurologically. In emergency department, the patient denied any problem. She was initially loaded with IV Keppra. After discussing case with on-call neurology, she was admitted to hospital for further evaluation. Since admission, she has not had any new neurological symptoms including dizziness, lightheadedness, vertigo, cranial nerve symptoms, sensorimotor deficit, seizure or seizure-like activities. Brain MRI showed moderately significant, subcortical, periventricular white matter disease, and small left frontal encephalomalacia, from prior stroke but no acute pathology. CT angiogram of head and neck did show again mid basilar moderate to severe stenosis, and bilateral P1 stenosis with additional intracranial atherosclerotic changes. EEG was recently completed, which did not show epileptogenic discharges or other abnormality. The patient was recently hospitalized at [facility], after she fell down from stairs. Based on my review of [facility] documents, she was having COVID-19 infection then, and admitted for mechanical fall initially. However, during hospital stay, the patient developed expressive speech difficulty, and acute stroke was suspected. CT perfusion study showed some posterior circulation abnormality, but the patient's symptoms were resolved, and she was not considered a candidate for thrombolytic treatment. CT angiography studies showed similar findings as mentioned above. Because she was suffering from COVID-19 infection with possibility of hypercoagulable state, an additional intracranial atherosclerosis, and cardiac history, they suggested keeping patient on Eliquis with aspirin for 3 months. The patient was discharged home on Eliquis 5 mg twice a day, aspirin 81 mg daily, and statin. Cardiac work-up including Holter monitoring and catheterization were suggested then, which has not been done so far. After discharge, the patient has been doing well other than intermittent dizziness and lightheadedness. The patient has history of cerebrovascular accident, approximately 15 years ago, and she has recovered well. She has been having episodes of word finding difficulty according to family, with some cognitive problems, but the patient denies any cognitive issues. She has had few unwitnessed syncopal episodes in the past. She does not remember having other seizure or seizure-like activities but according to family, she gets confusional episodes time to time. I have reviewed the patient's chart including documents from recent hospitalization at [facility]. I have reviewed imaging studies and visualized them personally. I have discussed the case with the patient and the patient's daughter on the phone and I have answered their questions in detail. Allergies Allergy/AdvReac Type Severity Reaction Status Date / Time olmesartan Allergy Intermediate coughing/sn Verified 12/05/21 10:39 eezing Home Medications Medication Instructions Recorded Confirmed Type valsartan 80 1 tab PO QAM 07/16/18 12/05/21 History mg-hydrochlorothiazide 12.5 mg tablet (Diovan HCT) insulin glargine 100 unit/mL 30 unit subcut HS 12/12/18 12/05/21 History subcutaneous solution (Lantus U-100 Insulin) apixaban 5 mg tablet (Eliquis) 5 mg PO BID 12/05/21 12/05/21 History ciclopirox 8 % topical solution 1 applic topical HS 12/05/21 12/05/21 History metformin 850 mg tablet 850 mg PO BID 12/05/21 12/05/21 History pravastatin 10 mg tablet 10 mg PO HS 12/05/21 12/05/21 History Patient History Medical History Cancer ?uterine (s/p hysterectomy, no chemo or radiation) CKD (chronic kidney disease) Essential hypertension 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 HENT: Normal exam with inspection. Left facial bruise and laceration is noticed. CV: Hearth rhtyhm is regular. Neck: Supple, no carotid bruits. Lungs: Non-labored and comfortable breathing. Abdomen: Soft, non-tender, non-distended. Skin: No rash or ecchymosis other than facial bruise and old laceration. Extremities: No edema or cyanosis other than left leg chronic swelling. Scars at knees for knee surgeries. NEUROLOGICAL EXAMINATION: Mental Status: Alert and oriented to place, person and time. Good insight. Cranial Nerves: II-XII are intact. No nystagmus. Funduscopy: Normal looking optic discs. Motor: 5-/5 in all extremities without asymmetry. DTR's: 1+ in upper extremities, 1- in knees and trace in ankles symmetrically. No Babinsky. Tone: Normal without spasticity or rigidity. Sensory: Intact to all sensory modalities except decreased vibratory sensation in feet. Coordination: No dysmetria with FTN testing. Speech: Fluent. Comprehension is intact. Gait: Not assessed. Musculoskeletal: Normal muscle bulk, no atrophy. Results & Data ([facility]) Vital Signs (Past 12 Hours) Vital Signs Temp Pulse Pulse Resp BP BP Pulse Ox 12/06/21 11:07 36.3 C L 51 L 18 129/75 96 12/06/21 07:56 36.7 C 50 L 18 128/78 96 12/06/21 06:46 47 L 12/06/21 03:43 36.9 C 52 L 18 134/77 95 12/06/21 00:26 60 O2 Del Method 12/06/21 11:07 Room Air 12/06/21 07:56 Room Air 12/06/21 06:46 12/06/21 03:43 Room Air 12/06/21 00:26 Laboratory Results Laboratory Results - last 24 hr 12/05/21 12/05/21 12/05/21 11:07 12:00 12:34 WBC RBC Hgb Hct MCV MCH MCHC RDW Std Deviation RDW Coeff of Murray Plt Count MPV Sodium Potassium Chloride Carbon Dioxide Anion Gap BUN Creatinine Est Cr Clr Drug Dosing Est GFR ( Amer) Est GFR (Non-Af Amer) BUN/Creatinine Ratio Glucose POC Glucose Calcium Total Bilirubin AST ALT Alkaline Phosphatase Troponin I High Sens 32.3 H Total Protein Albumin Globulin Albumin/Globulin Ratio Urine Color Yellow Urine Appearance Clear Urine pH 7.0 Ur Specific [place] 1.008 Urine Protein Negative Urine Glucose (UA) Negative Urine Ketones Negative Urine Blood Trace H Urine Nitrite Negative Urine Bilirubin Negative Urine Urobilinogen Negative Ur Leukocyte Esterase Negative Urine WBC (Auto) 1-5 Urine RBC (Auto) 0-4 U Hyaline Cast (Auto) 0 U Epithel Cells (Auto) 20-30 H Urine Bacteria (Auto) Negative SARS-CoV-2, RNA, NAAT NEGATIVE 12/05/21 12/05/21 12/05/21 14:58 18:03 20:51 WBC RBC Hgb Hct MCV MCH MCHC RDW Std Deviation RDW Coeff of Murray Plt Count MPV Sodium Potassium Chloride Carbon Dioxide Anion Gap BUN Creatinine Est Cr Clr Drug Dosing Est GFR ( Amer) Est GFR (Non-Af Amer) BUN/Creatinine Ratio Glucose POC Glucose 84 99 Calcium Total Bilirubin AST ALT Alkaline Phosphatase Troponin I High Sens 31.5 H Total Protein Albumin Globulin Albumin/Globulin Ratio Urine Color Urine Appearance Urine pH Ur Specific [place] Urine Protein Urine Glucose (UA) Urine Ketones Urine Blood Urine Nitrite Urine Bilirubin Urine Urobilinogen Ur Leukocyte Esterase Urine WBC (Auto) Urine RBC (Auto) U Hyaline Cast (Auto) U Epithel Cells (Auto) Urine Bacteria (Auto) SARS-CoV-2, RNA, NAAT 12/06/21 12/06/21 12/06/21 06:31 06:31 07:48 WBC 3.91 L RBC 3.46 L Hgb 10.7 L Hct 32.0 L MCV 92.5 MCH 30.9 MCHC 33.4 RDW Std Deviation 46.5 H RDW Coeff of Murray 13.9 Plt Count 170 MPV 10.4 Sodium 140 Potassium 4.0 Chloride 108 H Carbon Dioxide 28 Anion Gap 4 BUN 17 Creatinine 1.40 H Est Cr Clr Drug Dosing 34.9 Est GFR ( Amer) 43.1 Est GFR (Non-Af Amer) 37.2 BUN/Creatinine Ratio 12.1 Glucose 103 H POC Glucose 110 H Calcium 8.5 Total Bilirubin 1.0 AST 11 L ALT 8 Alkaline Phosphatase 55 Troponin I High Sens Total Protein 5.5 L Albumin 3.2 L Globulin 2.3 L Albumin/Globulin Ratio 1.4 Urine Color Urine Appearance Urine pH Ur Specific [place] Urine Protein Urine Glucose (UA) Urine Ketones Urine Blood Urine Nitrite Urine Bilirubin Urine Urobilinogen Ur Leukocyte Esterase Urine WBC (Auto) Urine RBC (Auto) U Hyaline Cast (Auto) U Epithel Cells (Auto) Urine Bacteria (Auto) SARS-CoV-2, RNA, NAAT 12/06/21 11:21 WBC RBC Hgb Hct MCV MCH MCHC RDW Std Deviation RDW Coeff of Murray Plt Count MPV Sodium Potassium Chloride Carbon Dioxide Anion Gap BUN Creatinine Est Cr Clr Drug Dosing Est GFR ( Amer) Est GFR (Non-Af Amer) BUN/Creatinine Ratio Glucose POC Glucose 208 H Calcium Total Bilirubin AST ALT Alkaline Phosphatase Troponin I High Sens Total Protein Albumin Globulin Albumin/Globulin Ratio Urine Color Urine Appearance Urine pH Ur Specific [place] Urine Protein Urine Glucose (UA) Urine Ketones Urine Blood Urine Nitrite Urine Bilirubin Urine Urobilinogen Ur Leukocyte Esterase Urine WBC (Auto) Urine RBC (Auto) U Hyaline Cast (Auto) U Epithel Cells (Auto) Urine Bacteria (Auto) SARS-CoV-2, RNA, NAAT Diagnostic Findings Head CT 12/05/21 09:47 CT head/brain wo con CLINICAL HISTORY: fall, poss seizure Technique: Contiguous axial CT images of the head were acquired from the base of the skull to the vertex without intravenous contrast administration. Images were viewed in brain, subdural and bone windows. Automated dose lowering techniques and/or adjustment according to patient size were utilized for this exam. Comparison: Comparison is made to CT head 07/16/2018 and MRI brain 07/16/2018 Findings: The ventricles, basal cisterns, and cerebral sulci are normal. There is no acute intracranial hemorrhage or evidence of acute territorial infarction. Neither mass effect, shift of the midline structures, nor abnormal extra-axial fluid collections are shown. A few white matter hypodensities may represent encephalomalacia. Focal encephalomalacia about the left insula is unchanged. Imaged portions of the paranasal sinuses and mastoid air cells are clear. The orbits appear normal. There are no acute fractures of the calvaria or scalp swelling. Impression: No acute intracranial hemorrhage, no evidence of acute territorial infarction or other acute intracranial disease process. Stable findings of prior infarcts and small vessel ischemic change. ACT 112: Negative or not required by law. Electronically signed by: Moisés Tobias M.D. 12/05/2021 10:36 AM Head CTA 12/05/21 11:38 CT angio head w con CLINICAL HISTORY: seizure TECHNIQUE: CT angiography of the head was performed following intravenous administration of iodinated contrast. Coronal and sagittal MIPS were obtained from the axial data set and were submitted for review. Automated dose lowering techniques and/or adjustment according to patient size were utilized for this examination. All measurements were calculated based on NASCET criteria. Comparison: Comparison is made to CT neck 12/05/[address] head 12/05/2021 FINDINGS: CTA Head: The anterior and posterior cerebral circulations are patent. No aneurysm, dissection, or AVN is seen. Extensive atherosclerotic disease is seen. There is hemodynamically significant stenosis of the basilar artery just prior to the origin of the posterior cerebral arteries. There is origin of the left posterior cerebral artery. There is prominent atherosclerosis of the supraclinoid segment of the right internal carotid artery which however is likely not hemodynamically significant. 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 No jim occlusion or significant aneurysm is seen. ACT 112: Negative or not required by law. Electronically signed by: Moisés Tobias M.D. 12/05/2021 1:09 PM Neck CTA 12/05/21 11:38 NECK CTA HISTORY: seizure, stroke history TECHNIQUE: Multiaxial CT images of the neck were performed following the intravenous administration of contrast to evaluate the major cervical vessels. Maximum intensity projection images were also obtained. All measurements were calculated based on NASCET criteria. A dose lowering technique was utilized adhering to the principles of ALARA. COMPARISON STUDY: None. FINDINGS: The aortic arch and proximal great vessels are widely patent. There is no significant stenosis, occlusion, or dissection identified within the bilateral common carotid, internal carotid, or cervical vertebral arteries. Mild narrowing within the distal intracranial vertebral arteries due to the calcified plaque. There is also focal moderate to severe narrowing within the mid basilar artery. Mild calcified plaque within the carotid bifurcations. IMPRESSION: 1. No significant stenosis, occlusion, or dissection identified within the common or internal carotid arteries. 2. Focal moderate to severe narrowing within the mid basilar artery. 3. Mild narrowing within the distal intracranial vertebral arteries due to the calcified plaque. ACT 112: Negative or not required by law. Electronically signed by: Dao Madera M.D. 12/05/2021 1:14 PM Brain MRI 12/05/21 11:54 MR brain seizure wo con CLINICAL HISTORY: seizure protocol TECHNIQUE: Multiplanar and multisequence MR images of the brain were obtained prior to and following administration of gadolinium contrast. Comparison: Comparison is made to MRI brain 07/16/2018 and CTA head and neck 12/05/2021 FINDINGS: No abnormal restricted diffusion is identified. Foci of T2 and FLAIR hyperintensity are noted in the paraventricular areas consistent with chronic small vessel ischemic disease. Ex vacuo ventriculomegaly and sulcal enlargement is noted compatible with diffuse encephalomalacia. Focal encephalomalacia is seen in the left supra ventricular white matter compatible with old hernia. There is no mass effect or midline shift. There is no evidence of acute intraparenchymal hemorrhage. No extra axial fluid collections are seen. The corpus callosum, pituitary gland, and cerebellar tonsils appear grossly unremarkable. High-resolution images of the temporal lobes do not demonstrate any signal abnormality. Flow voids of the major intracranial arterial vessels are identified. The imaged portions of the paranasal sinuses, mastoid air cells, and orbits are unremarkable. IMPRESSION: No acute abnormality. In particular, no edema in the temporal lobes bilaterally in this postictal patient. Chronic volume loss and age related white matter changes are seen. ACT 112: Negative or not required by law. Electronically signed by: Moisés Tobias M.D. 12/05/2021 5:24 PM EEG-- normal ECHO--Reviewed
--- NOTE | 2021-12-06 12:35 | Hospitalist Progress Note ---
Date of Service December 06, 2021 Assessment & Plan (1) Syncope: Plan: Probably related to seizure activity. Appreciate neurology consultation. Now on Keppra. EEG reportedly negative. Brain MRI scan reveals chronic changes. Continue seizure precautions for now. 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 (2) Chronic cerebral ischemia: Plan: -Continue pravastatin (3) Type 2 diabetes mellitus: Plan: -Holding lantus and metformin for now . SSI. ADa diet (4) Essential hypertension: Plan: Holding Valsartan-hydrochlorothiazide for now as she's hemodynamically stable and had syncopal episode (5) Mixed hyperlipidemia: Plan: low cholesterol diet. Plan Eventual discharge to home. Hopefully tomorrow, December 07 Admission and Anticipated Discharge Date Admission Date: December 05, 2021 Subjective Alert and oriented. She is aware she probably has a seizure disorder and is now on Keppra. Neurology consultation appreciated. EEG was unremarkable. Brain MRI scan revealed chronic changes. Hopefully she will be able to go home tomorrow, December 07 Review of Systems Review of Systems: Constitutional-no fever or chills ENT-no blurred vision, no double vision, no epistaxis, no sore throat Respiratory-no cough, no wheezing, no shortness of breath Cardiac-no palpitations, no chest pain, no syncope GI-no nausea, vomiting, diarrhea, melena, hematochezia -no urinary retention, no urinary incontinence, no dysuria, no hematuria Musculoskeletal-no joint pain, no muscle tenderness Skin-no bruising, no rashes, no pruritus Neuro-no isolated weakness, no paresthesia, no weakness. Recurrent syncope however which is probably seizure related Psych-no depression, no anxiety Physical Exam Physical Exam: General-alert and oriented x3, no fevers, no chills HEENT-head atraumatic and normocephalic, pupils equal and reactive to light, extraocular muscles intact Neck-no lymphadenopathy or thyromegaly, trachea midline Chest-clear to auscultation percussion. No rales wheezing or rhonchi Cardiac-regular rate and rhythm, normal S1 and S2, no murmurs Abdomen-normal bowel sounds, nontender, no hepatosplenomegaly Extremities-no cyanosis, clubbing, or edema Neuro-cranial nerves II through XII intact, motor and sensory function within normal limits, strength symmetrical , no focal deficits Psych-normal affect, normal mood Results & Data Results & Data ([facility]) Vital Signs (Past 12 Hours) Vital Signs Temp Pulse Pulse Resp BP BP Pulse Ox 12/06/21 11:07 36.3 C L 51 L 18 129/75 96 12/06/21 07:56 36.7 C 50 L 18 128/78 96 12/06/21 06:46 47 L 12/06/21 03:43 36.9 C 52 L 18 134/77 95 O2 Del Method 12/06/21 11:07 Room Air 12/06/21 07:56 Room Air 12/06/21 06:46 12/06/21 03:43 Room Air Laboratory Results 12/06/21 06:31 12/06/21 06:31 PG Care Time/CCT Total # of Minutes Spent Total Time Spent with Patient: Total time spent is greater than 50% in coordination of care (as documented) at patient's floor/unit and/or counseling patient: Coding Level of Care Code 22893 Subseq Hosp Care Lvl 3 Diagnoses Syncope R55 Chronic cerebral ischemia I67.82 Type 2 diabetes mellitus E11.9 Essential hypertension I10 Mixed hyperlipidemia E78.2
[2021-12-06] MEDS: PRAVASTATIN SOD 10 MG TAB PO SCH (20:31)
[2021-12-07 07:46] LABS: Hemoglobin 11.1 g/dl (12.0-16.0); Mean Corpuscular Hemoglobin 31.1 pg (25.0-34.0); Mean Corpuscular Hgb Conc 33.6 g/dL (32.0-36.0); Mean Corpuscular Volume 92.4 fL (80.0-100.0); Mean Platelet Volume 10.6 fL (9.4-12.3); Platelet Count 174 K/uL (130-400); RDW Coefficient of Variation 13.9 % (11.5-14.5); RDW Standard Deviation 46.5 fL (36.4-46.3); Red Blood Count 3.57 M/uL (3.93-5.22); White Blood Count 3.94 K/ul (4.8-10.8)
[2021-12-07 08:10] LABS: Albumin Globulin Ratio 1.4 (0.9-2); Albumin Level 3.3 gm/dl (3.4-5.0); BUN Creatinine Ratio 12.8 (10-20); Bilirubin,Total 0.7 mg/dl (0.2-1.0); Calcium 8.6 mg/dl (8.5-10.1); Creatinine Clr Calc Pharmacy 32.8 ml/min; Est GFR (Non-African American) 34.5 ml/min; Globulin 2.3 gm/dl (2.5-4.0); Potassium 4.1 mmol/L (3.5-5.1); Total Protein 5.6 gm/dl (6.0-8.3)
--- NOTE | 2021-12-07 08:12 | Hospitalist Progress Note ---
Date of Service December 07, 2021 Assessment & Plan (1) Syncope: Plan: Probably related to seizure activity. Appreciate neurology consultation. Now on Keppra. EEG reportedly negative. Brain MRI scan reveals chronic changes. Continue seizure precautions for now. 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 (2) Chronic cerebral ischemia: Plan: -Continue pravastatin (3) Type 2 diabetes mellitus: Plan: -Holding lantus and metformin for now . SSI. ADa diet (4) Essential hypertension: Plan: Holding Valsartan-hydrochlorothiazide for now as she's hemodynamically stable and had syncopal episode (5) Mixed hyperlipidemia: Plan: low cholesterol diet. Plan Eventual discharge to home. Hopefully tomorrow, December 07 Admission and Anticipated Discharge Date Admission Date: December 05, 2021 Results & Data Results & Data ([facility]) Vital Signs (Past 12 Hours) Vital Signs Temp Pulse Pulse Resp BP Pulse Ox O2 Del Method 12/07/21 06:20 47 L 12/07/21 06:40 97.9 F 68 18 144/76 H 93 Room Air 12/07/21 04:00 97.7 F 48 L 18 133/70 95 Room Air 12/07/21 00:53 50 L 12/07/21 00:17 98.1 F 52 L 18 152/78 H 98 Room Air PG Care Time/CCT Total # of Minutes Spent Total Time Spent with Patient: Total time spent is greater than 50% in coordination of care (as documented) at patient's floor/unit and/or counseling patient: Coding Diagnoses Syncope R55 Chronic cerebral ischemia I67.82 Type 2 diabetes mellitus E11.9 Essential hypertension I10 Mixed hyperlipidemia E78.2
[2021-12-07] MEDS: INSULIN ASPART PER UNIT SC SCH ×2 (09:06→12:44)
[2021-12-07] MEDS: ASPIRIN 81 MG CHEW PO SCH (09:07)
[2021-12-07] MEDS: APIXABAN 5 MG TABLET PO SCH (09:07)
[2021-12-07] MEDS: hydroCHLOROthiazide 25 MG TAB PO SCH (09:07)
[2021-12-07] MEDS: VALSARTAN 80 MG TAB PO SCH (09:08)
[2021-12-07] MEDS: levETIRAcetam 500 MG in 0.9 % SODIUM CHLORIDE 100 ML IV SCH (09:08)
--- NOTE | 2021-12-07 12:04 | Neurology Progress Note ---
Date of Service December 07, 2021 Assessment & Plan (1) Syncope: (2) Seizure: (3) Elevated troponin: (4) LOC (loss of consciousness): (5) Difficulty with speech: (6) Essential hypertension: (7) Mixed hyperlipidemia: (8) Recent head trauma: Plan ASSESSMENT and PLAN: 1. Convulsive syncope Impression: The patient had an episode, which was highly suggestive of convulsive syncope. Elevated prolactin suggest loss of consciousness but does not prove seizure disorder. Brain MRI shows significant intracranial atherosclerosis, more prominently involving posterior circulation, chronic ischemic changes and small vessel disease, but no acute pathology. EEG was normal. The patient has history of multiple episodes of loss of consciousness, and they were unwitnessed. She was recently hospitalized at [facility] after a fall, which was likely due to another syncopal event. Even though there is no definitive clinical or electrophysiologic evidence to prove seizure disorder, but based on history of unwitnessed episodes of loss of consciousness, episodic speech disturbance and confusions, and risk factors for seizure disorder including prior cerebrovascular accident, it is reasonable to start patient on antiepileptic medication empirically, until further work-up completed. Plan: Continue on Keppra 250 mg twice a day for a week. If she tolerates low-dose, then dosage will be increased to 500 mg twice a day. Potential side effects are fully explained to the patient. If cardiac work-up reveals explanation of the patient's recurrent syncopal episodes, antiepileptic medication will be stopped. Based on planned cardiac work-up findings, the patient might need additional, preferably outpatient prolonged EEG study. Seizure precautions are fully explained to patient and family. The patient should not drive motor vehicles until getting clearance from neurology clinic. Cardiology evaluation regarding cardiac work-up for recurrent syncope. F/u at neurology clinic in a month. We will sign off. 2. History of cerebrovascular accident Impression: The patient has significant atherosclerosis of posterior circulation, and history of cerebrovascular accident several years ago. She has been on Eliquis, low-dose aspirin, and statin. Eliquis was started 3 weeks ago, after the patient had COVID-19 infection, and recurrent TIA symptoms based on possibility of COVID induced hypercoagulable state and they suggested 3 months treatment on Eliquis. Plan: We will keep the patient on Eliquis, and aspirin as suggested by [facility]. After 3 months, Eliquis should be stopped and the patient should stay on double antiplatelet treatment with aspirin and Plavix. Continue on lipid-lowering treatment. Goal LDL level is lower than 70. Management of hypertension. Based on significant posterior circulation atherosclerosis, we should avoid hypotension. Fall precautions are fully explained the patient. 3. 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 However, if the patient's symptoms persist to suggest vertebrobasilar insufficiency, then outpatient consultation with neuro-interventionalist will be indicated. Admission and Anticipated Discharge Date Admission Date: December 05, 2021 Subjective Alert and oriented. No new symptoms. Ambulates well. No seizure or seizure-like activity. Review of Systems Review of Systems: All systems reviewed & are unremarkable except as noted in HPI & below Physical Exam Physical Exam: General Examination: Constitutional: Well developed overweight person in no acute distress. HENT: Normal exam with inspection. Left facial bruise and laceration is noticed. CV: Hearth rhtyhm is regular. Neck: Supple, no carotid bruits. Lungs: Non-labored and comfortable breathing. Abdomen: Soft, non-tender, non-distended. Skin: No rash or ecchymosis other than facial bruise and old laceration. Extremities: No edema or cyanosis other than left leg chronic swelling. Scars at knees for knee surgeries. NEUROLOGICAL EXAMINATION: Mental Status: Alert and oriented to place, person and time. Good insight. Cranial Nerves: II-XII are intact. No nystagmus. Funduscopy: Normal looking optic discs. Motor: 5-/5 in all extremities without asymmetry. DTR's: 1+ in upper extremities, 1- in knees and trace in ankles symmetrically. No Babinsky. Tone: Normal without spasticity or rigidity. Sensory: Intact to all sensory modalities except decreased vibratory sensation in feet. Coordination: No dysmetria with FTN testing. Speech: Fluent. Comprehension is intact. Gait: Not assessed. Musculoskeletal: Normal muscle bulk, no atrophy. Results & Data ([facility]) Vital Signs (Past 12 Hours) Vital Signs Temp Pulse Pulse Resp BP BP Pulse Ox 12/07/21 11:54 36.5 C 52 L 18 169/93 H 100 12/07/21 11:39 36.6 C 68 18 144/76 H 150/82 H 93 12/07/21 06:20 47 L 12/07/21 06:40 36.6 C 68 18 144/76 H 93 12/07/21 04:00 36.5 C 48 L 18 133/70 95 12/07/21 00:53 50 L 12/07/21 00:17 36.7 C 52 L 18 152/78 H 98 O2 Del Method 12/07/21 11:54 Room Air 12/07/21 11:39 12/07/21 06:20 12/07/21 06:40 Room Air 12/07/21 04:00 Room Air 12/07/21 00:53 12/07/21 00:17 Room Air Laboratory Results Laboratory Results - last 24 hr 12/06/21 12/06/21 12/07/21 16:37 20:55 06:33 WBC 3.94 L RBC 3.57 L Hgb 11.1 L Hct 33.0 L MCV 92.4 MCH 31.1 MCHC 33.6 RDW Std Deviation 46.5 H RDW Coeff of Murray 13.9 Plt Count 174 MPV 10.6 Sodium Potassium Chloride Carbon Dioxide Anion Gap BUN Creatinine Est Cr Clr Drug Dosing Est GFR ( Amer) Est GFR (Non-Af Amer) BUN/Creatinine Ratio Glucose POC Glucose 88 76 Calcium Total Bilirubin AST ALT Alkaline Phosphatase Total Protein Albumin Globulin Albumin/Globulin Ratio 12/07/21 12/07/21 12/07/21 06:33 07:45 11:43 WBC RBC Hgb Hct MCV MCH MCHC RDW Std Deviation RDW Coeff of Murray Plt Count MPV Sodium 139 Potassium 4.1 Chloride 107 Carbon Dioxide 26 Anion Gap 6 BUN 19 Creatinine 1.49 H Est Cr Clr Drug Dosing 32.8 Est GFR ( Amer) 40.0 Est GFR (Non-Af Amer) 34.5 BUN/Creatinine Ratio 12.8 Glucose 120 H POC Glucose 131 H 153 H Calcium 8.6 Total Bilirubin 0.7 AST 11 L ALT 9 Alkaline Phosphatase 54 Total Protein 5.6 L Albumin 3.3 L Globulin 2.3 L Albumin/Globulin Ratio 1.[address] 12/05/21 09:47 CT head/brain wo con CLINICAL HISTORY: fall, poss seizure Technique: Contiguous axial CT images of the head were acquired from the base of the skull to the vertex without intravenous contrast administration. Images were viewed in brain, subdural and bone windows. Automated dose lowering techniques and/or adjustment according to patient size were utilized for this exam. Comparison: Comparison is made to CT head 07/16/2018 and MRI brain 07/16/2018 Findings: The ventricles, basal cisterns, and cerebral sulci are normal. There is no acute intracranial hemorrhage or evidence of acute territorial infarction. Neither mass effect, shift of the midline structures, nor abnormal extra-axial fluid collections are shown. A few white matter hypodensities may represent encephalomalacia. Focal encephalomalacia about the left insula is unchanged. Imaged portions of the paranasal sinuses and mastoid air cells are clear. The orbits appear normal. There are no acute fractures of the calvaria or scalp swelling. Impression: No acute intracranial hemorrhage, no evidence of acute territorial infarction or other acute intracranial disease process. Stable findings of prior infarcts and small vessel ischemic change. ACT 112: Negative or not required by law. Electronically signed by: Moisés Tobias M.D. 12/05/2021 10:36 AM Head CTA 12/05/21 11:38 CT angio head w con CLINICAL HISTORY: seizure TECHNIQUE: CT angiography of the head was performed following intravenous administration of iodinated contrast. Coronal and sagittal MIPS were obtained from the axial data set and were submitted for review. Automated dose lowering techniques and/or adjustment according to patient size were utilized for this examination. All measurements were calculated based on NASCET criteria. Comparison: Comparison is made to CT neck 12/05/[address] head 12/05/2021 FINDINGS: CTA Head: The anterior and posterior cerebral circulations are patent. No aneurysm, dissection, or AVN is seen. Extensive atherosclerotic disease is seen. There is hemodynamically significant stenosis of the basilar artery just prior to the origin of the posterior cerebral arteries. There is origin of the left posterior cerebral artery. There is prominent atherosclerosis of the supraclinoid segment of the right internal carotid artery which however is likely not hemodynamically significant. 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 No jim occlusion or significant aneurysm is seen. ACT 112: Negative or not required by law. Electronically signed by: Moisés Tobias M.D. 12/05/2021 1:09 PM Neck CTA 12/05/21 11:38 NECK CTA HISTORY: seizure, stroke history TECHNIQUE: Multiaxial CT images of the neck were performed following the intravenous administration of contrast to evaluate the major cervical vessels. Maximum intensity projection images were also obtained. All measurements were calculated based on NASCET criteria. A dose lowering technique was utilized adhering to the principles of ALARA. COMPARISON STUDY: None. FINDINGS: The aortic arch and proximal great vessels are widely patent. There is no significant stenosis, occlusion, or dissection identified within the bilateral common carotid, internal carotid, or cervical vertebral arteries. Mild narrowing within the distal intracranial vertebral arteries due to the calcified plaque. There is also focal moderate to severe narrowing within the mid basilar artery. Mild calcified plaque within the carotid bifurcations. IMPRESSION: 1. No significant stenosis, occlusion, or dissection identified within the common or internal carotid arteries. 2. Focal moderate to severe narrowing within the mid basilar artery. 3. Mild narrowing within the distal intracranial vertebral arteries due to the calcified plaque. ACT 112: Negative or not required by law. Electronically signed by: Dao Madera M.D. 12/05/2021 1:14 PM Brain MRI 12/05/21 11:54 MR brain seizure wo con CLINICAL HISTORY: seizure protocol TECHNIQUE: Multiplanar and multisequence MR images of the brain were obtained prior to and following administration of gadolinium contrast. Comparison: Comparison is made to MRI brain 07/16/2018 and CTA head and neck 12/05/2021 FINDINGS: No abnormal restricted diffusion is identified. Foci of T2 and FLAIR hyperintensity are noted in the paraventricular areas consistent with chronic small vessel ischemic disease. Ex vacuo ventriculomegaly and sulcal enlargement is noted compatible with diffuse encephalomalacia. Focal encephalomalacia is seen in the left supra ventricular white matter compatible with old hernia. There is no mass effect or midline shift. There is no evidence of acute intrapar enchymal hemorrhage. No extra axial fluid collections are seen. The corpus callosum, pituitary gland, and cerebellar tonsils appear grossly unremarkable. High-resolution images of the temporal lobes do not demonstrate any signal abnormality. Flow voids of the major intracranial arterial vessels are identified. The imaged portions of the paranasal sinuses, mastoid air cells, and orbits are unrema rkable. IMPRESSION: No acute abnormality. In particular, no edema in the temporal lobes bilaterally in this postictal patient. Chronic volume loss and age related white matter changes are seen. ACT 112: Negative or not required by law. Electronically signed by: Moisés Tobias M.D. 12/05/2021 5:24 PM EEG-- normal
--- NOTE | 2021-12-07 18:34 | Discharge Summary ---
Date of Service December 07, 2021 Admission HPI Per Admitting Provider Yahaira is a 75 year old female with a PMH significant for recent syncopal episode and fall, previous hemorrhagic stroke (1994), CKD, DM II, HTN, Uterine cancer S/P hysterectomy and chemotherapy, who presented to the [facility] ED on 12/05/21 with a chief complaint of seizure-like activity. In the ED the patient was found to be afebrile, hemodynamically stable, and stable on room air. CT of the head was not read as having acute changes but my read shows a circular irregularity in the right ventricle that was not seen on her MRI of the brain in 2019. Prolactin was noted to be elevated at 42.66, and TSH was elevated at 33.2. We were asked to admit the patient to continue evaluation of the etiology of her syncopal events and possible seizure-like activity. Getting ready to check blood sugar this morning, then got shakey then had a shaking unresponsive episode ~1 minute. Coming out of it was unresponsive, then very confused with no memory of what happened. Had garbled speech after, was trying to talk but couldn't get words out just prior to the seizure. some dizziness right before, no preceding chest pain/chest pressure. She reports she often feels lightheaded which sometimes improves with sitting. Denies orthostasis when standing, gets intermittent lightheaded without positional change. Garbled speech, then seized right after. +bowel incontience during episode. +increased fatigue in the previous few weeks. No fevers, chills but is chilly in the room. 'Cold all the time, wears a sweater in 80 degree weather' Denies headache, neck pain. 'I have no pain at all' Daughter caught her while having the seizure, did not fall or hit the ground No chest pain, chest pressure, dififculty breathing, nausea, vomiting, dysuria, hematuria, BRBPR/melena. At [facility] 2-3 weeks ago was noted to have a UTI at that time and was treated with Keflex for a few days. She presented to [facility] after she lost conciousness and fell down the stairs. Unwitnessed fall. Sustained contusion to L face. Still on eliquis, per family was placed on blood thinner due a 'blockage in her heart, and narrowing in her brain.' Takes a baby aspirin for years for strokes, no hx of DAPT. Brain bleed 1994. Was told to start eliquis due to severity of narrowing in her brain. Medical History: Reviewed Medications: Reviewed. Has not taken medications today. Surgical History: Reviewed Allergies: Reviewed Social History: Code Status: Surrogate DM would be Judy [phone], backup would be granddaughter [phone]. DNR/DNI. Principal Diagnosis seizure disorder basilar artery partial occlusion depressed systolic function Discharge Exam The patient appeared stable Vital signs as documented. Lungs are clear to auscultation and appear unlabored Cardiac exam, Rhythm is regular.. slight systolic murmur is heard, rubs or gallops. Abdominal exam reveals normal bowel sounds, soft non tender, no masses Extremities are nonedematous and both pedal pulses are normal. Neurologic exam is alert and oriented, no focal loss of strength or sensation Skin is without bruises or rashes Psychologically is without concerns for anxiety or depression. Discharge Data Allergies Allergy/AdvReac Type Severity Reaction Status Date / Time olmesartan Allergy Intermediate coughing/sn Verified 12/05/21 10:39 eezing Consultations 12/05/21 11:28 ED Decision to Admit Stat 12/06/21 07:57 Consult Neurology Routine Ordered Studies 12/05/21 09:47 CT head/brain wo con Stat 12/05/21 11:38 CT angio head w con Stat CT angio neck with con Stat 12/05/21 11:54 MRI Brain [MR brain seizure wo con] Urgent Hospital Course (1) Syncope: Probably related to seizure activity. Appreciate neurology consultation. continues on Keppra. EEG reportedly negative. Brain MRI scan reveals chronic changes. given partial occlusion of basilar artery, neurology endorse the plan to keep on eliquis and aspirin for 3 months and then DAPT after that. consider referal to neurology at tertiary center to discuss options for basilar artery issue Keppra 250 mg bid for one week, then 500 mg bid given chronic systolic dysfunction, will continue on aspirin and arb, consider outpt cardiology follow up, given EF improved from [place], this brings to question of takotsubo (2) Chronic cerebral ischemia: -Continue pravastatin, can discuss high intensity statin, pt wants to discuss with pcp (3) Type 2 diabetes mellitus: -resume home regimen, (4) Essential hypertension: continue Valsartan-at [employer] hydrochlorothiazide (5) Mixed hyperlipidemia: low cholesterol diet. Total Time Total Time Spent Total Time Spent (In Minutes): It required greater than 30 minutes to prepare this patient for discharge Discharge Plan Discharge Items Patient Disposition: Home - Self-Care Reason For Visit: SEIZURE Discharge Diagnosis: syncope seizure disorder basilar artery stenosis Condition on Discharge: Good Activity: Per Instructions section Activity Comment: slowly resume activity Non-emergency contact: Primary Care Provider and Neurologist Call non-emergency contact if: your symptoms worsen Follow-up/Referrals: Nora Sheikh CRNP [Primary Care Provider] - (PLEASE CALL YOUR PRIMARY CARE PROVIDER TO SCHEDULE A DISCHARGE FOLLOW-UP APPOINTMENT WITHIN 7-10 DAYS.) Diet: Regular Addtl Attending Provider Instructions: You should be on a blood thinner and aspirin for 3 months then transition to aspirin and Plavix please follow up with your primary care doctor and consider referral to neurologist Please do not start your metformin until 12/08/21 we have altered your blood pressure medicines by removing the "water Pill " portion to avoid making you dehydrated and help prevent you from passing out YOU have been started on a new medicine. Keppra, to help reduce your passing out spells Pending Studies at Discharge: No Stand-Alone Forms: My [facility] Web [employer], Smoking Cessation Medications and DC Order Prescriptions: New valsartan [Diovan] 80 mg Tablet 80 mg PO QAM Qty: 30 0RF aspirin [Children's Aspirin] 81 mg Tablet,Chewable 81 mg PO DAILY Qty: 90 0RF levetiracetam [Keppra] 250 mg tablet 250 mg PO BID Qty: 120 4RF Rx Instructions: 250 mg twice a day for one week then 500mg twice a day Continued insulin glargine [Lantus U-100 Insulin] 100 unit/mL Solution 30 unit SUBCUT HS metformin 850 mg tablet 850 mg PO BID ciclopirox 8 % solution 1 applic TOPICAL HS pravastatin 10 mg tablet 10 mg PO HS Eliquis 5 mg tablet 5 mg PO BID Discontinued valsartan-hydrochlorothiazide [Diovan HCT] 80-12.5 mg tablet 1 tab PO QAM Discharge Orders: Discharge Order (Routine); Ordered 12/07/21 Ordered By: Manohar Ferraro Admission Data Admit Date/Time: 12/05/21 12:14 Attending Provider: Manohar Ferraro Admit Provider: Ye Ruiz Primary Care Provider: Nora Sheikh Other Providers: Ye Ruiz ; Zach Krishna ; [facility],Home Healthcare Other Interventions: Discharge Summary Assessment (RN) Last Done: 12/07/21 11:39 Coding Level of Care Code D/C DAY MANAGEMENT >30 MINS Diagnoses Syncope R55 Chronic cerebral ischemia I67.82 Type 2 diabetes mellitus E11.9 Essential hypertension I10 Mixed hyperlipidemia E78.2
== END 2021-12-07 15:06 | disposition home health service (06) ==
LOC: ED 09:29 → INTOOBSV 12:14 → SUATTDRO 12:14 → 2N 12:14